=== PATIENT | male | born 1970 | race Caucasian/White ===

== ENCOUNTER 2017-01-11 12:25 | Emergency (ER) | payer MEDICAID | END 2017-01-11 14:25 | disposition home or self-care (01) | DX: M25.511 Pain in right shoulder (principal); G89.29 Other chronic pain; M54.9 Dorsalgia, unspecified; R03.0 Elevated blood-pressure reading, without diagnosis of hypertension; Z87.891 Personal history of nicotine dependence ==

== ENCOUNTER 2017-02-08 16:38 | Outpatient (CLI) | payer MEDICARE, MEDICAID ==
--- NOTE | 2017-02-08 18:08 | MRI Report ---
EXAM: RIGHT SHOULDER MRI WITHOUT CONTRAST EXAM DATE: 02/08/2017 05:17 PM. CLINICAL HISTORY: Tear of right rotator cuff, unspecified tear extent. COMPARISON: None. TECHNIQUE: Multiplanar, multisequence T1-weighted and fluid-sensitive sequences of the shoulder witho ut contrast. Other: None. FINDINGS: Acromioclavicular Region: The acromion is type II. AC joint shows moderate to severe osteoarthritis. Please see series 501 image 11. The coracoacromial and coracoclavicular ligaments are intact. No suba cromial/subdeltoid bursal fluid. Glenohumeral Region: No subluxation. No effusion or loose bodies. The articular cartilage is unremark able. The glenohumeral ligaments and joint capsule are unremarkable. Bone Marrow: No fractures are identified. Labrum: The labrum is unremarkable on this nonarthrographic study. Musculature/Rotator Cuff: Some increased T2 signal without focal tear is seen at the supraspinatus an d infraspinatus portions of the rotator cuff. Subscapularis also somewhat thickened. Teres minor is n ormal. No proximal muscular edema or fatty atrophy. Biceps Tendon: The long head of the biceps tendon and biceps cha are intact. Other: The subcutaneous tissues are unremarkable. IMPRESSION: 1. Type II unipartite undersurface osseous acromion shape. [id number] osteoarthritic changes of AC joint. Some edema on both sides of this articulation. Bone marrow shows no fractures. 2. Some tendinopathy/tendinitis seen at the supraspinatus and infraspinatus portions of the rotator c uff. Subscapularis is somewhat thickened. Teres minor is normal. No proximal muscular edema or fatty atrophy. Long head of biceps appears unremarkable. Labrum, capsular structures are normal. [facility] Referring Provider Line: [phone] SITE ID: [id number]
== END 2017-02-08 16:39 | disposition home or self-care (01) ==
LOC: DI 16:38
PROVIDERS: ATTEND Internal Medicine
DX: M19.011 Primary osteoarthritis, right shoulder (principal); M75.81 Other shoulder lesions, right shoulder

== ENCOUNTER 2017-10-20 09:53 | Outpatient (CLI) | payer MEDICARE, MEDICAID ==
[2017-10-20] MEDS ORDERED: IOPAMIDOL-300 50 ML VIAL ONE (10:19)
[2017-10-20] MEDS ORDERED: IOPAMIDOL-300 50 ML VIAL PO ONE (11:39)
--- NOTE | 2017-10-20 18:02 | CT Report ---
CT ABDOMEN WITHOUT CONTRAST: 10/20/2017 CLINICAL INDICATION: Epigastric pain. COMPARISON: 10/16/2015 TECHNIQUE: Axial CT images of the abdomen were obtained without intravenous contrast. Oral contrast was administered. In accordance with CT protocol optimization, one or more of the following dose reduction techniques were utilized for this exam: Automated exposure control, adjustment of mA and/or KV based on patient size, or use of iterative reconstructive technique. FINDINGS: Limited evaluation of the lung bases is unremarkable. The liver demonstrates a calcified granuloma in the medial left lobe. Allowing for the lack of intravenous contrast, no other focal liver abnormality is appreciated. The spleen, pancreas, kidneys and adrenal glands appear unremarkable. The gallbladder is surgically absent. No bowel dilatation, free gas, or free fluid is present. No abdominal adenopathy is seen. Osseous structures demonstrate degenerative changes. IMPRESSION: INCIDENTAL HEPATIC GRANULOMA. CHANGES OF CHOLECYSTECTOMY. TD: 10/20/2017 18:01
== END 2017-10-20 09:54 | disposition home or self-care (01) ==
LOC: DI 09:53
PROVIDERS: ATTEND Internal Medicine
DX: R10.13 Epigastric pain (principal); Z90.49 Acquired absence of other specified parts of digestive tract
CPT/HCPCS: 74150; Q9967

== ENCOUNTER 2017-12-30 20:53 | Emergency (ER) | payer MEDICAID, MEDICARE ==
[2017-12-30] MEDS ORDERED: SODIUM CHLORIDE 0.9% 1,000 ML IV ONE ×2 (21:28→22:20)
[2017-12-30 21:49] LABS: BASOPHILS # (AUTO) 0.1 10^3/uL (0.0-0.1); BASOPHILS % (AUTO) 1.3 %; EOSINOPHILS # (AUTO) 0.3 10^3/uL (0.0-0.7); EOSINOPHILS % (AUTO) 3.5 %; HGB - HEMOGLOBIN 16.7 g/dL (14.0-18.0); LYMPHOCYTES # (AUTO) 2.3 10^3/uL (1.5-3.5); LYMPHOCYTES % (AUTO) 26.9 %; MEAN CORPUSCULAR HEMOGLOBIN 27.7 pg (27.0-31.0); MEAN CORPUSCULAR HGB CONC 32.6 g/dL (32.0-36.0); MEAN PLATELET VOLUME 7.7 fL (7.4-11.4); MONOCYTES # (AUTO) 0.5 10^3/uL (0.0-1.0); MONOCYTES % (AUTO) 5.7 %; NEUTROPHILS # (AUTO) 5.4 10^3/uL (1.5-6.6); NEUTROPHILS % (AUTO) 62.6 %; PLT - PLATELET COUNT 322 10^3/uL (130-450); RED BLOOD COUNT 6.02 10^6/uL (4.70-6.10); RED CELL DISTRIBUTION WIDTH 14.6 % (12.0-15.0); WHITE BLOOD COUNT 8.7 x10^3/uL (4.8-10.8)
[2017-12-30] MEDS ORDERED: ONDANSETRON 4 MG/2 ML VIAL IVP STA (22:20)
[2017-12-30] MEDS ORDERED: LOPERAMIDE 2 MG CAPSULE PO STA (22:20)
[2017-12-30 22:32] LABS: ALBUMIN 4.6 g/dL (3.2-5.5); ALBUMIN/GLOBULIN RATIO 1.3 (1.0-2.2); BILIRUBIN,TOTAL 1.3 mg/dL (0.2-1.0); CALCIUM 9.5 mg/dL (8.5-10.3); CREATININE 0.8 mg/dL (0.6-1.2); TOTAL PROTEIN 8.2 g/dL (6.7-8.2)
[2017-12-30] MEDS ORDERED: KETOROLAC 60 MG/2 ML VIAL IVP STA (23:08)
[2017-12-30] MEDS ORDERED: METOCLOPRAMIDE 10 MG/2 ML VIAL IVP STA (23:08)
[2017-12-30] MEDS ORDERED: diphenhydrAMINE INJ 50 MG/ML VIAL IVP STA (23:08)
--- NOTE | 2017-12-30 23:55 | ED Physician Documentation ---
PD HPI NVD - Stated complaint Stated Complaint: N/V/D - Chief complaint Chief Complaint: Abd Pain - History obtained from History obtained from: Patient, Family - History of Present Illness Timing - onset: How many days ago (3) Timing - details: Gradual onset, Still present Associated symptoms: Abdominal pain Contributing factors: Bad food. No: Sick contact Similar symptoms before: Work up / diagnostics Recently seen: Not recently seen - Additonal information Additional information: Patient is a 47 year old male who is presenting to the emergency department for nausea, vomiting, diarrhea and headache. patient states that his symptoms started about three days ago with diarrhea after eating at [employer]. patient started with diarrhea which has improved, but developed vomiting over the last few days. patient states that being sick has also set off one of his migraines. Review of Systems Ten Systems: 10 systems reviewed and negative Constitutional: denies: Fever, Chills GI: reports: Nausea, Vomiting, Diarrhea Neurologic: reports: Headache PD PAST MEDICAL HISTORY - Past Medical History Cardiovascular: High cholesterol GI: GERD Psych: Depression, Anxiety, Post traumatic stress disorder Musculoskeletal: Chronic back pain - Past Surgical History Past Surgical History: Yes General: Cholecystectomy HEENT: Myringotomy (tubes), Tonsil/Adenoidectomy - Present Medications Home Medications: Ambulatory Orders Medication Instructions Recorded Confirmed DULoxetine [Cymbalta] 20 mg PO DAILY 08/23/14 08/05/16 oxyCODONE/ACET 5/325 [Percocet 5 1 - 2 each PO Q4-6H PRN #15 tablet 08/23/14 mg/325 mg] Omeprazole 20 mg PO DAILY 04/07/15 08/05/16 Cyclobenzaprine [Flexeril] 10 mg TID PRN 10/16/15 08/05/16 diazePAM [Valium] 5 mg PO TID PRN 10/16/15 08/05/16 Sucralfate 1 gm PO ACHS #120 tablet 10/31/15 08/05/16 raNITIdine [Zantac] 150 mg PO BID #60 tablet 10/31/15 08/05/16 Butalb/Acetaminophen/Caffeine 1 tab PO Q4HR PRN 07/08/16 08/05/16 [Fioricet 50-300-40 mg Capsule] Cholecalciferol [Vitamin D3] 1 tab PO DAILY 07/08/16 08/05/16 Docusate Sodium 100 mg PO BID #60 capsule 07/08/16 08/05/16 Pregabalin [Lyrica] 1 tab PO BID 07/08/16 08/05/16 QUEtiapine [SEROquel] 50 mg PO DAILY 07/08/16 08/05/16 buPROPion [Wellbutrin Sr] 1 tab PO BID 07/08/16 08/05/16 Ondansetron Odt [Zofran] 4 mg TL Q6H PRN #14 tablet 12/30/17 - Allergies Allergies/Adverse Reactions: Allergies Allergy/AdvReac Type Severity Reaction Status Date / Time codeine Allergy Severe Nausea Verified 12/30/17 21:09 meperidine HCl * AdvReac Headache Verified 12/30/17 21:09 [From Demerol] mirtazapine AdvReac Headache Verified 12/30/17 21:09 - Social History Does the pt smoke?: No Smoking Status: Never smoker Does the pt drink ETOH?: Yes Does the pt have substance abuse?: Yes - Immunizations Immunizations are current?: Yes - POLST Patient has POLST: No PD ED PE NORMAL - Vitals Vital signs reviewed: Yes - General General: Alert and oriented X 3 - HEENT HEENT: Atraumatic - Cardiac Cardiac: RRR - Respiratory Respiratory: No respiratory distress - Derm Derm: Normal color, Warm and dry - Extremities Extremities: No deformity - Neuro Neuro: Alert and oriented X 3 Eye Opening: Spontaneous PD ED PE EXPANDED - General General: Alert - HEENT HEENT: Dry mucous membranes - Abdomen Abdomen: Tender to palpation, Epigastric. No: Rebound, Guarding Results - Vitals Vitals: Vital Signs - 24 hr 12/30/17 12/30/17 21:07 23:56 Temperature 36.4 C L Heart Rate 81 87 Respiratory 16 15 Rate Blood Pressure 142/101 H 133/83 H O2 Saturation 99 99 Oxygen O2 Source Room air - Labs Labs: Laboratory Tests 12/30/17 12/30/17 21:41 21:41 WBC 8.7 RBC 6.02 Hgb 16.7 Hct 51.2 MCV 85.0 MCH 27.7 MCHC 32.6 RDW 14.6 Plt Count 322 MPV 7.7 Neut # 5.4 Lymph # 2.3 [place] # 0.5 Eos # 0.3 Baso # 0.1 Absolute Nucleated RBC 0.01 Nucleated RBC % 0.1 Sodium 138 Potassium 3.5 Chloride 108 Carbon Dioxide 20 L Anion Gap 10.0 BUN 21 H Creatinine 0.8 Estimated GFR (MDRD) 103 Glucose 93 Calcium 9.5 Total Bilirubin 1.3 H AST 31 ALT 47 Alkaline Phosphatase 81 Total Protein 8.2 Albumin 4.6 Globulin 3.6 Albumin/Globulin Ratio 1.3 Lipase 55 H PD MEDICAL DECISION MAKING - ED course Complexity details: reviewed old records, reviewed results, re-evaluated patient , considered differential, d/w patient, d/w family ED course: Patient was seen and examined at bedside. IV access was gained and labs were drawn. patient was treated with fluid bolus and zofran. patient stated that he was developing a headache and was treated with toradol, reglan and benadryl. Patient ultimately was treated with two liters of fluids. patient's diagnostics were relatively unremarkable. Patient's symptoms had improved and he had no episodes of vomiting or diarrhea while in the emergency department. patients episode of C-diff was over six years ago after antibiotic use. Patient had no active diarrhea so c-diff was very unlikely. Departure - Departure Disposition: 01 Home, Self Care Clinical Impression: Gastroenteritis Condition: Good Instructions: ED Gastroenteritis Bacterial Follow-Up: BRETT TAM MD [Primary Care Provider] - As Needed Prescriptions: Ondansetron Odt [Zofran] 4 mg TL Q6H PRN #14 tablet PRN Reason: Nausea / Vomiting Comments: Your symptoms today are being caused by gastroenteritis. It is important that you take the zofran for nausea and stay well hydrated. You should drink gatorade or other electrolyte solution. You can follow up with your doctor if your symptoms persist. You may return to the emergency department at any time for new, worsening or uncontrollable symptoms. Discharge Date/Time: 12/31/17 00:07
[2017-12-30 23:57] VITALS: BP 133/83
== END 2017-12-31 00:07 | disposition home or self-care (01) ==
LOC: ED 20:53
DX: K52.9 Noninfective gastroenteritis and colitis, unspecified (principal); E78.00 Pure hypercholesterolemia, unspecified; K21.9 Gastro-esophageal reflux disease without esophagitis
CPT/HCPCS: 36415; 80053; 83690; 85025; 96361; 96374; 96375; 99283; 99284; A9270; J1200; J2765

== ENCOUNTER 2018-01-05 09:44 | Outpatient (CLI) | payer MEDICARE ==
[2018-01-05 10:52] LABS: HB2 TOTAL 17.4 g/dL; HEMOGLOBIN A1C 0.6 g/dL; HEMOGLOBIN A1C % 5.3 % (4.6-6.2)
[2018-01-05 11:17] LABS: ALBUMIN 4.4 g/dL (3.2-5.5); ALBUMIN/GLOBULIN RATIO 1.6 (1.0-2.2); ALKALINE PHOSPHATASE 66 IU/L (42-121); ALT ALANINE AMINOTRANSFERASE 34 IU/L (10-60); AST ASPARTATE AMINOTRANSFERASE 27 IU/L (10-42); BILIRUBIN,TOTAL 0.9 mg/dL (0.2-1.0); BUN - BLOOD UREA NITROGEN 14 mg/dL (6-20); CARBON DIOXIDE - CO2 25 mmol/L (21-32); CHLORIDE 105 mmol/L (101-111); CHOL/HDL RATIO 7.5 (<5.0); CHOLESTEROL 240 mg/dL; CREATININE 0.9 mg/dL (0.6-1.2); GFR - MDRD 90 (>89); GLUCOSE 106 mg/dL (70-100); HDL CHOLESTEROL 32 mg/dL; LDL CHOLESTEROL,CALCULATED 154 mg/dL; LDL/HDL RATIO 4.8 (<3.6); SODIUM 138 mmol/L (135-145); TOTAL PROTEIN 7.2 g/dL (6.7-8.2); VLDL CHOLESTEROL 54 mg/dL
== END 2018-01-05 09:45 | disposition home or self-care (01) ==
LOC: LAB 09:44
PROVIDERS: ATTEND Internal Medicine
DX: R73.9 Hyperglycemia, unspecified (principal); I10 Essential (primary) hypertension; E78.5 Hyperlipidemia, unspecified; E55.9 Vitamin D deficiency, unspecified; E53.8 Deficiency of other specified B group vitamins
CPT/HCPCS: 36415; 80053; 80061; 83036; 83721; 84443

== ENCOUNTER 2018-05-11 09:38 | Outpatient (CLI) | payer MEDICARE | END 2018-05-11 09:39 | disposition home or self-care (01) | LOC: SC 09:38 | PROVIDERS: ATTEND Nurse Practitioner Family | DX: G47.10 Hypersomnia, unspecified (principal); G47.8 Other sleep disorders; R06.83 Snoring; R06.00 Dyspnea, unspecified; Z87.891 Personal history of nicotine dependence; R05 Cough; R06.2 Wheezing | CPT/HCPCS: 99204; G0463; 99212 ==

== ENCOUNTER 2018-05-26 20:33 | Outpatient (CLI) | payer MEDICARE | END 2018-05-26 20:34 | disposition home or self-care (01) | LOC: EDBD → SC 20:33 | PROVIDERS: ATTEND Internal Medicine Pulmonary Disease | DX: G47.33 Obstructive sleep apnea (adult) (pediatric) (principal); G47.61 Periodic limb movement disorder | CPT/HCPCS: 95810 ==

== ENCOUNTER 2018-06-27 14:15 | Outpatient (CLI) | payer MEDICARE | END 2018-06-27 14:16 | disposition home or self-care (01) | LOC: SC 14:15 | PROVIDERS: ATTEND Nurse Practitioner Family | DX: G47.33 Obstructive sleep apnea (adult) (pediatric) (principal); G47.61 Periodic limb movement disorder | CPT/HCPCS: 99214; G0463; 99212 ==

== ENCOUNTER 2018-12-31 13:51 | Emergency (ER) | payer MEDICARE ==
[2018-12-31 14:14] VITALS: BP 143/102
[2018-12-31] MEDS ORDERED: PREGABALIN 25 MG CAPSULE PO STA (14:29)
[2018-12-31] MEDS ORDERED: PREGABALIN 100 MG CAPSULE PO STA (14:29)
--- NOTE | 2018-12-31 14:31 | ED Physician Documentation ---
PD HPI MHE - Stated complaint Stated Complaint: WITHDRAWALS - Chief complaint Chief Complaint: MHE - History obtained from History obtained from: Patient, Family - History of Present Illness Primary symptom: Other (48-year-old gentleman on Lyrica long-term for fibromyalgia ran out 2 days ago because of a lapse in his Medicare part D and is feeling shooting pains all over, hot on the upper half and cold on the lower half, and anxious.) Review of Systems Constitutional: denies: Fever, Chills Cardiac: denies: Chest pain / pressure, Palpitations Respiratory: denies: Dyspnea, Cough GI: denies: Abdominal Pain PD PAST MEDICAL HISTORY - Past Medical History Cardiovascular: High cholesterol GI: GERD Psych: Depression, Anxiety, Post traumatic stress disorder Musculoskeletal: Chronic back pain - Past Surgical History Past Surgical History: Yes General: Cholecystectomy HEENT: Myringotomy (tubes), Tonsil/Adenoidectomy - Present Medications Home Medications: Ambulatory Orders Medication Instructions Recorded Confirmed oxyCODONE/ACET 5/325 [Percocet 5 1 - 2 each PO Q4-6H PRN #15 tablet 08/23/14 12/31/18 mg/325 mg] Omeprazole 20 mg PO DAILY 04/07/15 12/31/18 Cyclobenzaprine [Flexeril] 10 mg TID PRN 10/16/15 12/31/18 Sucralfate 1 gm PO ACHS #120 tablet 10/31/15 12/31/18 raNITIdine [Zantac] 150 mg PO BID #60 tablet 10/31/15 08/05/16 Butalb/Acetaminophen/Caffeine 1 tab PO Q4HR PRN 07/08/16 12/31/18 [Fioricet 50-300-40 mg Capsule] Cholecalciferol [Vitamin D3] 1 tab PO DAILY 07/08/16 12/31/18 Docusate Sodium 100 mg PO BID #60 capsule 07/08/16 12/31/18 Pregabalin [Lyrica] 1 tab PO BID 07/08/16 12/31/18 QUEtiapine [SEROquel] 50 mg PO DAILY 07/08/16 08/05/16 Ondansetron Odt [Zofran] 4 mg TL Q6H PRN #14 tablet 12/30/17 12/31/18 Lorazepam [Ativan] 1 mg PO TID PRN #7 tablet 12/31/18 - Allergies Allergies/Adverse Reactions: Allergies Allergy/AdvReac Type Severity Reaction Status Date / Time codeine Allergy Severe Nausea Verified 12/31/18 14:14 meperidine HCl * AdvReac Headache Verified 12/31/18 14:14 [From Demerol] mirtazapine AdvReac Headache Verified 12/31/18 14:14 - Social History Does the pt smoke?: No Smoking Status: Never smoker Does the pt drink ETOH?: Yes Does the pt have substance abuse?: Yes - Immunizations Immunizations are current?: Yes - POLST Patient has POLST: No PD ED PE NORMAL - Vitals Vital signs reviewed: Yes - General General: Alert and oriented X 3, Other (Slightly restless) - HEENT HEENT: PERRL, Pharynx benign - Cardiac Cardiac: RRR, No murmur - Respiratory Respiratory: No respiratory distress, Clear bilaterally - Abdomen Abdomen: Non tender - Neuro Neuro: Alert and oriented X 3, Normal speech Results - Vitals Vitals: Vital Signs - 24 hr 12/31/18 14:08 Temperature 36.2 C L Heart Rate 84 Respiratory 20 Rate Blood Pressure 143/102 H O2 Saturation 100 Oxygen O2 Source Room air PD MEDICAL DECISION MAKING - ED course ED course: 48-year-old gentleman presents with Lyrica withdrawal. He is given a dose here. He has a prescription for Lyrica and, just cannot afford it. I offered to give him a prescription for gabapentin but he has intolerable side effects with that so he is given a prescription for a few Ativan until the issue is worked out. 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 Return for new or worsening symptoms or if there is any other way we can help you.
== END 2018-12-31 14:55 | disposition home or self-care (01) ==
LOC: ED 13:51
DX: F19.230 Other psychoactive substance dependence with withdrawal, uncomplicated (principal); R52 Pain, unspecified; F41.9 Anxiety disorder, unspecified; F43.10 Post-traumatic stress disorder, unspecified; Z79.891 Long term (current) use of opiate analgesic
CPT/HCPCS: 99283; A9270

== ENCOUNTER 2019-01-02 07:39 | Inpatient (IN) | payer MEDICARE ==
--- NOTE | 2019-01-02 08:09 | ED Physician Documentation ---
PD HPI NVD - Stated complaint Stated Complaint: VOMITING - Chief complaint Chief Complaint: Abd Pain - History obtained from History obtained from: Patient - History of Present Illness Timing - onset: How many days ago (2) Timing - duration: Days (2) Timing - details: Abrupt onset, Still present Associated symptoms: Abdominal pain (Mid to upper abdomen), Loss of appetite. No: Fever, Chest pain, Hematemesis (but is bilious), Near syncope / syncope, Dysuria Contributing factors: No: Sick contact, Bad food, Travel Improved by: No: Vomiting Worsened by: Eating, Moving, Position Similar symptoms before: Diagnosis (He says it does feel similar to his gallbladder problems in the past.) Recently seen: Emergency Dept (He was seen in the emergency room 3 days ago due to being out of his Lyrica and feeling lightheaded and general aches. He was given a dose of Ativan. He is unable to get his Lyrica filled because of insurance changing. He was given a prescription for Ativan in the interim. He states later in that day after the visit he started with nausea vomiting and abdominal pain. He thought it was still related to the stopping of the Lyrica and try the Ativan without success. He is continued with abdominal pain nausea and vomiting. He states he has not had any diarrhea. He denies fever or chills.) Review of Systems Constitutional: reports: Fatigue. denies: Fever, Chills Nose: denies: Rhinorrhea / runny nose, Congestion Throat: denies: Sore throat Cardiac: denies: Chest pain / pressure, Palpitations Respiratory: denies: Cough GI: reports: Abdominal Pain, Nausea, Vomiting. denies: Constipation, Diarrhea, Hematemesis : denies: Dysuria, Frequency Musculoskeletal: denies: Neck pain, Back pain Neurologic: reports: Generalized weakness. denies: Focal weakness, Numbness, Altered mental status, Headache PD PAST MEDICAL HISTORY - Past Medical History Cardiovascular: High cholesterol Respiratory: None GI: GERD Psych: Depression, Anxiety, Post traumatic stress disorder Musculoskeletal: Fibromyalgia, Chronic back pain - Past Surgical History Past Surgical History: Yes General: Cholecystectomy HEENT: Myringotomy (tubes), Tonsil/Adenoidectomy - Present Medications Home Medications: Ambulatory Orders Medication Instructions Recorded Confirmed oxyCODONE/ACET 5/325 [Percocet 5 1 - 2 each PO Q4-6H PRN #15 tablet 08/23/14 12/31/18 mg/325 mg] Omeprazole 20 mg PO DAILY 04/07/15 12/31/18 Cyclobenzaprine [Flexeril] 10 mg TID PRN 10/16/15 12/31/18 Sucralfate 1 gm PO ACHS #120 tablet 10/31/15 12/31/18 raNITIdine [Zantac] 150 mg PO BID #60 tablet 10/31/15 08/05/16 Butalb/Acetaminophen/Caffeine 1 tab PO Q4HR PRN 07/08/16 12/31/18 [Fioricet 50-300-40 mg Capsule] Cholecalciferol [Vitamin D3] 1 tab PO DAILY 07/08/16 12/31/18 Docusate Sodium 100 mg PO BID #60 capsule 07/08/16 12/31/18 Pregabalin [Lyrica] 1 tab PO BID 07/08/16 12/31/18 QUEtiapine [SEROquel] 50 mg PO DAILY 07/08/16 08/05/16 Ondansetron Odt [Zofran] 4 mg TL Q6H PRN #14 tablet 12/30/17 12/31/18 Lorazepam [Ativan] 1 mg PO TID PRN #7 tablet 12/31/18 - Allergies Allergies/Adverse Reactions: Allergies Allergy/AdvReac Type Severity Reaction Status Date / Time codeine Allergy Severe Nausea Verified 01/02/19 07:48 ketamine AdvReac Hallucinati Verified 01/02/19 12:17 ons meperidine HCl * AdvReac Headache Verified 01/02/19 07:48 [From Demerol] mirtazapine AdvReac Headache Verified 01/02/19 07:48 - Social History Does the pt smoke?: No Smoking Status: Never smoker Does the pt drink ETOH?: Yes Does the pt have substance abuse?: Yes Substance Use and Type: Marijuana - Immunizations Immunizations are current?: Yes - POLST Patient has POLST: No PD ED PE NORMAL - Vitals Vital signs reviewed: Yes - General General: Alert and oriented X 3, Well developed/nourished, Other (Appears in considerable discomfort in the mid to upper abdomen with repetitive vomiting.) - HEENT HEENT: Pharynx benign. No: Moist mucous membranes - Neck Neck: Supple, no meningeal sign, No adenopathy - Cardiac Cardiac: RRR, No murmur - Respiratory Respiratory: Clear bilaterally - Abdomen Abdomen: Soft, No organomegaly, Other Results - Vitals Vitals: Vital Signs - 24 hr 01/02/19 01/02/19 01/02/19 07:46 09:48 11:30 Temperature 36.2 C L Heart Rate 97 78 86 Respiratory 18 16 16 Rate Blood Pressure 134/92 H 134/99 H 125/89 H O2 Saturation 99 98 96 01/02/19 01/02/19 01/02/19 11:40 11:41 12:41 Temperature Heart Rate 89 97 Respiratory 18 18 Rate Blood Pressure 135/101 H 119/96 H O2 Saturation 98 98 01/02/19 13:32 Temperature Heart Rate 83 Respiratory 16 Rate Blood Pressure 105/71 O2 Saturation 97 Oxygen O2 Source Room air - Labs Labs: Laboratory Tests 01/02/19 01/02/19 01/02/19 08:40 08:40 08:40 WBC 10.8 RBC 6.64 H Hgb 18.6 H Hct 55.4 H MCV 83.4 MCH 28.0 MCHC 33.6 RDW 14.6 Plt Count 350 MPV 7.9 Neut # (Auto) 8.0 H Lymph # (Auto) 2.0 [place] # (Auto) 0.6 Eos # (Auto) 0.1 Baso # (Auto) 0.2 H Absolute Nucleated RBC 0.02 Nucleated RBC % 0.2 Manual Slide Review Indicated RBC Morph Micro Appear 1+ ANISOCYTOSIS Sodium 138 Potassium 3.4 L Chloride 104 Carbon Dioxide 18 L Anion Gap 16.0 H BUN 20 Creatinine 0.9 Estimated GFR (MDRD) 89 Glucose 111 H Lactic Acid 1.3 Calcium 10.0 Magnesium 1.9 Total Bilirubin 1.8 H AST 62 H ALT 96 H Alkaline Phosphatase 69 Total Protein 8.3 H Albumin 4.7 Globulin 3.6 Albumin/Globulin Ratio 1.3 Lipase 53 H Urine Opiates Screen Ur Oxycodone Screen Urine Methadone Screen Ur Propoxyphene Screen Ur Barbiturates Screen Ur Tricyclics Screen Ur Phencyclidine Scrn Ur Amphetamine Screen U Methamphetamines Scrn U Benzodiazepines Scrn Urine Cocaine Screen U Cannabinoids Screen 01/02/19 10:06 WBC RBC Hgb Hct MCV MCH MCHC RDW Plt Count MPV Neut # (Auto) Lymph # (Auto) [place] # (Auto) Eos # (Auto) Baso # (Auto) Absolute Nucleated RBC Nucleated RBC % Manual Slide Review RBC Morph Micro Appear Sodium Potassium Chloride Carbon Dioxide Anion Gap BUN Creatinine Estimated GFR (MDRD) Glucose Lactic Acid Calcium Magnesium Total Bilirubin AST ALT Alkaline Phosphatase Total Protein Albumin Globulin Albumin/Globulin Ratio Lipase Urine Opiates Screen POSITIVE H Ur Oxycodone Screen NEGATIVE Urine Methadone Screen NEGATIVE Ur Propoxyphene Screen NEGATIVE Ur Barbiturates Screen NEGATIVE Ur Tricyclics Screen POSITIVE H Ur Phencyclidine Scrn NEGATIVE Ur Amphetamine Screen NEGATIVE U Methamphetamines Scrn NEGATIVE U Benzodiazepines Scrn POSITIVE H Urine Cocaine Screen NEGATIVE U Cannabinoids Screen POSITIVE H - Rads (name of study) abd/pelvic CT Radiology: Prelim report reviewed (Post cholecystectomy. There is some dilation of the common bile duct over baseline. There is question of some sludging through the common bile duct. No other acute process. No signs of ob struction.), EMP read contemporaneously, See rad report PD MEDICAL DECISION MAKING - ED course Complexity details: re-evaluated patient (He is taking repeated doses of pain medications in order to remain comfortable. Dilaudid was working temporarily but not consistent or persistent. I did try a dose of ketamine which was just at 0.2 mg/kg. This gave him a considerable side effect of anxiety and agitation and he was did not like it. It was improved with some Ativan. We remained with antiemetics and pain medicines. Due to the persistence of it, we did do a CT scan which showed a some dilation of the common bile duct. He also has some mild elevation of the liver enzymes. His alk phos is not elevated and lipase is normal. At this point I do not know whether it is gastritis or gastroparesis type process. He likely needs an MRCP for better evaluation of the bile duct. I discussed it with the hospitalist Dr. Caban who will assume care of the patient.), considered differential, d/w patient Departure - Departure Disposition: ED Place in Observation Clinical Impression: Intractable abdominal pain Nausea and vomiting Qualifiers: Vomiting type: bilious vomiting Qualified Code(s): R11.14 - Bilious vomiting Abdominal pain Qualifiers: Abdominal location: upper abdomen, unspecified Qualified Code(s): R10.10 - Upper abdominal pain, unspecified Condition: Stable Record reviewed to determine appropriate education?: Yes
[2019-01-02] MEDS ORDERED: SODIUM CHLORIDE 0.9% 1,000 ML IV ONE ×2 (08:20→13:44)
[2019-01-02] MEDS ORDERED: MORPHINE 10 MG/ML VIAL IVP STA (08:21)
[2019-01-02] MEDS ORDERED: LORazepam 2 MG/ML VIAL IVP STA ×2 (08:21→12:13)
[2019-01-02] MEDS ORDERED: ONDANSETRON 4 MG/2 ML VIAL IVP STA (08:21)
[2019-01-02 09:01] LABS: BASOPHILS # (AUTO) 0.2 10^3/uL (0.0-0.1); BASOPHILS % (AUTO) 1.7 %; EOSINOPHILS # (AUTO) 0.1 10^3/uL (0.0-0.7); HGB - HEMOGLOBIN 18.6 g/dL (14.0-18.0); LYMPHOCYTES % (AUTO) 18.1 %; MEAN CORPUSCULAR HGB CONC 33.6 g/dL (32.0-36.0); MEAN CORPUSCULAR VOLUME 83.4 fL (80.0-94.0); MEAN PLATELET VOLUME 7.9 fL (7.4-11.4); MONOCYTES # (AUTO) 0.6 10^3/uL (0.0-1.0); MONOCYTES % (AUTO) 5.2 %; PLT - PLATELET COUNT 350 10^3/uL (130-450); RED BLOOD COUNT 6.64 10^6/uL (4.70-6.10); RED CELL DISTRIBUTION WIDTH 14.6 % (12.0-15.0); WHITE BLOOD COUNT 10.8 x10^3/uL (4.8-10.8)
[2019-01-02 09:05] LABS: ALBUMIN 4.7 g/dL (3.2-5.5); ALBUMIN/GLOBULIN RATIO 1.3 (1.0-2.2); BILIRUBIN,TOTAL 1.8 mg/dL (0.2-1.0); CREATININE 0.9 mg/dL (0.6-1.2); MAGNESIUM 1.9 mg/dL (1.7-2.8); TOTAL PROTEIN 8.3 g/dL (6.7-8.2)
[2019-01-02] MEDS ORDERED: KETOROLAC 15 MG/ML VIAL IVP STA (09:23)
[2019-01-02] MEDS ORDERED: HYDROmorphone 1 MG/ML CARPUJECT IVP STA ×2 (09:23→10:32)
[2019-01-02 09:37] LABS: RBC MORPHOLOGY (MULTIPLE) 1+ ANISOCYTOSIS (NORMAL)
[2019-01-02] MEDS ORDERED: PREGABALIN 100 MG CAPSULE PO STA ×2 (09:38)
[2019-01-02] MEDS ORDERED: PREGABALIN 25 MG CAPSULE PO STA (09:50)
[2019-01-02 10:29] LABS: MUDS CUTOFF CONCENTRATIONS CUTOFF CONC BELOW:
[2019-01-02 10:40] LABS: AMPHETAMINE SCREEN,URINE NEGATIVE (NEGATIVE); BENZODIAZEPINES SCREEN, URINE POSITIVE (NEGATIVE); COCAINE SCREEN URINE NEGATIVE (NEGATIVE); METHADONE SCREEN, URINE NEGATIVE (NEGATIVE); METHAMPHETAMINES SCREEN, URINE NEGATIVE (NEGATIVE); OPIATE SCREEN, URINE POSITIVE (NEGATIVE); OXYCODONE SCREEN, URINE NEGATIVE (NEGATIVE); PROPOXYPHENE SCREEN, URINE NEGATIVE (NEGATIVE); TRICYCLIC ANTIDEPRESSANT,URINE POSITIVE (NEGATIVE)
[2019-01-02] MEDS ORDERED: IOVERSOL 320 100 ML VIAL IVP ONE ×2 (10:44→12:16)
[2019-01-02] MEDS ORDERED: KETAMINE 500 MG/10 ML VIAL IVP STA (11:50)
[2019-01-02] MEDS ORDERED: DICYCLOMINE 10 MG CAPSULE PO STA (11:51)
--- NOTE | 2019-01-02 12:16 | CT Report ---
Reason: abd pain and vomiting Procedure Date: 01/02/2019 Accession Number: [id number] / [id number] Procedure: CT - Abdomen/Pelvis W CPT Code: FULL RESULT: EXAM: CT ABDOMEN AND PELVIS EXAM DATE: 01/02/2019 11:57 AM. CLINICAL HISTORY: Abd pain and vomiting. COMPARISONS: CT of the abdomen and pelvis without IV contrast from 10/20/2017. TECHNIQUE: Routine helical CT imaging was performed through the abdomen and pelvis. IV contrast: 100 cc Optiray 320. Enteric contrast: No. Reconstructions: Coronal and sagittal. In accordance with CT protocol optimization, one or more of the following dose reduction techniques were utilized for this exam: automated exposure control, adjustment of mA and/or KV based on patient size, or use of iterative reconstructive technique. FINDINGS: Lung Bases: There is mild atelectasis in the lung bases. Otherwise unremarkable. Liver: There is diffuse low-attenuation of the liver, compatible with hepatic steatosis. A calcification is present in hepatic segment 4B, possibly sequela of previous granulomatous disease. Gallbladder/Bile Ducts: The gallbladder is surgically absent. The common bile duct which is approximately 9 mm, which is increased in caliber from the prior examination (series 5, image 26). Although within normal limits in caliber for postcholecystectomy state, there is questionable increased density within the lumen of the distal common bile duct (series 3, image 31). Spleen: Unremarkable. Pancreas: Unremarkable. Adrenal Glands: No nodules. Kidneys: No focal lesions or hydronephrosis. Peritoneal Cavity/Bowel: No evidence of bowel obstruction or inflammation. Appendix is within normal limits. Pelvic Organs: Urinary bladder is unremarkable. No pelvic adenopathy or free fluid. Vasculature: There is mild atherosclerotic calcification of the abdominal aorta. No abdominal aortic aneurysm. Bones: No suspicious osseous lesion. Other: None. IMPRESSION: 1. No evidence of acute infectious or inflammatory process in the abdomen or pelvis. 2. No evidence of bowel obstruction. 3. Hepatic steatosis. 4. Caliber of the common bile duct is within normal limits for postcholecystectomy reservoir effect. However, it is increased in caliber from the prior examination and demonstrates possible intraluminal dense material, which could represent artifact or retained stone. Consider correlation with serum bilirubin. MRCP could also be considered for further evaluation. [facility]
[2019-01-02] MEDS ORDERED: FAMOTIDINE 20 MG/2 ML VIAL IVP STA (12:39)
[2019-01-02] MEDS ORDERED: HYDROmorphone 2 MG/ML VIAL IVP STA (12:39)
[2019-01-02] MEDS ORDERED: METOCLOPRAMIDE 10 MG/2 ML VIAL IVP STA (12:39)
[2019-01-02] MEDS ORDERED: diphenhydrAMINE INJ 50 MG/ML VIAL IVP STA (12:39)
[2019-01-02] MEDS ORDERED: SODIUM CHLORIDE FLUSH 0.9% 10 ML SYRINGE IVP PRN (14:17)
--- NOTE | 2019-01-02 14:20 | HISTORY & PHYSICAL EXAMINATION ---
Chief Complaint - Chief Complaint Chief Complaint: abdominal pain, intractable N/V/D Abdominal Pain HPI - Admitted From Admitted from: ED - History Obtained From Records Reviewed: RN notes reviewed, Old records reviewed History obtained from: Patient, Family Exam limitations: Other (AMS) - History of Present Illness Pain/Problem Location Description: nausea, vomiting, diarrhea Severity at the worst: Severe Pain Quality: Dull, Cramping Context-Pain started w/: Eating, Movement, Palpation Timing: Gradual onset, Constant, Intermittent Duration: Days: (4 days) Improved with: Nothing Worsened by: Eating, Nothing Associated symptoms: Diaphoresis, Nausea, General Weakness HPI Comment/Other: Carson Tanner is a 48-year old male with a past medical history of hypertension, hyperlipidemia, angina, fibromyalgia, GERD, hiatal hernia, tooth decay, external hemorrhoids, anal fissures, insomnia, depression, anxiety, chronic pain syndrome, GI bleeding, PTSD, substance abuse, tobacco dependence, marijuana dependence, several ENT surgeries as a child, mild hearing loss, chronic vision loss, and status post hernia repair several years ago. He came to the ED today accompanied by his with a 4 day history of abdominal pain, nausea, vomiting, and diarrhea. He states that he could not tolerate any food or liquids for the past 4 days. On my exam, the patient complained of ongoing RUQ, umbilical pain that is intermittent, has "creepy crawling" to his skin, body aches, hiccups, dizziness, weakness, and has recently run out of Lyrica. The patient admits to taking repeated doses of pain medications in order to remain comfortable at home, but on a review of his home medications he takes a polypharmacy including; dicyclomine, seroquel, venlafaxine, oxycodone/APAP, fioricet, pregabalin, lorazepam, and flexeril. In the ED several modalities were attempted including, Dilaudid, ketamine, and Ativan, but the patient continued to have uncontrolled pain. Imaging showed some dilation of the common bile duct. Labs showed a WBC count of 10.8, elevated H/H at 18.6/55.4, MCV of 83.4, neut # 8.0, potassium of 3.4, glucose 111, lactic acid 1.3, bili 1.8, AST 62, ALT 96, lipase 53, with no other abnormalities. He will be admitted to observation for pain control, MRCP, treated for suspected marijuana induced hyperemesis syndrome using scheduled Reglan, antiemetics. PMH/PSH - Past Medical History Cardiovascular: positive: Hypertension, High cholesterol, Peripheral Vascular Disease, Murmur Respiratory: positive: COPD Neuro: positive: Headaches, Migraines, Peripheral neuropathy, Tremors Endocrine/Autoimmune: positive: None GI: positive: GERD, GI bleed, Hemorrhoids : positive: Renal insuffiency, Nocturia HEENT: positive: Chronic vision loss, Chronic sinusitis, Chronic hearing loss Psych: positive: Depression, Anxiety, Post traumatic stress disorder Musculoskeletal: positive: Fibromyalgia, Fatigue, Chronic back pain Derm: positive: None MRSA Hx?: No - Past Surgical History General: positive: Cholecystectomy, Colonoscopy, EGD HEENT: positive: Myringotomy (tubes), Tonsil/Adenoidectomy Social & Family Hx - Living Situation Living Arrangement: At home Living Situation: With spouse/s.o. 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 He does not work outside the home, and still drives around [place], but not for long distance trips. He admits to occasional alcohol use, no illicit drug use (except for daily marijuana), and smoked cigarettes from age [age]. He wishes to be a FULL code. - POLST Patient has POLST: No POLST Status: Full Code - Family History Family History: Mother: , CAD, Father: , Mental Illness Meds/Allgy - Home Medications Home Medications: Ambulatory Orders Medication Instructions Recorded Confirmed Omeprazole 20 mg PO BID 04/07/15 01/02/19 Cyclobenzaprine [Flexeril] 10 mg PO DAILY 10/16/15 01/02/19 Sucralfate 1 gm PO ACHS #120 tablet 10/31/15 01/02/19 raNITIdine [Zantac] 150 mg PO BID #60 tablet 10/31/15 01/02/19 Butalb/Acetaminophen/Caffeine 1 tab PO PRN PRN 07/08/16 01/02/19 [Fioricet 50-300-40 mg Capsule] Pregabalin [Lyrica] 150 mg PO BID 07/08/16 01/02/19 QUEtiapine [SEROquel] 50 mg PO QPM 07/08/16 01/02/19 Lorazepam [Ativan] 1 mg PO TID PRN #7 tablet 12/31/18 01/02/19 Dicyclomine HCl 10 mg PO BID 01/02/19 01/02/19 Venlafaxine HCl [Venlafaxine HCl 150 mg PO DAILY 01/02/19 01/02/19 ER] oxyCODONE/ACET 5/325 [Percocet 5 2 tab PO BID 01/02/19 01/02/19 mg/325 mg] - Allergies Allergies/Adverse Reactions: Allergies Allergy/AdvReac Type Severity Reaction Status Date / Time codeine Allergy Severe Nausea Verified 01/02/19 07:48 ketamine AdvReac Hallucinati Verified 01/02/19 12:17 ons meperidine HCl * AdvReac Headache Verified 01/02/19 07:48 [From Demerol] mirtazapine AdvReac Headache Verified 01/02/19 07:48 Review of Systems - Constitutional Constitutional: reports: Fatigue, Chills, Weakness, Poor appetite, Diaphoresis, Night sweats - Eyes Eyes: reports: Blurred vision, Vision loss - Ears, Nose & Throat Ears, Nose & Throat: reports: Hearing loss, Tinnitus, Postnasal drainage, Dentures, Hoarseness, Dental decay - Cardiovascular Cariovascular: reports: Lightheadedness, Decr. exercise tolerance - Respiratory Respiratory: reports: Cough, Wheezing, SOB with exertion - Gastrointestinal Gastrointestinal: reports: Abdominal pain, Abdominal distention, Change in bowel habits, Nausea, Vomiting, Bile emesis, Reflux/heartburn, Bloating, Poor appetite - Genitourinary Genitourinary: reports: Dysuria, Nocturia - Musculoskeletal Musculoskeletal: reports: Back pain, Muscle aches, Joint pain, Joint swelling - Integumentary Integumentary: reports: Lesions, Dryness - Neurological Neurological: reports: General weakness, Pre-existing deficit - Psychiatric Psychiatric: reports: Depression, Anxiety - All Other Systems All Other Systems: reports: Reviewed and negative Prior Level of Functionality: 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 Exam - Vital Signs Reviewed Vital Signs: Yes Vital Signs: Vital Signs x48h Temp Pulse Resp BP Pulse Ox 01/02/19 13:32 83 16 105/71 97 01/02/19 12:41 97 18 119/96 H 98 01/02/19 11:41 135/101 H 01/02/19 11:40 89 18 98 01/02/19 11:30 86 16 125/89 H 96 01/02/19 09:48 78 16 134/99 H 98 01/02/19 07:46 36.2 C L 97 18 134/92 H 99 - Physical Exam General Appearance: positive: Alert, Moderate distress Eyes Bilateral: positive: PERRL ENT: positive: Pharynx nml, Dry mucous membranes Neck: positive: Thyroid nml, No JVD, Trachea midline Respiratory: positive: Chest non-tender, No respiratory distress, Breath sounds nml Cardiovascular: positive: Regular rate & rhythm, No gallop, Tachycardia, Systolic murmur Peripheral Pulses: positive: 2+ Abdomen: positive: Tenderness, Guarding, Abnml bowel sounds (hypoactive) Back: positive: Nml inspection Skin: positive: Color nml, No rash, Warm, Dry Extremities: positive: Non-tender, Full ROM, Nml appearance, No pedal edema Neurologic/Psychiatric: positive: Oriented x3, CN's nml (2-12), Motor nml, Sensation nml, Mood/affect nml, Weakness Reflexes: Bicep (R): 3+, Bicep (L): 3+ Results - Lab Results Lab results reviewed: Yes Fish Bones: 01/03/19 07:40 01/03/19 07:40 Other Lab Results: Lab Results x24hrs 01/02/19 01/02/19 01/02/19 Range/Units 10:06 08:40 08:40 WBC (4.8-10.8) x10^3/uL RBC (4.70-6.10) 10^6/uL Hgb (14.0-18.0) g/dL Hct (42.0-52.0) % MCV (80.0-94.0) fL MCH (27.0-31.0) pg MCHC (32.0-36.0) g/dL RDW (12.0-15.0) % Plt Count (130-450) 10^3/uL MPV (7.4-11.4) fL Neut # (Auto) (1.5-6.6) 10^3/uL Lymph # (Auto) (1.5-3.5) 10^3/uL [facility] # (Auto) (0.0-1.0) 10^3/uL Eos # (Auto) (0.0-0.7) 10^3/uL Baso # (Auto) (0.0-0.1) 10^3/uL Absolute Nucleated RBC x10^3/uL Nucleated RBC % /100WBC Manual Slide Review RBC Morph Micro Appear (NORMAL) Sodium 138 (135-145) mmol/L Potassium 3.4 L (3.5-5.0) mmol/L Chloride 104 (101-111) mmol/L Carbon Dioxide 18 L (21-32) mmol/L Anion Gap 16.0 H (6-13) BUN 20 (6-20) mg/dL Creatinine 0.9 (0.6-1.2) mg/dL Estimated GFR (MDRD) 89 (>89) Glucose 111 H (70-100) mg/dL Lactic Acid 1.3 (0.5-2.2) mmol/L Calcium 10.0 (8.5-10.3) mg/dL Magnesium 1.9 (1.7-2.8) mg/dL Total Bilirubin 1.8 H (0.2-1.0) mg/dL AST 62 H (10-42) IU/L ALT 96 H (10-60) IU/L Alkaline Phosphatase 69 (42-121) IU/L Total Protein 8.3 H (6.7-8.2) g/dL Albumin 4.7 (3.2-5.5) g/dL Globulin 3.6 (2.1-4.2) g/dL Albumin/Globulin Ratio 1.3 (1.0-2.2) Lipase 53 H (22-51) U/L Urine Opiates Screen POSITIVE H (NEGATIVE) Ur Oxycodone Screen NEGATIVE (NEGATIVE) Urine Methadone Screen NEGATIVE (NEGATIVE) Ur Propoxyphene Screen NEGATIVE (NEGATIVE) Ur Barbiturates Screen NEGATIVE (NEGATIVE) Ur Tricyclics Screen POSITIVE H (NEGATIVE) Ur Phencyclidine Scrn NEGATIVE (NEGATIVE) Ur Amphetamine Screen NEGATIVE (NEGATIVE) U Methamphetamines Scrn NEGATIVE (NEGATIVE) U Benzodiazepines Scrn POSITIVE H (NEGATIVE) Urine Cocaine Screen NEGATIVE (NEGATIVE) U Cannabinoids Screen POSITIVE H (NEGATIVE) 01/02/19 Range/Units 08:40 WBC 10.8 (4.8-10.8) x10^3/uL RBC 6.64 H (4.70-6.10) 10^6/uL Hgb 18.6 H (14.0-18.0) g/dL Hct 55.4 H (42.0-52.0) % MCV 83.4 (80.0-94.0) fL MCH 28.0 (27.0-31.0) pg MCHC 33.6 (32.0-36.0) g/dL RDW 14.6 (12.0-15.0) % Plt Count 350 (130-450) 10^3/uL MPV 7.9 (7.4-11.4) fL Neut # (Auto) 8.0 H (1.5-6.6) 10^3/uL Lymph # (Auto) 2.0 (1.5-3.5) 10^3/uL [facility] # (Auto) 0.6 (0.0-1.0) 10^3/uL Eos # (Auto) 0.1 (0.0-0.7) 10^3/uL Baso # (Auto) 0.2 H (0.0-0.1) 10^3/uL Absolute Nucleated RBC 0.02 x10^3/uL Nucleated RBC % 0.2 /100WBC Manual Slide Review Indicated RBC Morph Micro Appear 1+ ANISOCYTOSIS (NORMAL) Sodium (135-145) mmol/L Potassium (3.5-5.0) mmol/L Chloride (101-111) mmol/L Carbon Dioxide (21-32) mmol/L Anion Gap (6-13) BUN (6-20) mg/dL Creatinine (0.6-1.2) mg/dL Estimated GFR (MDRD) (>89) Glucose (70-100) mg/dL Lactic Acid (0.5-2.2) mmol/L Calcium (8.5-10.3) mg/dL Magnesium (1.7-2.8) mg/dL Total Bilirubin (0.2-1.0) mg/dL AST (10-42) IU/L ALT (10-60) IU/L Alkaline Phosphatase (42-121) IU/L Total Protein (6.7-8.2) g/dL Albumin (3.2-5.5) g/dL Globulin (2.1-4.2) g/dL Albumin/Globulin Ratio (1.0-2.2) Lipase (22-51) U/L Urine Opiates Screen (NEGATIVE) Ur Oxycodone Screen (NEGATIVE) Urine Methadone Screen (NEGATIVE) Ur Propoxyphene Screen (NEGATIVE) Ur Barbiturates Screen (NEGATIVE) Ur Tricyclics Screen (NEGATIVE) Ur Phencyclidine Scrn (NEGATIVE) Ur Amphetamine Screen (NEGATIVE) U Methamphetamines Scrn (NEGATIVE) U Benzodiazepines Scrn (NEGATIVE) Urine Cocaine Screen (NEGATIVE) U Cannabinoids Screen (NEGATIVE) - Diagnostic Imaging Results Diagnostic Imaging Results: positive: Prelim report reviewed Impression/Plan - Problem List Problem List: Diagnoses: Intractable nausea and vomiting Abdominal pain Weakness Elevated LFTs Marijuana induced hyperemesis syndrome Polypharmacy Fatty liver Plan: MRCP, symptom control, evaluate for reduced home dosing upon discharge, and further labs to evaluate liver function, advance diet as tolerated, consider early ileus is no flatus or BM by the AM. Core Measures - Anticipated LOS I expect patient to be DC'd or transferred within 96 hours.: Yes - DVT/VTE - Prophylaxis VTE/DVT Device ordered at admit?: Yes VTE/DVT Prophylaxis med ordered at admit?: Yes - Stroke - Rehab Assessment Rehab services assessment to be ordered?: No Not Ordered - Medical Reason: Contraindicated - AMI - Statin at Admit Aspirin Prescribed on Admit: Yes
[2019-01-02] MEDS ORDERED: LORazepam 1 MG TABLET PO PRN (16:33)
[2019-01-02] MEDS: SODIUM CHLORIDE FLUSH 0.9% 10 ML SYRINGE IVP SCH (17:04)
[2019-01-02] MEDS: SODIUM CHLORIDE 0.9% 1,000 ML IV SCH (17:04)
[2019-01-02] MEDS: HYDROmorphone 1 MG/ML CARPUJECT IVP PRN ×2 (17:08→19:19)
[2019-01-02] MEDS: ONDANSETRON 4 MG/2 ML VIAL IVP PRN ×2 (17:08→21:38)
[2019-01-02] MEDS ORDERED: BUTALB/ACETAM/CAFF 50/325/40MG TABLET PO PRN (17:13)
[2019-01-02] MEDS ORDERED: GADOBUTROL 10 MMOL/10 ML VIAL ONE (17:20)
--- NOTE | 2019-01-02 21:17 | MRI Report ---
Reason: abdominal pain Procedure Date: 01/02/2019 Accession Number: [id number] / [id number] Procedure: MRI - MRCP W/O CPT Code: FULL RESULT: EXAM: MR ABDOMEN WITHOUT CONTRAST EXAM DATE: 01/02/2019 07:00 PM. CLINICAL HISTORY: Abdominal pain. COMPARISON: ABDOMEN/PELVIS W/ 01/02/2019 11:48 AM. TECHNIQUE: Multiplanar T2 weighted sequences obtained through the abdomen on an MR scanner. No intravenous contrast given. FINDINGS: Patient terminated and refused the remainder of the exam after a few sequences. Visualized lung bases are grossly clear. Liver: 1.2 cm likely cyst or hemangioma within the liver. Gallbladder/bile ducts: Common bile duct measures up to 1.2 cm. No evidence for choledocholithiasis. Gallbladder is absent. Pancreas: Visualized pancreas is unremarkable. Pancreatic duct is normal caliber. Spleen: Unremarkable Kidneys: No hydronephrosis. Bowel: No intestinal obstruction of the visualized abdominal bowel. Retroperitoneum: The retroperitoneal structures appear normal with no mass or lymphadenopathy. IMPRESSION: Limited evaluation as the patient could not complete the majority of exam including the MRCP sequences. No evidence for choledocholithiasis in the visualized biliary tree. RADIA
[2019-01-02] MEDS: METOCLOPRAMIDE 10 MG/2 ML VIAL IVP SCH (21:34)
[2019-01-02] MEDS: GI COCKTAIL 120 ML BOTTLE PO PRN (21:46)
[2019-01-02] MEDS: DICYCLOMINE 10 MG CAPSULE PO SCH (22:27)
[2019-01-02] MEDS: QUEtiapine 25 MG TABLET PO SCH (22:27)
[2019-01-02] MEDS: oxyCODONE 5 MG TABLET PO SCH (22:28)
[2019-01-02] MEDS: SUCRALFATE 1 GM/10 ML UDC PO SCH (22:28)
[2019-01-02] MEDS: PREGABALIN 100 MG CAPSULE PO SCH (22:29)
[2019-01-02] MEDS: PREGABALIN 25 MG CAPSULE PO SCH (22:29)
[2019-01-03] MEDS: METOCLOPRAMIDE 10 MG/2 ML VIAL IVP SCH ×5 (01:51→23:38)
[2019-01-03] MEDS: SODIUM CHLORIDE FLUSH 0.9% 10 ML SYRINGE IVP SCH ×3 (01:54→16:18)
[2019-01-03] MEDS: SODIUM CHLORIDE 0.9% 1,000 ML IV SCH ×4 (02:51→23:30)
[2019-01-03] MEDS: GI COCKTAIL 120 ML BOTTLE PO PRN ×3 (07:30→20:19)
[2019-01-03 07:55] LABS: BASOPHILS # (AUTO) 0.1 10^3/uL (0.0-0.1); BASOPHILS % (AUTO) 1.1 %; EOSINOPHILS # (AUTO) 0.2 10^3/uL (0.0-0.7); EOSINOPHILS % (AUTO) 2.7 %; HGB - HEMOGLOBIN 15.3 g/dL (14.0-18.0); LYMPHOCYTES % (AUTO) 23.2 %; MEAN CORPUSCULAR HGB CONC 33.5 g/dL (32.0-36.0); MEAN CORPUSCULAR VOLUME 83.6 fL (80.0-94.0); MEAN PLATELET VOLUME 7.5 fL (7.4-11.4); MONOCYTES # (AUTO) 0.6 10^3/uL (0.0-1.0); MONOCYTES % (AUTO) 6.5 %; NEUTROPHILS # (AUTO) 5.8 10^3/uL (1.5-6.6); NEUTROPHILS % (AUTO) 66.5 %; PLT - PLATELET COUNT 271 10^3/uL (130-450); RED BLOOD COUNT 5.47 10^6/uL (4.70-6.10); RED CELL DISTRIBUTION WIDTH 14.6 % (12.0-15.0); WHITE BLOOD COUNT 8.7 x10^3/uL (4.8-10.8)
[2019-01-03 08:06] LABS: INR 1.2 (0.8-1.2); PT - PROTHROMBIN TIME 13.3 secs (9.9-12.6)
[2019-01-03] MEDS: DRONABINOL 2.5 MG CAPSULE PO SCH ×2 (08:10→16:17)
[2019-01-03] MEDS: SUCRALFATE 1 GM/10 ML UDC PO SCH ×5 (08:10→23:05)
[2019-01-03 08:13] LABS: ALBUMIN/GLOBULIN RATIO 1.5 (1.0-2.2); BILIRUBIN,TOTAL 1.7 mg/dL (0.2-1.0); CALCIUM 8.6 mg/dL (8.5-10.3); CREATININE 0.9 mg/dL (0.6-1.2); MAGNESIUM 1.7 mg/dL (1.7-2.8); PHOSPHORUS 2.4 mg/dL (2.5-4.6); TOTAL PROTEIN 6.6 g/dL (6.7-8.2)
[2019-01-03 08:16] LABS: GAMMA GLUTAMYL TRANSPEPTIDASE 79 IU/L (8-55); LIPASE 82 U/L (22-51)
[2019-01-03 08:22] LABS: HB2 TOTAL 16.6 g/dL; HEMOGLOBIN A1C 0.58 g/dL; HEMOGLOBIN A1C % 5.3 % (4.6-6.2)
[2019-01-03] MEDS: VENLAFAXINE ER 75 MG CAPSULE PO SCH (08:44)
[2019-01-03] MEDS: DICYCLOMINE 10 MG CAPSULE PO SCH ×2 (08:44→20:19)
[2019-01-03] MEDS ORDERED: DEXAMETHASONE 10 MG/ML VIAL IVP ONE (08:44)
[2019-01-03] MEDS: PREGABALIN 25 MG CAPSULE PO SCH ×2 (08:44→20:46)
[2019-01-03] MEDS: CYCLOBENZAPRINE 10 MG TABLET PO SCH (08:45)
[2019-01-03] MEDS: POLYETHYLENE GLYCOL 3350 17 GM PACKET PO SCH (08:45)
[2019-01-03] MEDS: oxyCODONE 5 MG TABLET PO SCH ×2 (08:45→20:47)
[2019-01-03] MEDS: PREGABALIN 100 MG CAPSULE PO SCH ×2 (08:45→20:46)
[2019-01-03 08:53] LABS: CRP - C-REACTIVE PROTEIN < 1.0 mg/dL (0-1.0)
[2019-01-03] MEDS: LACTOBACILLUS RHAMNOSUS GG CAPSULE PO SCH (08:53)
[2019-01-03] MEDS: diphenhydrAMINE INJ 50 MG/ML VIAL IVP PRN (09:45)
[2019-01-03] MEDS: LORazepam 2 MG/ML VIAL IVP PRN ×2 (09:47→11:41)
[2019-01-03] MEDS: ONDANSETRON 4 MG/2 ML VIAL IVP PRN ×2 (09:47→19:48)
[2019-01-03] MEDS: MORPHINE 2 MG/ML SYRINGE IVP PRN ×3 (09:47→16:19)
[2019-01-03] MEDS ORDERED: ACETAMINOPHEN 1,000 MG/100 ML 100 ML IV PRN (14:42)
--- NOTE | 2019-01-03 15:49 | XRAY Report ---
Reason: abdominal pain, evaluate for ileus Procedure Date: 01/03/2019 Accession Number: [id number] / [id number] Procedure: XR - Abdomen 1 View X-Ray CPT Code: 97048 FULL RESULT: EXAM: ABDOMEN RADIOGRAPHY EXAM DATE: 01/03/2019 03:16 PM. CLINICAL HISTORY: Abdominal pain, evaluate for ileus. COMPARISON: None. TECHNIQUE: 1 view. FINDINGS: Bowel Gas Pattern: Within normal limits. No dilated loops. Other: Lung bases appear clear. Clips in the right upper quadrant from prior cholecystectomy. IMPRESSION: Normal 1-view abdomen x-ray. RADIA
--- NOTE | 2019-01-03 16:49 | PROVIDER PROGRESS NOTE ---
Subjective - Prog Note Date Prog Note Date: 01/03/19 Prog Note Time: 12:00 - Subjective Pt reports feeling: No change Subjective: Carson continues to complain of nausea and is witnessed having dry heaves during his exam. He states that he has had life long migraine headaches as well. He denies a rash, chest pain, bleeding, or a new cough. He feels dizzy when getting up to the bathroom. Current Medications - Current Medications Current Medications: Active Medications: Acetaminophen/Butalbital/Caffeine (Fioricet) 1 tab PO Q4HR PRN Cyclobenzaprine HCl (Flexeril) 10 mg PO DAILY RENARD Dexamethasone (Decadron) 10 mg IVP Q6H RENARD Dicyclomine HCl (Bentyl) 10 mg PO BID RENARD Diphenhydramine HCl (Benadryl Inj) 25 mg IVP Q6H PRN Dronabinol (Marinol) 2.5 mg PO BIDAC RENARD Acetaminophen (Ofirmev) 100 mls @ 400 mls/hr IV Q6HR PRN Sodium Chloride (Normal Saline 0.9%) 1,000 mls @ 150 mls/hr IV .Q6H40M RENARD Lactobacillus Rhamnosus (Culturelle) 1 cap PO DAILY RENARD Lorazepam (Ativan Inj (Vial)) 1 mg IVP Q2H PRN Metoclopramide HCl (Reglan Inj) 10 mg IVP Q6HR RENARD Morphine Sulfate (Morphine) 2 mg IVP Q2H PRN Multi-Ingredient Mouthwash/Gargle () 30 ml PO Q4H PRN Ondansetron HCl (Zofran Inj) 4 mg IVP Q4HR PRN Oxycodone HCl (Roxicodone) 10 mg PO BID RENARD Oxymetazoline HCl (Afrin) 2 sprays TRAVIS BID RENARD Polyethylene Glycol (Miralax) 17 gm PO DAILY RENARD Pregabalin (Lyrica) 100 mg PO BID RENARD Pregabalin (Lyrica) 50 mg PO BID RENARD Quetiapine Fumarate (Seroquel) 50 mg PO QPM RENARD Ranitidine HCl (Zantac) 150 mg PO BID RENARD Sucralfate (Carafate) 1 gm PO 0700,1100,1600,2200 RENARD Venlafaxine HCl (Effexor Er) 150 mg PO DAILY RENARD HOME meds: Omeprazole 20 mg PO BID 04/07/15 Cyclobenzaprine [Flexeril] 10 mg PO DAILY 10/16/15 Butalb/Acetaminophen/Caffeine [Fioricet 50-300-40 mg Capsule] 1 tab PO PRN PRN 07/08/16 Pregabalin [Lyrica] 150 mg PO BID 07/08/16 QUEtiapine [SEROquel] 50 mg PO QPM 07/08/16 Dicyclomine HCl 10 mg PO BID 01/02/19 Venlafaxine HCl [Venlafaxine HCl ER] 150 mg PO DAILY 01/02/19 oxyCODONE/ACET 5/325 [Percocet 5 mg/325 mg] 2 tab PO BID 01/02/19 Objective - Vital Signs/Intake & Output Reviewed Vital Signs: Yes Vital Signs: Vital Signs x48h Temp Pulse Pulse Resp BP Pulse Ox 01/03/19 14:00 36.6 C 113 H 16 145/91 H 93 01/03/19 10:56 36.7 C 107 H 14 116/89 H 97 01/03/19 10:54 36.7 C 90 18 97 Intake & Output: Intake & Output 12/31/18 01/01/19 01/02/19 01/03/19 23:59 23:59 23:59 23:59 Intake Total 2150 8.333 Output Total 100 200 Balance 2049 2017.333 - Objective General Appearance: positive: Alert, Moderate distress, Anxious Eyes Bilateral: positive: PERRL Eyes: OU Abnormal pupil (small pupils) ENT: positive: Pharynx nml, Dry mucous membranes Neck: positive: Thyroid nml, No JVD, Trachea midline Respiratory: positive: Chest non-tender, No respiratory distress, Breath sounds nml Cardiovascular: positive: Regular rate & rhythm, No gallop, Tachycardia, Systolic murmur Peripheral Pulses: 1+ Radial (R), 1+ Radial (L) Abdomen: positive: Tenderness, Guarding, Rebound, Hepatomegaly, Abnml bowel sounds Back: positive: Nml inspection Skin: positive: No rash, Warm, Dry, Other (bronze) Extremities: positive: Non-tender, Full ROM, Nml appearance Neurologic/Psychiatric: positive: Oriented x3, CN's nml (2-12), Motor nml, Sensation nml, Slurred/abnml speech, Depressed mood/affect (tearful on exam) Reflexes: Bicep (R): 4+, Bicep (L): 4+ - Lab Results Fish Bones: 01/03/19 07:40 01/03/19 07:40 Other Labs: Lab Results x24hrs 01/03/19 01/03/19 01/03/19 Range/Units 07:40 07:40 07:40 WBC (4.8-10.8) x10^3/uL RBC (4.70-6.10) 10^6/uL Hgb (14.0-18.0) g/dL Hct (42.0-52.0) % MCV (80.0-94.0) fL MCH (27.0-31.0) pg MCHC (32.0-36.0) g/dL RDW (12.0-15.0) % Plt Count (130-450) 10^3/uL MPV (7.4-11.4) fL Neut # (Auto) (1.5-6.6) 10^3/uL Lymph # (Auto) (1.5-3.5) 10^3/uL [place] # (Auto) (0.0-1.0) 10^3/uL Eos # (Auto) (0.0-0.7) 10^3/uL Baso # (Auto) (0.0-0.1) 10^3/uL Absolute Nucleated RBC x10^3/uL Nucleated RBC % /100WBC PT (9.9-12.6) secs INR (0.8-1.2) Sodium (135-145) mmol/L Potassium (3.5-5.0) mmol/L Chloride (101-111) mmol/L Carbon Dioxide (21-32) mmol/L Anion Gap (6-13) BUN (6-20) mg/dL Creatinine (0.6-1.2) mg/dL Estimated GFR (MDRD) (>89) Glucose (70-100) mg/dL Glycated Hemoglobin 5.3 (4.6-6.2) % Estim Average Glucose 105 H (70-100) Lactic Acid (0.5-2.2) mmol/L Calcium (8.5-10.3) mg/dL Phosphorus (2.5-4.6) mg/dL Magnesium (1.7-2.8) mg/dL Total Bilirubin (0.2-1.0) mg/dL GGT (8-55) IU/L AST (10-42) IU/L ALT (10-60) IU/L Alkaline Phosphatase (42-121) IU/L Troponin I (<0.49) ng/mL C-Reactive Protein (0-1.0) mg/dL B-Natriuretic Peptide 38 (5-100) pg/mL Total Protein (6.7-8.2) g/dL Albumin (3.2-5.5) g/dL Globulin (2.1-4.2) g/dL Albumin/Globulin Ratio (1.0-2.2) Lipase (22-51) U/L TSH 3.06 (0.34-5.60) uIU/mL 01/03/19 01/03/19 01/03/19 Range/Units 07:40 07:40 07:40 WBC (4.8-10.8) x10^3/uL RBC (4.70-6.10) 10^6/uL Hgb (14.0-18.0) g/dL Hct (42.0-52.0) % MCV (80.0-94.0) fL MCH (27.0-31.0) pg MCHC (32.0-36.0) g/dL RDW (12.0-15.0) % Plt Count (130-450) 10^3/uL MPV (7.4-11.4) fL Neut # (Auto) (1.5-6.6) 10^3/uL Lymph # (Auto) (1.5-3.5) 10^3/uL [place] # (Auto) (0.0-1.0) 10^3/uL Eos # (Auto) (0.0-0.7) 10^3/uL Baso # (Auto) (0.0-0.1) 10^3/uL Absolute Nucleated RBC x10^3/uL Nucleated RBC % /100WBC PT 13.3 H (9.9-12.6) secs INR 1.2 (0.8-1.2) Sodium (135-145) mmol/L Potassium (3.5-5.0) mmol/L Chloride (101-111) mmol/L Carbon Dioxide (21-32) mmol/L Anion Gap (6-13) BUN (6-20) mg/dL Creatinine (0.6-1.2) mg/dL Estimated GFR (MDRD) (>89) Glucose (70-100) mg/dL Glycated Hemoglobin (4.6-6.2) % Estim Average Glucose (70-100) Lactic Acid (0.5-2.2) mmol/L Calcium (8.5-10.3) mg/dL Phosphorus (2.5-4.6) mg/dL Magnesium (1.7-2.8) mg/dL Total Bilirubin (0.2-1.0) mg/dL GGT 79 H (8-55) IU/L AST (10-42) IU/L ALT (10-60) IU/L Alkaline Phosphatase (42-121) IU/L Troponin I < 0.04 (<0.49) ng/mL C-Reactive Protein < 1.0 (0-1.0) mg/dL B-Natriuretic Peptide (5-100) pg/mL Total Protein (6.7-8.2) g/dL Albumin (3.2-5.5) g/dL Globulin (2.1-4.2) g/dL Albumin/Globulin Ratio (1.0-2.2) Lipase 82 H (22-51) U/L TSH (0.34-5.60) uIU/mL 01/03/19 01/03/19 01/03/19 Range/Units 07:40 07:40 07:40 WBC 8.7 (4.8-10.8) x10^3/uL RBC 5.47 (4.70-6.10) 10^6/uL Hgb 15.3 (14.0-18.0) g/dL Hct 45.7 (42.0-52.0) % MCV 83.6 (80.0-94.0) fL MCH 28.0 (27.0-31.0) pg MCHC 33.5 (32.0-36.0) g/dL RDW 14.6 (12.0-15.0) % Plt Count 271 (130-450) 10^3/uL MPV 7.5 (7.4-11.4) fL Neut # (Auto) 5.8 (1.5-6.6) 10^3/uL Lymph # (Auto) 2.0 (1.5-3.5) 10^3/uL [place] # (Auto) 0.6 (0.0-1.0) 10^3/uL Eos # (Auto) 0.2 (0.0-0.7) 10^3/uL Baso # (Auto) 0.1 (0.0-0.1) 10^3/uL Absolute Nucleated RBC 0.01 x10^3/uL Nucleated RBC % 0.1 /100WBC PT (9.9-12.6) secs INR (0.8-1.2) Sodium 141 (135-145) mmol/L Potassium 3.4 L (3.5-5.0) mmol/L Chloride 105 (101-111) mmol/L Carbon Dioxide 22 (21-32) mmol/L Anion Gap 14.0 H (6-13) BUN 16 (6-20) mg/dL Creatinine 0.9 (0.6-1.2) mg/dL Estimated GFR (MDRD) 89 (>89) Glucose 94 (70-100) mg/dL Glycated Hemoglobin (4.6-6.2) % Estim Average Glucose (70-100) Lactic Acid 0.8 (0.5-2.2) mmol/L Calcium 8.6 (8.5-10.3) mg/dL Phosphorus 2.4 L (2.5-4.6) mg/dL Magnesium 1.7 (1.7-2.8) mg/dL Total Bilirubin 1.7 H (0.2-1.0) mg/dL GGT (8-55) IU/L AST 52 H (10-42) IU/L ALT 77 H (10-60) IU/L Alkaline Phosphatase 54 (42-121) IU/L Troponin I (<0.49) ng/mL C-Reactive Protein (0-1.0) mg/dL B-Natriuretic Peptide (5-100) pg/mL Total Protein 6.6 L (6.7-8.2) g/dL Albumin 4.0 (3.2-5.5) g/dL Globulin 2.6 (2.1-4.2) g/dL Albumin/Globulin Ratio 1.5 (1.0-2.2) Lipase (22-51) U/L TSH (0.34-5.60) uIU/mL ABX Reporting Has patient been on IV antibiotics over the past 48 hours?: No Assessment/Plan - Problem List (1) Cannabis hyperemesis syndrome concurrent with and due to cannabis abuse Impression: - Admits to daily marjiuana use to treat his chronic pain and anxiety Plan: Clear liquids, manage symptoms (2) Migraine headache Impression: - Patient states he has had these since the age of 11 years - Takes several agents at home fiorcet, effexer, etc. Plan: Add 3 doses of dexamethasone for tonight, IV tylenol as needed Qualifiers: Intractability: intractable (3) Abdominal pain Impression: - RUQ pain that has been unchanged - Imaging today shows no ileus, no free air Plan: Continue with bowel rest, manage pain with IV meds Qualifiers: Abdominal location: upper abdomen, unspecified Qualified Code(s): R10.10 - Upper abdominal pain, unspecified (4) Intractable abdominal pain Impression: - Started at least 4 days prior to admission - No BMs since then - Dry heaves, continued nausea Plan: Anti-emetics, control s/s, bowel rest, IV fluids (5) Dehydration Impression: - dry mucous membranes and continued symptoms today - Increased IV fluids from 100 to 150 mL per hour Plan; Continue to monitor, routine labs
[2019-01-03] MEDS: DEXAMETHASONE 10 MG/ML VIAL IVP SCH ×2 (17:32→23:03)
[2019-01-03] MEDS: OXYMETAZOLINE NASAL SPRAY NAS SCH (20:20)
[2019-01-03] MEDS: QUEtiapine 25 MG TABLET PO SCH (20:46)
[2019-01-03] MEDS: FAMOTIDINE 20 MG TABLET PO SCH (23:36)
[2019-01-04] MEDS: SODIUM CHLORIDE FLUSH 0.9% 10 ML SYRINGE IVP SCH ×3 (00:46→16:24)
[2019-01-04] MEDS: SODIUM CHLORIDE 0.9% 1,000 ML IV SCH ×3 (03:34→18:48)
[2019-01-04] MEDS: DEXAMETHASONE 10 MG/ML VIAL IVP SCH (04:35)
[2019-01-04] MEDS: MORPHINE 2 MG/ML SYRINGE IVP PRN ×2 (04:40→16:24)
[2019-01-04 04:50] LABS: BASOPHILS # (AUTO) 0.1 10^3/uL (0.0-0.1); BASOPHILS % (AUTO) 0.6 %; HGB - HEMOGLOBIN 14.4 g/dL (14.0-18.0); LYMPHOCYTES # (AUTO) 0.6 10^3/uL (1.5-3.5); LYMPHOCYTES % (AUTO) 6.4 %; MEAN CORPUSCULAR HEMOGLOBIN 28.2 pg (27.0-31.0); MEAN CORPUSCULAR HGB CONC 33.8 g/dL (32.0-36.0); MEAN CORPUSCULAR VOLUME 83.3 fL (80.0-94.0); MEAN PLATELET VOLUME 7.7 fL (7.4-11.4); MONOCYTES # (AUTO) 0.1 10^3/uL (0.0-1.0); MONOCYTES % (AUTO) 0.7 %; NEUTROPHILS # (AUTO) 8.6 10^3/uL (1.5-6.6); NEUTROPHILS % (AUTO) 92.3 %; PLT - PLATELET COUNT 276 10^3/uL (130-450); RED BLOOD COUNT 5.11 10^6/uL (4.70-6.10); RED CELL DISTRIBUTION WIDTH 14.1 % (12.0-15.0); WHITE BLOOD COUNT 9.3 x10^3/uL (4.8-10.8)
[2019-01-04 04:56] LABS: ALBUMIN/GLOBULIN RATIO 1.3 (1.0-2.2); BILIRUBIN,TOTAL 0.7 mg/dL (0.2-1.0); CALCIUM 8.9 mg/dL (8.5-10.3); CREATININE 0.7 mg/dL (0.6-1.2); MAGNESIUM 1.8 mg/dL (1.7-2.8); PHOSPHORUS 2.5 mg/dL (2.5-4.6)
[2019-01-04] MEDS: DRONABINOL 2.5 MG CAPSULE PO SCH (06:16)
[2019-01-04] MEDS: SUCRALFATE 1 GM/10 ML UDC PO SCH ×4 (06:16→23:05)
[2019-01-04] MEDS: METOCLOPRAMIDE 10 MG/2 ML VIAL IVP SCH ×2 (06:16→12:08)
[2019-01-04] MEDS: ONDANSETRON 4 MG/2 ML VIAL IVP PRN (08:32)
[2019-01-04] MEDS: VENLAFAXINE ER 75 MG CAPSULE PO SCH (10:10)
[2019-01-04] MEDS: CYCLOBENZAPRINE 10 MG TABLET PO SCH (10:12)
[2019-01-04] MEDS: DICYCLOMINE 10 MG CAPSULE PO SCH ×2 (10:12→20:15)
[2019-01-04] MEDS: FAMOTIDINE 20 MG TABLET PO SCH ×2 (10:12→20:15)
[2019-01-04] MEDS: PREGABALIN 100 MG CAPSULE PO SCH (10:13)
[2019-01-04] MEDS: PREGABALIN 25 MG CAPSULE PO SCH (10:13)
[2019-01-04] MEDS: oxyCODONE 5 MG TABLET PO SCH ×2 (10:27→20:15)
[2019-01-04] MEDS: LACTOBACILLUS RHAMNOSUS GG CAPSULE PO SCH (10:28)
[2019-01-04] MEDS: LORazepam 2 MG/ML VIAL IVP PRN (10:28)
[2019-01-04] MEDS: diphenhydrAMINE INJ 50 MG/ML VIAL IVP PRN (10:29)
[2019-01-04] MEDS: POLYETHYLENE GLYCOL 3350 17 GM PACKET PO SCH (10:30)
[2019-01-04] MEDS: OXYMETAZOLINE NASAL SPRAY NAS SCH ×2 (10:30→20:16)
--- NOTE | 2019-01-04 14:53 | PROVIDER PROGRESS NOTE ---
Subjective - Prog Note Date Prog Note Date: 01/04/19 - Subjective Pt reports feeling: No change Subjective: pt still complain of nausea and vomiting, and difficult to eat down the diet. pt also complain of diffused abdominal pain. pt denies abdominal tenderness, denies fever, chill, chest pain, cough, shortness of breath. Current Medications - Current Medications Current Medications: Active Medications Acetaminophen/Butalbital/Caffeine (Fioricet) 1 tab PO Q4HR PRN PRN Reason: MIGRAINE Cyclobenzaprine HCl (Flexeril) 10 mg PO DAILY [facility] Last Admin: 01/04/19 10:12 Dose: Not Given Dicyclomine HCl (Bentyl) 10 mg PO BID [facility] Last Admin: 01/04/19 10:12 Dose: 10 mg Diphenhydramine HCl (Benadryl Inj) 25 mg IVP Q6H PRN PRN Reason: Allergy Symptoms Last Admin: 01/04/19 10:29 Dose: 25 mg Famotidine (Pepcid) 20 mg PO BID [facility] Last Admin: 01/04/19 10:12 Dose: 20 mg Acetaminophen (Ofirmev) 100 mls @ 400 mls/hr IV Q6HR PRN PRN Reason: PAIN Last Infusion: 01/03/19 16:08 Dose: Infused Sodium Chloride (Normal Saline 0.9%) 1,000 mls @ 150 mls/hr IV .Q6H40M [facility] Last Admin: 01/04/19 11:07 Dose: 150 mls/hr Lactobacillus Rhamnosus (Culturelle) 1 cap PO DAILY [facility] Last Admin: 01/04/19 10:28 Dose: 1 cap Lorazepam (Ativan Inj (Vial)) 1 mg IVP Q2H PRN PRN Reason: Anxiety Last Admin: 01/04/19 10:28 Dose: 1 mg Metoclopramide HCl (Reglan Inj) 10 mg IVP Q6HR PRN PRN Reason: Nausea / Vomiting Morphine Sulfate (Morphine) 2 mg IVP Q2H PRN PRN Reason: PAIN Last Admin: 01/04/19 04:40 Dose: 2 mg Multi-Ingredient Mouthwash/Gargle () 30 ml PO Q4H PRN PRN Reason: Abdominal Pain Last Admin: 01/03/19 20:19 Dose: 30 ml Ondansetron HCl (Zofran Inj) 4 mg IVP Q4HR PRN PRN Reason: Nausea / Vomiting Last Admin: 01/04/19 08:32 Dose: 4 mg Oxycodone HCl (Roxicodone) 10 mg PO BID [facility] Last Admin: 01/04/19 10:27 Dose: 10 mg Oxymetazoline HCl (Afrin) 2 sprays TRAVIS BID [facility] Stop: 01/06/19 09:01 Last Admin: 01/04/19 10:30 Dose: Not Given Polyethylene Glycol (Miralax) 17 gm PO DAILY [facility] Last Admin: 01/04/19 10:30 Dose: Not Given Prochlorperazine Edisylate (Compazine Inj) 10 mg IVP Q4HR PRN PRN Reason: Nausea / Vomiting Quetiapine Fumarate (Seroquel) 50 mg PO QPM [facility] Last Admin: 01/03/19 20:46 Dose: 50 mg Ranitidine HCl (Zantac) 150 mg PO BID [facility] Last Admin: 01/04/19 10:30 Dose: Not Given Sodium Chloride (Normal Saline Flush 0.9%) 10 ml IVP PRN PRN PRN Reason: NEEDED PER PROVIDER ORDERS Sodium Chloride (Normal Saline Flush 0.9%) 10 ml IVP 0100,0900,1700 [facility] Last Admin: 01/04/19 10:29 Dose: 10 ml Sucralfate (Carafate) 1 gm PO 0700,1100,1600,2200 [facility] Last Admin: 01/04/19 11:06 Dose: 1 gm Venlafaxine HCl (Effexor Er) 150 mg PO DAILY [facility] Last Admin: 01/04/19 10:10 Dose: 150 mg Omeprazole 20 mg PO BID 04/07/15 Cyclobenzaprine [Flexeril] 10 mg PO DAILY 10/16/15 Butalb/Acetaminophen/Caffeine [Fioricet 50-300-40 mg Capsule] 1 tab PO PRN PRN 07/08/16 Pregabalin [Lyrica] 150 mg PO BID 07/08/16 QUEtiapine [SEROquel] 50 mg PO QPM 07/08/16 Dicyclomine HCl 10 mg PO BID 01/02/19 Venlafaxine HCl [Venlafaxine HCl ER] 150 mg PO DAILY 01/02/19 oxyCODONE/ACET 5/325 [Percocet 5 mg/325 mg] 2 tab PO BID 01/02/19 Objective - Vital Signs/Intake & Output Reviewed Vital Signs: Yes Vital Signs: Vital Signs x48h Temp Pulse Resp BP Pulse Ox 01/04/19 08:09 36.5 C 104 H 16 141/84 H 94 Intake & Output: Intake & Output 01/01/19 01/02/19 01/03/19 01/04/19 23:59 23:59 23:59 23:59 Intake Total 2150 3238.333 2300 Output Total 100 760 Balance 2049 2478.333 2300 - Objective General Appearance: positive: No acute distress, Alert. negative: Lethargic Eyes Bilateral: positive: Normal inspection, PERRL, No lid inflammation, Conjunctivae nml ENT: positive: ENT inspection nml, Pharynx nml, No signs of dehydration. negative: Purulent nasal drainage, Pharyngeal erythema, Oral lesions Neck: positive: Nml inspection, Thyroid nml, No JVD, Trachea midline. negative: Thyromegaly, Lymphadenopathy (R), Lymphadenopathy (L), Stiff neck, Swelling/br uising, Tracheal deviation Respiratory: positive: Chest non-tender, No respiratory distress, Breath sounds nml. negative: Wheezes, Rales, Rhonchi Cardiovascular: positive: Regular rate & rhythm, No murmur, No gallop. negative: Irregularly irregular, Extrasystoles, Tachycardia, Bradycardia, JVD present, Systolic murmur, Diastolic murmur Peripheral Pulses: 2+ Radial (R), 2+ Radial (L), 2+ Dorsalis pedis (R), 2+ Dorsalis pedis (L) Abdomen: positive: Non-tender, No organomegaly, Nml bowel sounds, No distention. negative: Tenderness, Guarding, Rebound Back: positive: Nml inspection. negative: CVA tenderness (R), CVA tenderness (L) Skin: positive: Color nml, No rash, Warm, Dry. negative: Cyanosis, Diaphoresis, Pallor, Skin rash Extremities: positive: Non-tender, Full ROM, Nml appearance. negative: Calf tenderness, Joint swelling, John's sign/cords Neurologic/Psychiatric: positive: Oriented x3, Motor nml, Sensation nml. negative: Weakness, Sensory loss, Facial droop, Slurred/abnml speech, Depressed mood/affect - Lab Results Fish Bones: 01/04/19 04:30 01/04/19 04:30 Other Labs: Lab Results x24hrs 01/04/19 01/04/19 01/04/19 Range/Units 04:30 04:30 04:30 WBC (4.8-10.8) x10^3/uL RBC (4.70-6.10) 10^6/uL Hgb (14.0-18.0) g/dL Hct (42.0-52.0) % MCV (80.0-94.0) fL MCH (27.0-31.0) pg MCHC (32.0-36.0) g/dL RDW (12.0-15.0) % Plt Count (130-450) 10^3/uL MPV (7.4-11.4) fL Neut # (Auto) (1.5-6.6) 10^3/uL Lymph # (Auto) (1.5-3.5) 10^3/uL [place] # (Auto) (0.0-1.0) 10^3/uL Eos # (Auto) (0.0-0.7) 10^3/uL Baso # (Auto) (0.0-0.1) 10^3/uL Absolute Nucleated RBC x10^3/uL Nucleated RBC % /100WBC Sodium 139 (135-145) mmol/L Potassium 3.6 (3.5-5.0) mmol/L Chloride 109 (101-111) mmol/L Carbon Dioxide 20 L (21-32) mmol/L Anion Gap 10.0 (6-13) BUN 14 (6-20) mg/dL Creatinine 0.7 (0.6-1.2) mg/dL Estimated GFR (MDRD) 119 (>89) Glucose 132 H (70-100) mg/dL Lactic Acid 0.8 (0.5-2.2) mmol/L Calcium 8.9 (8.5-10.3) mg/dL Phosphorus 2.5 (2.5-4.6) mg/dL Magnesium 1.8 (1.7-2.8) mg/dL Total Bilirubin 0.7 (0.2-1.0) mg/dL AST 43 H (10-42) IU/L ALT 70 H (10-60) IU/L Alkaline Phosphatase 58 (42-121) IU/L Total Protein 7.0 (6.7-8.2) g/dL Albumin 4.0 (3.2-5.5) g/dL Globulin 3.0 (2.1-4.2) g/dL Albumin/Globulin Ratio 1.3 (1.0-2.2) Carcinoembryonic Ag 0.9 ng/mL 01/04/19 Range/Units 04:30 WBC 9.3 (4.8-10.8) x10^3/uL RBC 5.11 (4.70-6.10) 10^6/uL Hgb 14.4 (14.0-18.0) g/dL Hct 42.6 (42.0-52.0) % MCV 83.3 (80.0-94.0) fL MCH 28.2 (27.0-31.0) pg MCHC 33.8 (32.0-36.0) g/dL RDW 14.1 (12.0-15.0) % Plt Count 276 (130-450) 10^3/uL MPV 7.7 (7.4-11.4) fL Neut # (Auto) 8.6 H (1.5-6.6) 10^3/uL Lymph # (Auto) 0.6 L (1.5-3.5) 10^3/uL [place] # (Auto) 0.1 (0.0-1.0) 10^3/uL Eos # (Auto) 0.0 (0.0-0.7) 10^3/uL Baso # (Auto) 0.1 (0.0-0.1) 10^3/uL Absolute Nucleated RBC 0.01 x10^3/uL Nucleated RBC % 0.1 /100WBC Sodium (135-145) mmol/L Potassium (3.5-5.0) mmol/L Chloride (101-111) mmol/L Carbon Dioxide (21-32) mmol/L Anion Gap (6-13) BUN (6-20) mg/dL Creatinine (0.6-1.2) mg/dL Estimated GFR (MDRD) (>89) Glucose (70-100) mg/dL Lactic Acid (0.5-2.2) mmol/L Calcium (8.5-10.3) mg/dL Phosphorus (2.5-4.6) mg/dL Magnesium (1.7-2.8) mg/dL Total Bilirubin (0.2-1.0) mg/dL AST (10-42) IU/L ALT (10-60) IU/L Alkaline Phosphatase (42-121) IU/L Total Protein (6.7-8.2) g/dL Albumin (3.2-5.5) g/dL Globulin (2.1-4.2) g/dL Albumin/Globulin Ratio (1.0-2.2) Carcinoembryonic Ag ng/mL ABX Reporting Has patient been on IV antibiotics over the past 48 hours?: No Sepsis Event Note (H) - Evaluation Current Stage of Sepsis: Ruled out Assessment/Plan - Problem List (1) Cannabis hyperemesis syndrome concurrent with and due to cannabis abuse Impression: pt still complain of nausea, vomiting and diffused abdominal pain, and can not eat down food UDS reveals positive marijuana, pt state he took high concentration of Marijuana daily and the last he took was two days before all images studies including CT of abdomen, MRCP and Xray were unremarkable pt's abdomen is soft and and has good bowel sound. there is no tenderness continue antiemesis PRN continue IVF continue clear diet, advanced as pt tolerated continue pain control (2) Migraine headache Impression: chronic for many years continue Fiorcet continue Tylenol PRN (3) Intractable Abdominal pain Impression: all images studies including CT of abdomen, MRCP and Xray were unremarkable pt's abdomen is soft and and has good bowel sound. there is no tenderness, rebound pain it seems caused by cannabis hyperemesis syndrome continue pain control continue clear diet, advanced as pt tolerated (4) Dehydration Impression: improved, continue IVF of NS continue lab monitor, vital monitor (5) anxiety and depression chronic problem continue effexor and Seroquel
[2019-01-04] MEDS ORDERED: PROCHLORPERAZINE 10 MG/2 ML VIAL IVP PRN (14:55)
[2019-01-04] MEDS ORDERED: ACETAMINOPHEN 325 MG TABLET PO PRN (15:03)
[2019-01-04] MEDS: METOCLOPRAMIDE 10 MG/2 ML VIAL IVP PRN (16:22)
[2019-01-04] MEDS: QUEtiapine 25 MG TABLET PO SCH (20:17)
[2019-01-05] MEDS: SODIUM CHLORIDE 0.9% 1,000 ML IV SCH ×3 (02:24→19:05)
[2019-01-05] MEDS: SODIUM CHLORIDE FLUSH 0.9% 10 ML SYRINGE IVP SCH ×3 (02:25→15:52)
[2019-01-05] MEDS: LORazepam 2 MG/ML VIAL IVP PRN ×4 (02:31→19:03)
[2019-01-05] MEDS: SUCRALFATE 1 GM/10 ML UDC PO SCH ×4 (06:02→21:41)
[2019-01-05 07:51] LABS: BASOPHILS % (AUTO) 0.3 %; EOSINOPHILS % (AUTO) 0.1 %; HGB - HEMOGLOBIN 14.2 g/dL (14.0-18.0); LYMPHOCYTES # (AUTO) 2.4 10^3/uL (1.5-3.5); LYMPHOCYTES % (AUTO) 20.1 %; MEAN CORPUSCULAR HEMOGLOBIN 27.9 pg (27.0-31.0); MEAN CORPUSCULAR VOLUME 84.6 fL (80.0-94.0); MEAN PLATELET VOLUME 7.5 fL (7.4-11.4); MONOCYTES # (AUTO) 0.6 10^3/uL (0.0-1.0); MONOCYTES % (AUTO) 5.3 %; NEUTROPHILS # (AUTO) 8.8 10^3/uL (1.5-6.6); NEUTROPHILS % (AUTO) 74.2 %; PLT - PLATELET COUNT 284 10^3/uL (130-450); RED CELL DISTRIBUTION WIDTH 14.8 % (12.0-15.0); WHITE BLOOD COUNT 11.9 x10^3/uL (4.8-10.8)
[2019-01-05 08:02] LABS: ALBUMIN 3.8 g/dL (3.2-5.5); ALBUMIN/GLOBULIN RATIO 1.7 (1.0-2.2); BILIRUBIN,TOTAL 0.9 mg/dL (0.2-1.0); CALCIUM 8.7 mg/dL (8.5-10.3); CREATININE 0.8 mg/dL (0.6-1.2); TOTAL PROTEIN 6.1 g/dL (6.7-8.2)
[2019-01-05] MEDS: DICYCLOMINE 10 MG CAPSULE PO SCH ×2 (10:14→21:42)
[2019-01-05] MEDS: LACTOBACILLUS RHAMNOSUS GG CAPSULE PO SCH (10:14)
[2019-01-05] MEDS: VENLAFAXINE ER 75 MG CAPSULE PO SCH (10:15)
[2019-01-05] MEDS: FAMOTIDINE 20 MG TABLET PO SCH ×2 (10:15→21:43)
[2019-01-05] MEDS: CYCLOBENZAPRINE 10 MG TABLET PO SCH (10:15)
[2019-01-05] MEDS: SIMETHICONE CHEW 80 MG TABLET PO SCH ×4 (10:15→21:43)
[2019-01-05] MEDS: oxyCODONE 5 MG TABLET PO SCH ×2 (10:16→21:42)
[2019-01-05] MEDS: POTASSIUM CHLOR 10 MEQ/100 ML 10 MEQ/100 ML BAG IV SCH ×2 (10:19→11:13)
--- NOTE | 2019-01-05 10:19 | XRAY Report ---
Reason: abdominal pain Procedure Date: 01/05/2019 Accession Number: [id number] / [id number] Procedure: XR - Abdomen 2 View X-Ray CPT Code: 30852 FULL RESULT: EXAM: ABDOMEN RADIOGRAPHY EXAM DATE: 01/05/2019 09:53 AM. CLINICAL HISTORY: Abdominal pain. COMPARISON: ABDOMEN 1 VIEW 01/03/2019 2:58 PM. TECHNIQUE: 2 views. FINDINGS: Lung Bases: Unremarkable. Bowel Gas Pattern: Within normal limits. No dilated loops or abnormal fluid levels. Free Air: None. Other: None. IMPRESSION: Normal 2-view abdomen x-ray. RADIA
[2019-01-05] MEDS: POLYETHYLENE GLYCOL 3350 17 GM PACKET PO SCH (10:24)
[2019-01-05] MEDS: OXYMETAZOLINE NASAL SPRAY NAS SCH ×2 (10:24→21:44)
--- NOTE | 2019-01-05 16:05 | PROVIDER PROGRESS NOTE ---
Subjective - Prog Note Date Prog Note Date: 01/05/19 - Subjective Pt reports feeling: Improved Subjective: pt complain stomach fullness and pain. pt also complain he still difficult to eat some and refuse to have diet. pt report his nausea and vomiting is better. pt request advance of his diet to full liquid diet now. Current Medications - Current Medications Current Medications: Active Medications Acetaminophen (Tylenol) 650 mg PO Q4HR PRN PRN Reason: Pain or Fever > 38C (100.4F) Acetaminophen/Butalbital/Caffeine (Fioricet) 1 tab PO Q4HR PRN PRN Reason: MIGRAINE Cyclobenzaprine HCl (Flexeril) 10 mg PO DAILY [facility] Last Admin: 01/05/19 10:15 Dose: 10 mg Dicyclomine HCl (Bentyl) 10 mg PO BID [facility] Last Admin: 01/05/19 10:14 Dose: 10 mg Diphenhydramine HCl (Benadryl Inj) 25 mg IVP Q6H PRN PRN Reason: Allergy Symptoms Last Admin: 01/04/19 10:29 Dose: 25 mg Famotidine (Pepcid) 20 mg PO BID [facility] Last Admin: 01/05/19 10:15 Dose: 20 mg Sodium Chloride (Normal Saline 0.9%) 1,000 mls @ 125 mls/hr IV .Q8H [facility] Last Admin: 01/05/19 10:18 Dose: 125 mls/hr Lactobacillus Rhamnosus (Culturelle) 1 cap PO DAILY [facility] Last Admin: 01/05/19 10:14 Dose: 1 cap Lorazepam (Ativan Inj (Vial)) 1 mg IVP Q2H PRN PRN Reason: Anxiety Last Admin: 01/05/19 15:52 Dose: 1 mg Metoclopramide HCl (Reglan Inj) 10 mg IVP Q6HR PRN PRN Reason: Nausea / Vomiting Last Admin: 01/04/19 16:22 Dose: 10 mg Morphine Sulfate (Morphine) 2 mg IVP Q2H PRN PRN Reason: PAIN Last Admin: 01/04/19 16:24 Dose: 2 mg Multi-Ingredient Mouthwash/Gargle () 30 ml PO Q4H PRN PRN Reason: Abdominal Pain Last Admin: 01/03/19 20:19 Dose: 30 ml Ondansetron HCl (Zofran Inj) 4 mg IVP Q4HR PRN PRN Reason: Nausea / Vomiting Last Admin: 01/04/19 08:32 Dose: 4 mg Oxycodone HCl (Roxicodone) 10 mg PO BID [facility] Last Admin: 01/05/19 10:16 Dose: 10 mg Oxymetazoline HCl (Afrin) 2 sprays TRAVIS BID [facility] Stop: 01/06/19 09:01 Last Admin: 01/05/19 10:24 Dose: Not Given Polyethylene Glycol (Miralax) 17 gm PO DAILY [facility] Last Admin: 01/05/19 10:24 Dose: Not Given Prochlorperazine Edisylate (Compazine Inj) 10 mg IVP Q4HR PRN PRN Reason: Nausea / Vomiting Quetiapine Fumarate (Seroquel) 50 mg PO QPM [facility] Last Admin: 01/04/19 20:17 Dose: 50 mg Ranitidine HCl (Zantac) 150 mg PO BID [facility] Last Admin: 01/05/19 10:16 Dose: 150 mg Simethicone (Mylicon) 80 mg PO 0900,1300,1800,2100 [facility] Last Admin: 01/05/19 12:55 Dose: 80 mg Sodium Chloride (Normal Saline Flush 0.9%) 10 ml IVP PRN PRN PRN Reason: NEEDED PER PROVIDER ORDERS Sodium Chloride (Normal Saline Flush 0.9%) 10 ml IVP 0100,0900,1700 [facility] Last Admin: 01/05/19 15:52 Dose: 10 ml Sucralfate (Carafate) 1 gm PO 0700,1100,1600,2200 [facility] Last Admin: 01/05/19 15:52 Dose: 1 gm Venlafaxine HCl (Effexor Er) 150 mg PO DAILY [facility] Last Admin: 01/05/19 10:15 Dose: 150 mg Omeprazole 20 mg PO BID 04/07/15 Cyclobenzaprine [Flexeril] 10 mg PO DAILY 10/16/15 Butalb/Acetaminophen/Caffeine [Fioricet 50-300-40 mg Capsule] 1 tab PO PRN PRN 07/08/16 Pregabalin [Lyrica] 150 mg PO BID 07/08/16 QUEtiapine [SEROquel] 50 mg PO QPM 07/08/16 Dicyclomine HCl 10 mg PO BID 01/02/19 Venlafaxine HCl [Venlafaxine HCl ER] 150 mg PO DAILY 01/02/19 oxyCODONE/ACET 5/325 [Percocet 5 mg/325 mg] 2 tab PO BID 01/02/19 Objective - Vital Signs/Intake & Output Reviewed Vital Signs: Yes Vital Signs: Vital Signs x48h Temp Pulse Resp BP Pulse Ox 01/05/19 16:00 36.8 C 86 18 135/87 H 96 01/05/19 10:00 36.9 C 89 17 144/83 H 96 Intake & Output: Intake & Output 01/02/19 01/03/19 01/04/19 01/05/19 23:59 23:59 23:59 23:59 Intake Total 2150 3238.333 3590.0 2127.5 Output Total 100 760 280 300 Balance 2050 2478.333 3310.0 1827.5 - Objective General Appearance: positive: No acute distress, Alert. negative: Lethargic Eyes Bilateral: positive: Normal inspection, PERRL, No lid inflammation, Conjunctivae nml ENT: positive: ENT inspection nml, Pharynx nml, No signs of dehydration. negative: Purulent nasal drainage, Pharyngeal erythema, Oral lesions Neck: positive: Nml inspection, Thyroid nml, No JVD, Trachea midline. negative: Thyromegaly, Lymphadenopathy (R), Lymphadenopathy (L), Stiff neck, Swelling/bruising, Tracheal deviation Respiratory: positive: Chest non-tender, No respiratory distress, Breath sounds nml. negative: Wheezes, Rales, Rhonchi Cardiovascular: positive: Regular rate & rhythm, No murmur, No gallop. negative: Irregularly irregular, Extrasystoles, Tachycardia, Bradycardia, JVD present, Systolic murmur, Diastolic murmur Peripheral Pulses: 2+ Radial (R), 2+ Radial (L), 2+ Dorsalis pedis (R), 2+ Dorsalis pedis (L) Abdomen: positive: Non-tender, No organomegaly, Abnml bowel sounds (hyperactive bowel sound). negative: Nml bowel sounds, No distention, Tenderness, Guarding, Rebound Back: positive: Nml inspection. negative: CVA tenderness (R), CVA tenderness (L) Skin: positive: Color nml, No rash, Warm, Dry. negative: Cyanosis, Diaphoresis, Pallor Extremities: positive: Non-tender, Full ROM, Nml appearance. negative: Calf tenderness, Joint swelling, John's sign/cords Neurologic/Psychiatric: positive: Oriented x3, Motor nml, Sensation nml, Mood/affect nml. negative: Weakness, Sensory loss, Facial droop, Slurred/abnml speech, Depressed mood/affect - Lab Results Fish Bones: 01/05/19 07:46 01/05/19 07:46 Other Labs: Lab Results x24hrs 01/05/19 01/05/19 Range/Units 07:46 07:46 WBC 11.9 H (4.8-10.8) x10^3/uL RBC 5.10 (4.70-6.10) 10^6/uL Hgb 14.2 (14.0-18.0) g/dL Hct 43.2 (42.0-52.0) % MCV 84.6 (80.0-94.0) fL MCH 27.9 (27.0-31.0) pg MCHC 33.0 (32.0-36.0) g/dL RDW 14.8 (12.0-15.0) % Plt Count 284 (130-450) 10^3/uL MPV 7.5 (7.4-11.4) fL Neut # (Auto) 8.8 H (1.5-6.6) 10^3/uL Lymph # (Auto) 2.4 (1.5-3.5) 10^3/uL [place] # (Auto) 0.6 (0.0-1.0) 10^3/uL Eos # (Auto) 0.0 (0.0-0.7) 10^3/uL Baso # (Auto) 0.0 (0.0-0.1) 10^3/uL Absolute Nucleated RBC 0.01 x10^3/uL Nucleated RBC % 0.1 /100WBC Sodium 142 (135-145) mmol/L Potassium 3.4 L (3.5-5.0) mmol/L Chloride 109 (101-111) mmol/L Carbon Dioxide 23 (21-32) mmol/L Anion Gap 10.0 (6-13) BUN 15 (6-20) mg/dL Creatinine 0.8 (0.6-1.2) mg/dL Estimated GFR (MDRD) 102 (>89) Glucose 98 (70-100) mg/dL Calcium 8.7 (8.5-10.3) mg/dL Total Bilirubin 0.9 (0.2-1.0) mg/dL AST 41 (10-42) IU/L ALT 58 (10-60) IU/L Alkaline Phosphatase 44 (42-121) IU/L Total Protein 6.1 L (6.7-8.2) g/dL Albumin 3.8 (3.2-5.5) g/dL Globulin 2.3 (2.1-4.2) g/dL Albumin/Globulin Ratio 1.7 (1.0-2.2) ABX Reporting Has patient been on IV antibiotics over the past 48 hours?: No Sepsis Event Note (H) - Evaluation Current Stage of Sepsis: Ruled out Assessment/Plan - Problem List (1) Cannabis hyperemesis syndrome concurrent with and due to cannabis abuse Impression: pt still refused to have diet on morning and lunch. Now he request full liquid diet. 01/05 new Xray of abdomen reveal unremarkable. simethicone seems make pt feel better, and some symptoms released advanced diet to full liquid diet per pt's request continue antiemesis PRN continue pain control pt still complain of nausea, vomiting and diffused abdominal pain, and can not eat down food UDS reveals positive marijuana, pt state he took high concentration of Marijuana daily and the last he took was two days before all images studies including CT of abdomen, MRCP and Xray were unremarkable pt's abdomen is soft and and has good bowel sound. there is no tenderness continue antiemesis PRN continue IVF continue clear diet, advanced as pt tolerated continue pain control (2) Migraine headache Impression: chronic for many years continue Fiorcet continue Tylenol PRN (3) Intractable Abdominal pain Impression: 01/05 pt report he feel little better than yesterday, complain stomach gas and full order simethicone, pt feel better. all images studies including CT of abdomen, MRCP and Xray were unremarkable pt's abdomen is soft and and has good bowel sound. there is no tenderness, rebound pain it seems caused by cannabis hyperemesis syndrome continue pain control continue clear diet, advanced as pt tolerated (4) Dehydration Impression: improved, continue IVF of NS continue lab monitor, vital monitor (5) anxiety and depression chronic problem continue effexor and Seroquel
[2019-01-05] MEDS: QUEtiapine 25 MG TABLET PO SCH (21:43)
[2019-01-06] MEDS: SODIUM CHLORIDE 0.9% 1,000 ML IV SCH ×3 (02:51→10:42)
[2019-01-06] MEDS: SODIUM CHLORIDE FLUSH 0.9% 10 ML SYRINGE IVP SCH ×3 (03:28→15:50)
[2019-01-06] MEDS: SUCRALFATE 1 GM/10 ML UDC PO SCH ×3 (06:23→15:50)
[2019-01-06 06:54] LABS: ALBUMIN/GLOBULIN RATIO 1.7 (1.0-2.2); BILIRUBIN,TOTAL 1.1 mg/dL (0.2-1.0); CREATININE 0.7 mg/dL (0.6-1.2); TOTAL PROTEIN 6.4 g/dL (6.7-8.2)
[2019-01-06 07:01] LABS: CALCIUM 8.5 mg/dL (8.5-10.3)
[2019-01-06] MEDS ORDERED: POTASSIUM CHLOR 10 MEQ/100 ML 10 MEQ/100 ML BAG IV SCH (08:00)
[2019-01-06 09:32] LABS: MEAN CORPUSCULAR HEMOGLOBIN 27.8 pg (27.0-31.0); MEAN CORPUSCULAR HGB CONC 33.1 g/dL (32.0-36.0); MEAN CORPUSCULAR VOLUME 84.1 fL (80.0-94.0); MEAN PLATELET VOLUME 7.5 fL (7.4-11.4); NEUTROPHILS # (AUTO) 7.4 10^3/uL (1.5-6.6); NEUTROPHILS % (AUTO) 74.9 %; RED BLOOD COUNT 5.76 10^6/uL (4.70-6.10); RED CELL DISTRIBUTION WIDTH 14.5 % (12.0-15.0); WHITE BLOOD COUNT 9.9 x10^3/uL (4.8-10.8)
[2019-01-06] MEDS: DICYCLOMINE 10 MG CAPSULE PO SCH (10:28)
[2019-01-06] MEDS: VENLAFAXINE ER 75 MG CAPSULE PO SCH (10:29)
[2019-01-06] MEDS: FAMOTIDINE 20 MG TABLET PO SCH (10:37)
[2019-01-06] MEDS: CYCLOBENZAPRINE 10 MG TABLET PO SCH (10:38)
[2019-01-06] MEDS: OXYMETAZOLINE NASAL SPRAY NAS SCH (10:41)
[2019-01-06] MEDS: POLYETHYLENE GLYCOL 3350 17 GM PACKET PO SCH (10:44)
[2019-01-06] MEDS: METOCLOPRAMIDE 10 MG/2 ML VIAL IVP PRN (10:49)
[2019-01-06] MEDS: LORazepam 2 MG/ML VIAL IVP PRN (11:05)
[2019-01-06] MEDS: oxyCODONE 5 MG TABLET PO SCH (11:07)
[2019-01-06] MEDS: SIMETHICONE CHEW 80 MG TABLET PO SCH ×2 (11:08→13:43)
[2019-01-06] MEDS: LACTOBACILLUS RHAMNOSUS GG CAPSULE PO SCH (11:10)
[2019-01-06] MEDS: POTASSIUM CHLOR 10 MEQ/100 ML 10 MEQ/100 ML BAG IV SCH ×2 (11:11→12:13)
[2019-01-06 15:13] VITALS: BP 143/96
--- NOTE | 2019-01-06 15:15 | DISCHARGE SUMMARY ---
Discharge Summary Discharge Date: 01/06/19 Discharging Provider: KASPER Primary Care Provider: Dr. Nicolas Condition at Discharge: Poor Discharge Disposition: 02 Transfer Acute Care Hosp Discharge [facility] Name: [facility] - DIAGNOSES Admission Diagnoses: Intractable nausea and vomiting Abdominal pain Weakness Elevated LFTs Marijuana induced hyperemesis syndrome Polypharmacy Fatty liver Discharge Diagnoses with Status of Each Condition: (1) Cannabis hyperemesis syndrome concurrent with and due to cannabis abuse (2) Migraine headache (3) Intractable Abdominal pain (4) Dehydration (5) anxiety and depression (6) dysphagia - HPI History of Present Illness: refer from Ms. Henson's HPI on 01/02/19 as the following: Carson Tanner is a 48-year old male with a past medical history of hy pertension, hyperlipidemia, angina, fibromyalgia, GERD, hiatal hernia, tooth decay, external hemorrhoids, anal fissures, insomnia, depression, anxiety, chronic pain syndrome, GI bleeding, PTSD, substance abuse, tobacco dependence, marijuana dependence, several ENT surgeries as a child, mild hearing loss, chronic vision loss, and status post hernia repair several years ago. He came to the ED today accompanied by his with a 4 day history of abdominal pain, nausea, vomiting, and diarrhea. He states that he could not tolerate any food or liquids for the past 4 days. On my exam, the patient complained of ongoing RUQ, umbilical pain that is intermittent, has "creepy crawling" to his skin, body aches, hiccups, dizziness, weakness, and has recently run out of Lyrica. The patient admits to taking repeated doses of pain medications in order to remain comfortable at home, but on a review of his home medications he takes a polypharmacy including; dicyclomine, seroquel, venlafaxine, oxycodone/APAP, fioricet, pregabalin, lorazepam, and flexeril. In the ED several modalities were attempted including, Dilaudid, ketamine, and Ativan, but the patient continued to have uncontrolled pain. Imaging showed some dilation of the common bile duct. Labs showed a WBC count of 10.8, elevated H/H at 18.6/55.4, MCV of 83.4, neut # 8.0, potassium of 3.4, glucose 111, lactic acid 1.3, bili 1.8, AST 62, ALT 96, lipase 53, with no other abnormalities. He will be admitted to observation for pain control, MRCP, treated for suspected marijuana induced hyperemesis syndrome using scheduled Reglan, antiemetics. - HOSPITAL COURSE Hospital Course: 1) Cannabis hyperemesis syndrome concurrent with and due to cannabis abuse pt still complain of N/V and diffused abdominal pain, and he can not eat any thing. Pt and his refused to have temporarily TPN. CT of abdomen, MRCP(pt did not finish the whole study, because he can not tolerate the test), Xray of abdomen all are unremarkable pt and his request high level of care, specially has GI speciality care. pt is transferred to [facility], GI and hospitalist for high level of care (2) Migraine headache better, chronic (3) Intractable Abdominal pain pt still complain of diffused whole abdominal pain. but pt state when he sleep, then his pain is running away but pain come back when he sit up. Pt had good bowel sound and soft bowel, all image studies as far are unremarkable. UDS reveals positive Cannabis (4) Dehydration resolved (5) anxiety and depression chronic, pt is prescribed Ativan plus his home meds (6) dysphagia pt complain dysphagia today, unfortunately our hospital can not have barrium swallow study in weekend and no ST at weekend. pt is transferred to [facility] for further study. - ALLERGIES Allergies/Adverse Reactions: Allergies Allergy/AdvReac Type Severity Reaction Status Date / Time codeine Allergy Severe Nausea Verified 01/02/19 07:48 ketamine AdvReac Hallucinati Verified 01/02/19 12:17 ons meperidine HCl * AdvReac Headache Verified 01/02/19 07:48 [From Demerol] mirtazapine AdvReac Headache Verified 01/02/19 07:48 - MEDICATIONS Home Medications: Ambulatory Orders Medication Instructions Recorded Confirmed Omeprazole 20 mg PO BID 04/07/15 01/02/19 Cyclobenzaprine [Flexeril] 10 mg PO DAILY 10/16/15 01/02/19 Sucralfate 1 gm PO ACHS #120 tablet 10/31/15 01/02/19 raNITIdine [Zantac] 150 mg PO BID #60 tablet 10/31/15 01/02/19 Butalb/Acetaminophen/Caffeine 1 tab PO PRN PRN 07/08/16 01/02/19 [Fioricet 50-300-40 mg Capsule] Pregabalin [Lyrica] 150 mg PO BID 07/08/16 01/02/19 QUEtiapine [SEROquel] 50 mg PO QPM 07/08/16 01/02/19 Lorazepam [Ativan] 1 mg PO TID PRN #7 tablet 12/31/18 01/02/19 Dicyclomine HCl 10 mg PO BID 01/02/19 01/02/19 Venlafaxine HCl [Venlafaxine HCl 150 mg PO DAILY 01/02/19 01/02/19 ER] oxyCODONE/ACET 5/325 [Percocet 5 2 tab PO BID 01/02/19 01/02/19 mg/325 mg] - PHYSICAL EXAM AT DISCHARGE General Appearance: positive: Alert, Mild distress. negative: Lethargic Eyes Bilateral: positive: Normal inspection, PERRL, No lid inflammation, Conjunctivae nml ENT: positive: ENT inspection nml, Pharynx nml, No signs of dehydration. negative: Purulent nasal drainage, Pharyngeal erythema, Oral lesions Neck: positive: Nml inspection, Thyroid nml, No JVD, Trachea midline. negative: Thyromegaly, Lymphadenopathy (R), Lymphadenopathy (L), Stiff neck, Swelling/bruising, Tracheal deviation Respiratory: positive: Chest non-tender, No respiratory distress, Breath sounds nml. negative: Wheezes, Rales, Rhonchi Cardiovascular: positive: Regular rate & rhythm, No murmur, No gallop. neg ative: Irregularly irregular, Extrasystoles, Tachycardia, Bradycardia, JVD present, Systolic murmur, Diastolic murmur Peripheral Pulses: positive: 2+ Abdomen: positive: Non-tender, No organomegaly, Nml bowel sounds, No distention. negative: Tenderness, Guarding, Rebound Back: positive: Nml inspection. negative: CVA tenderness (R), CVA tenderness (L) Skin: positive: Color nml, No rash, Warm, Dry. negative: Cyanosis, Diaphoresis, Pallor, Skin rash Extremities: positive: Non-tender, Full ROM, Nml appearance. negative: Calf tenderness, Joint swelling, John's sign/cords Neurologic/Psychiatric: positive: Sensation nml, Mood/affect nml. negative: Weakness, Sensory loss, Facial droop, Slurred/abnml speech, Depressed mood/affect - LABS Result Diagrams: 01/06/19 09:25 01/06/19 05:25 - SEPSIS Current Stage of Sepsis: Ruled out - FOLLOW UP Follow Up: transferred to [facility] for high level of care - TIME SPENT Time Spent in Discharge (Minutes): 60
[2019-01-06] MEDS: MORPHINE 2 MG/ML SYRINGE IVP PRN (15:45)
== END 2019-01-06 16:28 | disposition short-term general hospital (02) | DRG 897 ==
LOC: ED 07:39 → MS3 14:17 → OBSVTOIN 01-03 14:41
PROVIDERS: ADMIT Nurse Practitioner; ATTEND Nurse Practitioner Gerontology
DX: R10.11 Right upper quadrant pain (principal); R11.14 Bilious vomiting; F12.288 Cannabis dependence with other cannabis-induced disorder; R74.8 Abnormal levels of other serum enzymes; R19.7 Diarrhea, unspecified; R53.1 Weakness; G43.919 Migraine, unspecified, intractable, without status migrainosus; R10.84 Generalized abdominal pain; Y92.019 Unspecified place in single-family (private) house as the place of occurrence of the external cause; E86.0 Dehydration; F41.9 Anxiety disorder, unspecified; R45.1 Restlessness and agitation; T41.295A Adverse effect of other general anesthetics, initial encounter; Y92.238 Other place in hospital as the place of occurrence of the external cause; F32.9 Major depressive disorder, single episode, unspecified; R13.10 Dysphagia, unspecified; K76.0 Fatty (change of) liver, not elsewhere classified; M54.9 Dorsalgia, unspecified; I10 Essential (primary) hypertension; E78.5 Hyperlipidemia, unspecified; I20.9 Angina pectoris, unspecified; M79.7 Fibromyalgia; K21.9 Gastro-esophageal reflux disease without esophagitis; K83.8 Other specified diseases of biliary tract; G43.909 Migraine, unspecified, not intractable, without status migrainosus; G62.9 Polyneuropathy, unspecified; K44.9 Diaphragmatic hernia without obstruction or gangrene; F12.20 Cannabis dependence, uncomplicated; R06.02 Shortness of breath; Z90.49 Acquired absence of other specified parts of digestive tract; G47.00 Insomnia, unspecified; F43.10 Post-traumatic stress disorder, unspecified; G89.4 Chronic pain syndrome; T42.6X6A Underdosing of other antiepileptic and sedative-hypnotic drugs, initial encounter; Z91.138 Patient's unintentional underdosing of medication regimen for other reason; Z87.19 Personal history of other diseases of the digestive system; Z87.891 Personal history of nicotine dependence; Z79.899 Other long term (current) drug therapy; Z79.891 Long term (current) use of opiate analgesic
CPT/HCPCS: 36415; 74018; 74019; 74177; 74181; 80053; 82378; 82977; 83036; 83605; 83690; 83735; 83880; 84100; 84443; 84484; 85025; 85027; 85610; 86140; 96361; 96374; 96375; 96376; 99284; A9270; A9585; G0378; J0131; J1170; J1200; J2060; J2270; J2765; Q0167; Q9967; 80306

== ENCOUNTER 2019-03-10 13:17 | Emergency (ER) | payer MEDICARE, MEDICAID ==
[2019-03-10 13:31] VITALS: BP 139/95
[2019-03-10] MEDS ORDERED: LIDOCAINE 1% 2 ML VIAL SUBQ STA (13:46)
[2019-03-10] MEDS ORDERED: TETANUS/DIPHTHERIA/PERTUSSIS 0.5 ML SYRINGE IM ONE (13:47)
--- NOTE | 2019-03-10 13:47 | ED Physician Documentation ---
PD HPI UPPER EXT INJURY - Stated complaint Stated Complaint: R HAND LAC - Chief complaint Chief Complaint: Ext Problem - History obtained from History obtained from: Patient - History of Present Illness Location: Right, Hand (base of index finger laceation) Type of injury: Laceration Where injury occurred: Home Timing - onset: How many hours ago (1) Timing - duration: Hours (1) Timing - details: Abrupt onset Pain level max: 2 Pain level now: 1 Improved by: Rest Worsened by: Moving, Palpating Associated symptoms: No: Weakness, Numbness, Tingling, Swelling Contributing factors: No: Anticoagulated, Prior ortho surgery Similar symptoms before: Has not had sx before Recently seen: Not recently seen - Additonal information Additional information: Patient is left-handed. He was using a knife to clean out a screen track when it slipped cutting his right hand. Review of Systems Constitutional: denies: Fever GI: denies: Nausea, Vomiting Neurologic: denies: Focal weakness, Numbness PD PAST MEDICAL HISTORY - Past Medical History Cardiovascular: Hypertension, High cholesterol, Peripheral Vascular Disease, Murmur Respiratory: COPD Neuro: Headaches, Migraines, Peripheral neuropathy, Tremors Endocrine/Autoimmune: None GI: GERD, GI bleed, Hemorrhoids : Renal insuffiency, Nocturia HEENT: Chronic vision loss, Chronic sinusitis, Chronic hearing loss Psych: Depression, Anxiety, Post traumatic stress disorder Musculoskeletal: Fibromyalgia, Fatigue, Chronic back pain Derm: None - Past Surgical History Past Surgical History: Yes General: Cholecystectomy, Colonoscopy, EGD HEENT: Myringotomy (tubes), Tonsil/Adenoidectomy - Present Medications Home Medications: Ambulatory Orders Medication Instructions Recorded Confirmed Omeprazole 20 mg PO BID 04/07/15 01/02/19 Cyclobenzaprine [Flexeril] 10 mg PO DAILY 10/16/15 01/02/19 Sucralfate 1 gm PO ACHS #120 tablet 10/31/15 01/02/19 raNITIdine [Zantac] 150 mg PO BID #60 tablet 10/31/15 01/02/19 Butalb/Acetaminophen/Caffeine 1 tab PO PRN PRN 07/08/16 01/02/19 [Fioricet 50-300-40 mg Capsule] Pregabalin [Lyrica] 150 mg PO BID 07/08/16 01/02/19 QUEtiapine [SEROquel] 50 mg PO QPM 07/08/16 01/02/19 Lorazepam [Ativan] 1 mg PO TID PRN #7 tablet 12/31/18 01/02/19 Dicyclomine HCl 10 mg PO BID 01/02/19 01/02/19 Venlafaxine HCl [Venlafaxine HCl 150 mg PO DAILY 01/02/19 01/02/19 ER] oxyCODONE/ACET 5/325 [Percocet 5 2 tab PO BID 01/02/19 01/02/19 mg/325 mg] - Allergies Allergies/Adverse Reactions: Allergies Allergy/AdvReac Type Severity Reaction Status Date / Time codeine Allergy Severe Nausea Verified 03/10/19 13:24 ketamine AdvReac Hallucinati Verified 03/10/19 13:24 ons meperidine HCl * AdvReac Headache Verified 03/10/19 13:24 [From Demerol] mirtazapine AdvReac Headache Verified 03/10/19 13:24 - Social History Does the pt smoke?: Yes Smoking Status: Current every day smoker (daily marijuana use) Does the pt drink ETOH?: Yes Does the pt have substance abuse?: Yes - Immunizations Immunizations are current?: Yes - POLST Patient has POLST: No POLST Status: Full Code PD ED PE NORMAL - Vitals Vital signs reviewed: Yes - General General: Alert and oriented X 3, No acute distress - HEENT HEENT: Moist mucous membranes - Neck Neck: Supple, no meningeal sign - Cardiac Cardiac: RRR - Respiratory Respiratory: No respiratory distress, Clear bilaterally - Derm Derm: Warm and dry - Neuro Neuro: Alert and oriented X 3 PD ED PE EXPANDED - Extremities FABRICIO UE/Hands Visual: 1 - laceration Results - Vitals Vitals: Oxygen O2 Source Room air Procedures - Laceration (location) R hand Length in cm: 2 Wound type: Linear, Into subcut fat, Clean Neurovascular status: Sensory intact, Motor intact, Vascular intact Tendon involvement: Tendon intact. No: Tendon Injury Anesthesia: Lidocaine 2% Wound Preparation: Irrigated copiously NS Skin layer closure: Nylon, Size #-0 - enter number (4) Other: Patient tolerated well, No complications, Neurovascular intact, Dressing applied, Tetanus booster given (tdap) Complexity: Simple PD MEDICAL DECISION MAKING - ED course Complexity details: considered differential, d/w patient ED course: 48-year-old male with a laceration to the right hand. Repaired. Tolerated well. No tendon injury. Neurovascular intact. Warnings of infection and instructions on wound care given at bedside. Also counseled on how to minimize scarring. Tdap given patient counseled regarding signs and symptoms for which I believe and urgent re-evaluation would be necessary. Patient with good understanding of and agreement to plan and is comfortable going home at this time This document was made in part using voice recognition software. While efforts are made to proofread this document, sound alike and grammatical errors may occur. Departure - Departure Disposition: 01 Home, Self Care Clinical Impression: Laceration of right hand Qualifiers: Encounter type: initial encounter Foreign body presence: without foreign body Qualified Code(s): S61.411A - Laceration without foreign body of right hand, initial encounter Condition: Good Instructions: ED Laceration Hand Follow-Up: your,doctor in 10-14 days [Other] Comments: Follow-up with your doctor in 10 to 14 days for suture removal. Return if you worsen. Keep the wound clean. Return for redness, swelling or drainage from the wound. Discharge Date/Time: 03/10/19 14:45
[2019-03-10] MEDS ORDERED: BACITRACIN OINT TOP ONE (14:37)
== END 2019-03-10 14:45 | disposition home or self-care (01) ==
LOC: ED 13:17
DX: S61.411A Laceration without foreign body of right hand, initial encounter (principal); W26.0XXA Contact with knife, initial encounter; Y93.89 Activity, other specified; Y92.009 Unspecified place in unspecified non-institutional (private) residence as the place of occurrence of the external cause; Z23 Encounter for immunization; I10 Essential (primary) hypertension; F17.200 Nicotine dependence, unspecified, uncomplicated
CPT/HCPCS: 12001; 90471; 90715; 99282; 99283; A9270

== ENCOUNTER 2019-04-10 06:51 | Outpatient (CLI) | payer MEDICARE, MEDICAID | END 2019-04-10 06:52 | disposition home or self-care (01) | LOC: LAB 06:51 | PROVIDERS: ATTEND Family Medicine | DX: N52.9 Male erectile dysfunction, unspecified (principal) | CPT/HCPCS: 36415; 81599; 84402; 84403 ==

== ENCOUNTER 2019-05-06 11:04 | Emergency (ER) | payer MEDICARE, MEDICAID ==
[2019-05-06 11:34] LABS: BASOPHILS # (AUTO) 0.1 10^3/uL (0.0-0.1); BASOPHILS % (AUTO) 0.9 %; EOSINOPHILS # (AUTO) 0.4 10^3/uL (0.0-0.7); EOSINOPHILS % (AUTO) 3.8 %; HGB - HEMOGLOBIN 18.7 g/dL (14.0-18.0); LYMPHOCYTES % (AUTO) 18.2 %; MEAN CORPUSCULAR HEMOGLOBIN 28.9 pg (27.0-31.0); MEAN CORPUSCULAR HGB CONC 34.6 g/dL (32.0-36.0); MEAN CORPUSCULAR VOLUME 83.3 fL (80.0-94.0); MEAN PLATELET VOLUME 9.1 fL (7.4-11.4); MONOCYTES # (AUTO) 0.6 10^3/uL (0.0-1.0); MONOCYTES % (AUTO) 5.3 %; NEUTROPHILS # (AUTO) 7.8 10^3/uL (1.5-6.6); NEUTROPHILS % (AUTO) 71.3 %; PLT - PLATELET COUNT 431 10^3/uL (130-450); RED BLOOD COUNT 6.48 10^6/uL (4.70-6.10); RED CELL DISTRIBUTION WIDTH 14.4 % (12.0-15.0); WHITE BLOOD COUNT 10.9 x10^3/uL (4.8-10.8)
[2019-05-06 11:49] LABS: ALBUMIN 5.2 g/dL (3.2-5.5); ALBUMIN/GLOBULIN RATIO 1.6 (1.0-2.2); BILIRUBIN,TOTAL 1.7 mg/dL (0.2-1.0); CALCIUM 9.8 mg/dL (8.5-10.3); CREATININE 0.9 mg/dL (0.6-1.2); TOTAL PROTEIN 8.4 g/dL (6.7-8.2)
[2019-05-06] MEDS ORDERED: SODIUM CHLORIDE 0.9% 1,000 ML IV ONE ×3 (12:15→12:29)
[2019-05-06] MEDS ORDERED: HALOPERIDOL 5 MG/ML VIAL IVP STA (12:29)
[2019-05-06] MEDS ORDERED: diphenhydrAMINE INJ 50 MG/ML VIAL IVP STA ×2 (12:29→13:13)
[2019-05-06] MEDS ORDERED: HYDROmorphone 1 MG/ML CARPUJECT IVP STA (12:29)
[2019-05-06] MEDS ORDERED: ONDANSETRON 4 MG/2 ML VIAL IVP STA (12:29)
--- NOTE | 2019-05-06 12:32 | ED Physician Documentation ---
History of Present Illness - Stated complaint Stated Complaint: ABD PX - Chief complaint Chief Complaint: Abd Pain - History obtained from History obtained from: Patient, Family - History of Present Illness Timing: How many days ago (3) Pain level max: 8 Pain level now: 8 - Additonal information Additional information: 48-year-old male presents to the emergency department with vomiting and diarrhea for the past 3 days. Also has a headache. Worse with light and sound. Nothing makes it better. Has been unable to take his Percocet for the past 3 days. No fevers. No travel. No recent antibiotics. Has been around people with similar symptoms. He does smoke marijuana daily. Abdominal pain is diffuse and crampy. Review of Systems Ten Systems: 10 systems reviewed and negative Constitutional: denies: Fever, Chills Ears: denies: Ear pain Nose: denies: Rhinorrhea / runny nose, Congestion Throat: denies: Sore throat Cardiac: denies: Chest pain / pressure Respiratory: denies: Cough GI: reports: Abdominal Pain, Nausea, Vomiting, Diarrhea Skin: denies: Rash Musculoskeletal: denies: Neck pain, Back pain Neurologic: reports: Headache (migraines, similar to usual migraine). denies: Focal weakness, Numbness, Confused, Altered mental status PD PAST MEDICAL HISTORY - Past Medical History Cardiovascular: Hypertension, High cholesterol, Peripheral Vascular Disease, Murmur Respiratory: COPD Neuro: Headaches, Migraines, Peripheral neuropathy, Tremors Endocrine/Autoimmune: None GI: GERD, GI bleed, Hemorrhoids : Renal insuffiency, Nocturia HEENT: Chronic vision loss, Chronic sinusitis, Chronic hearing loss Psych: Depression, Anxiety, Post traumatic stress disorder Musculoskeletal: Fibromyalgia, Fatigue, Chronic back pain Derm: None - Past Surgical History Past Surgical History: Yes General: Cholecystectomy, Colonoscopy, EGD HEENT: Myringotomy (tubes), Tonsil/Adenoidectomy - Present Medications Home Medications: Ambulatory Orders Medication Instructions Recorded Confirmed Omeprazole 20 mg PO BID 04/07/15 01/02/19 Cyclobenzaprine [Flexeril] 10 mg PO DAILY 10/16/15 01/02/19 Sucralfate 1 gm PO ACHS #120 tablet 10/31/15 01/02/19 raNITIdine [Zantac] 150 mg PO BID #60 tablet 10/31/15 01/02/19 Butalb/Acetaminophen/Caffeine 1 tab PO PRN PRN 07/08/16 01/02/19 [Fioricet 50-300-40 mg Capsule] Pregabalin [Lyrica] 150 mg PO BID 07/08/16 01/02/19 QUEtiapine [SEROquel] 50 mg PO QPM 07/08/16 01/02/19 Lorazepam [Ativan] 1 mg PO TID PRN #7 tablet 12/31/18 01/02/19 Dicyclomine HCl 10 mg PO BID 01/02/19 01/02/19 Venlafaxine HCl [Venlafaxine HCl 150 mg PO DAILY 01/02/19 01/02/19 ER] oxyCODONE/ACET 5/325 [Percocet 5 2 tab PO BID 01/02/19 01/02/19 mg/325 mg] Ondansetron Odt [Zofran] 4 mg TL Q6H PRN #10 tablet 05/06/19 - Allergies Allergies/Adverse Reactions: Allergies Allergy/AdvReac Type Severity Reaction Status Date / Time codeine Allergy Severe Nausea Verified 03/10/19 13:24 ketamine AdvReac Hallucinati Verified 03/10/19 13:24 ons meperidine HCl * AdvReac Headache Verified 03/10/19 13:24 [From Demerol] mirtazapine AdvReac Headache Verified 03/10/19 13:24 - Social History Does the pt smoke?: Yes Smoking Status: Current every day smoker Does the pt drink ETOH?: Yes Does the pt have substance abuse?: Yes - Immunizations Immunizations are current?: Yes - POLST Patient has POLST: No POLST Status: Full Code PD ED PE NORMAL - Vitals Vital signs reviewed: Yes - General General: Alert and oriented X 3, Well developed/nourished, Other (Darkened room with a towel over his eyes) - HEENT HEENT: Atraumatic, PERRL, EOMI, Moist mucous membranes, Pharynx benign, Dentition benign - Neck Neck: Supple, no meningeal sign, No bony TTP - Cardiac Cardiac: RRR, Strong equal pulses - Respiratory Respiratory: No respiratory distress, Clear bilaterally - Abdomen Abdomen: Normal bowel sounds, Soft, Non distended, Other (Mild diffuse tenderness palpation without peritoneal signs) - Back Back: No CVA TTP - Derm Derm: Warm and dry - Extremities Extremities: No edema - Neuro Neuro: Alert and oriented X 3 - Psych Psych: Normal mood, Normal affect Results - Vitals Vitals: Vital Signs - 24 hr 05/06/19 05/06/19 11:14 13:18 Temperature 36.4 C L Heart Rate 55 L 98 Respiratory 18 20 Rate Blood Pressure 169/100 H 144/93 H O2 Saturation 100 98 Oxygen O2 Source Room air - Labs Labs: Laboratory Tests 05/06/19 05/06/19 11:25 11:25 WBC 10.9 H RBC 6.48 H Hgb 18.7 H Hct 54.0 H MCV 83.3 MCH 28.9 MCHC 34.6 RDW 14.4 Plt Count 431 MPV 9.1 Neut # (Auto) 7.8 H Lymph # (Auto) 2.0 [place] # (Auto) 0.6 Eos # (Auto) 0.4 Baso # (Auto) 0.1 Absolute Nucleated RBC 0.00 Nucleated RBC % 0.0 Sodium 139 Potassium 3.4 L Chloride 104 Carbon Dioxide 17 L Anion Gap 18.0 H BUN 18 Creatinine 0.9 Estimated GFR (MDRD) 89 Glucose 127 H Calcium 9.8 Total Bilirubin 1.7 H AST 58 H ALT 85 H Alkaline Phosphatase 72 Total Protein 8.4 H Albumin 5.2 Globulin 3.2 Albumin/Globulin Ratio 1.6 Lipase 44 PD MEDICAL DECISION MAKING - ED course Complexity details: reviewed results, re-evaluated patient, considered differential, d/w patient, d/w family ED course: 48-year-old male presents to the emergency department with narcotic withdrawal, likely cannabinoid induced hyperemesis and possible viral gastroenteritis. Given IV fluids as well as haloperidol, Benadryl and Dilaudid. Symptoms resolved. Tolerating p.o. without difficulty. Lab abnormalities are consistent with his vomiting and dehydration. Feels much better would like to go home at this time. Patient counseled regarding signs and symptoms for which I believe and urgent re-evaluation would be necessary. Patient with good understanding of and agreement to plan and is comfortable going home at this time This document was made in part using voice recognition software. While efforts are made to proofread this document, sound alike and grammatical errors may occur. Departure - Departure Disposition: 01 Home, Self Care Clinical Impression: Viral gastroenteritis, Cannabinoid hyperemesis syndrome, Narcotic withdrawal Condition: Good Instructions: ED Gastroenteritis Viral Follow-Up: BRETT TAM MD [Primary Care Provider] - Within 1 week Prescriptions: Ondansetron Odt [Zofran] 4 mg TL Q6H PRN #10 tablet PRN Reason: Nausea / Vomiting Comments: Drink plenty of fluids and rest. This may be related to your cannabis use. Re turn if you worsen. Go home and rest. Warm showers may help as well.
[2019-05-06 13:19] VITALS: BP 144/93
== END 2019-05-06 13:45 | disposition home or self-care (01) ==
LOC: ED 11:04
DX: A08.4 Viral intestinal infection, unspecified (principal); T40.7X1A Poisoning by cannabis (derivatives), accidental (unintentional), initial encounter; R11.2 Nausea with vomiting, unspecified; F12.188 Cannabis abuse with other cannabis-induced disorder; F11.23 Opioid dependence with withdrawal; R51 Headache; E86.0 Dehydration; I10 Essential (primary) hypertension; F17.200 Nicotine dependence, unspecified, uncomplicated; Z86.69 Personal history of other diseases of the nervous system and sense organs
CPT/HCPCS: 36415; 80053; 83690; 85025; 96361; 96374; 96375; 99284; 99285; J1170; J1200

== ENCOUNTER 2019-06-19 09:07 | Outpatient (CLI) | payer MEDICAID ==
--- NOTE | 2019-06-19 14:36 | Nuclear Medicine Report ---
Reason: CONSTIPATION DRUG INDUCED, ABD PAIN, NAUSEA W/VOMI Procedure Date: 06/19/2019 Accession Number: [id number] / [id number] Procedure: NM - Gastric Empty Small Bowel CPT Code: FULL RESULT: EXAM: GASTRIC EMPTYING STUDY EXAM DATE: 06/19/2019 02:08 PM. CLINICAL HISTORY: CONSTIPATION DRUG INDUCED, ABD PAIN, NAUSEA W/VOMI. COMPARISON: None. TECHNIQUE: A standard meal was radiolabeled with 1 mCi Tc-99m sulfur colloid according to protocol. Following the p.o. administration of this meal, the patient underwent multiple static images over the abdomen from the anterior and posterior projections, at approximately 0, 1, 2, 3, and 4 hours following the ingestion of the meal. Region of interest analysis was employed, and percent emptied/percent remaining of the meal was calculated using both the geometric mean and decay corrections. FINDINGS: Calculations demonstrate: TIME (hours) Percent remaining. Normal values for percent remaining. 1 hour: 38.2% (30-90%) 2 hours: 18.6% (0-60%) 3 hours: 16% (0-30%) 4 hours: 5.1% (0-10%) IMPRESSION: Gastric emptying is in the normal range. RADIA
== END 2019-06-19 09:08 | disposition home or self-care (01) ==
LOC: DI 09:07
PROVIDERS: ATTEND Student in an Organized Health Care Education/Training Program
DX: K59.03 Drug induced constipation (principal); R10.9 Unspecified abdominal pain; R11.2 Nausea with vomiting, unspecified
CPT/HCPCS: 78265

== ENCOUNTER 2019-11-13 17:42 | Outpatient (CLI) | payer MEDICARE, MEDICAID | END 2019-11-13 17:43 | disposition home or self-care (01) | LOC: COV 17:42 | PROVIDERS: ATTEND Family Medicine | DX: R05 Cough (principal); R50.9 Fever, unspecified | CPT/HCPCS: 81599 ==

== ENCOUNTER 2020-05-13 12:29 | Emergency (ER) | payer MEDICARE, MEDICAID ==
[2020-05-13 12:58] LABS: BASOPHILS # (AUTO) 0.1 10^3/uL (0.0-0.1); EOSINOPHILS # (AUTO) 0.1 10^3/uL (0.0-0.7); EOSINOPHILS % (AUTO) 1.2 %; HGB - HEMOGLOBIN 19.2 g/dL (14.0-18.0); LYMPHOCYTES # (AUTO) 1.9 10^3/uL (1.5-3.5); LYMPHOCYTES % (AUTO) 18.6 %; MEAN CORPUSCULAR HEMOGLOBIN 28.5 pg (27.0-31.0); MEAN CORPUSCULAR HGB CONC 33.4 g/dL (32.0-36.0); MEAN CORPUSCULAR VOLUME 85.3 fL (80.0-94.0); MEAN PLATELET VOLUME 8.8 fL (7.4-11.4); MONOCYTES # (AUTO) 0.6 10^3/uL (0.0-1.0); MONOCYTES % (AUTO) 5.5 %; NEUTROPHILS # (AUTO) 7.5 10^3/uL (1.5-6.6); NEUTROPHILS % (AUTO) 73.4 %; PLT - PLATELET COUNT 409 10^3/uL (130-450); RED BLOOD COUNT 6.73 10^6/uL (4.70-6.10); RED CELL DISTRIBUTION WIDTH 14.1 % (12.0-15.0); WHITE BLOOD COUNT 10.2 x10^3/uL (4.8-10.8)
[2020-05-13 13:13] LABS: ALBUMIN 5.2 g/dL (3.2-5.5); ALBUMIN/GLOBULIN RATIO 1.3 (1.0-2.2); BILIRUBIN,TOTAL 1.9 mg/dL (0.2-1.0); CALCIUM 10.5 mg/dL (8.5-10.3); CREATININE 1.1 mg/dL (0.6-1.2); TOTAL PROTEIN 9.1 g/dL (6.7-8.2)
--- NOTE | 2020-05-13 13:18 | ED Physician Documentation ---
PD HPI CHEST PAIN - Stated complaint Stated Complaint: CHEST/ARM TIGHTNESS - Chief complaint Chief Complaint: Cardiac - History obtained from History obtained from: Patient - Additional information Additional information: 50 yo M w/ multiple chronic medical conditions that were reviewed presents w/ chest pressure for 3 days that radiates down both arms. He reports pain in both forearms and both hands intermittently tingling. Sx constant since starting, cannot identify any alleviating or exacerbating factors. He also has generalized abdominal pain and nausea, though states this is common for him. He is reporting a left sided migraine which he does get from time to time. Headache is throbbing, associated w/ nausea, no vision changes, no light/sound sensitivity. Taking Fioricet at home for the headache, in addition to his regular chronic pain/fibromyalgia meds. He also notes that he received a flu shot on 05/09 and then slept for 3 days straight. Denies every having issues w/ flu shot in the past. He denies dyspnea, fever, chills, cough or URI sx. No diarrhea or constipation. No difficulty w urination. He is on a number of meds that were reviewed w/ him, denies any abrupt stoppage or change in meds except that he missed 2 days of Duloxetine recently and then restarted 2-3 days ago. Admits to marijuana use, denies other illicit drug use or non-prescribed med use. Denies etoh. Review of Systems Constitutional: reports: Myalgias, Fatigue, Sweats (chronic for pt). denies: Fever, Chills Cardiac: reports: Chest pain / pressure. denies: Palpitations, Pedal edema, Calf pain Respiratory: reports: Reviewed and negative GI: reports: Abdominal Pain, Nausea. denies: Abdominal Swelling, Vomiting, Constipation, Diarrhea, Hematemesis, Bloody / black stool : reports: Reviewed and negative Skin: reports: Reviewed and negative Musculoskeletal: reports: Extremity pain. denies: Neck pain, Back pain, Joint pain, Extremity swelling, Joint swelling Neurologic: reports: Reviewed and negative PD PAST MEDICAL HISTORY - Past Medical History Past Medical History: Yes Cardiovascular: Hypertension, High cholesterol, Peripheral Vascular Disease, Murmur Respiratory: COPD Neuro: Headaches, Migraines, Peripheral neuropathy, Tremors Endocrine/Autoimmune: None GI: GERD, GI bleed, Hemorrhoids : Renal insuffiency, Nocturia HEENT: Chronic vision loss, Chronic sinusitis, Chronic hearing loss Psych: Depression, Anxiety, Post traumatic stress disorder Musculoskeletal: Fibromyalgia, Fatigue, Chronic back pain Derm: None - Past Surgical History Past Surgical History: Yes General: Cholecystectomy, Colonoscopy, EGD HEENT: Myringotomy (tubes), Tonsil/Adenoidectomy - Present Medications Home Medications: Ambulatory Orders Medication Instructions Recorded Confirmed Omeprazole 20 mg PO BID 04/07/15 01/02/19 Cyclobenzaprine [Flexeril] 10 mg PO DAILY 10/16/15 01/02/19 Sucralfate 1 gm PO ACHS #120 tablet 10/31/15 01/02/19 raNITIdine [Zantac] 150 mg PO BID #60 tablet 10/31/15 01/02/19 Butalb/Acetaminophen/Caffeine 1 tab PO PRN PRN 07/08/16 01/02/19 [Fioricet 50-300-40 mg Capsule] Pregabalin [Lyrica] 150 mg PO BID 07/08/16 01/02/19 QUEtiapine [SEROquel] 50 mg PO QPM 07/08/16 01/02/19 Lorazepam [Ativan] 1 mg PO TID PRN #7 tablet 12/31/18 01/02/19 Dicyclomine HCl 10 mg PO BID 01/02/19 01/02/19 Venlafaxine HCl [Venlafaxine HCl 150 mg PO DAILY 01/02/19 01/02/19 ER] oxyCODONE/ACET 5/325 [Percocet 5 2 tab PO BID 01/02/19 01/02/19 mg/325 mg] Ondansetron Odt [Zofran] 4 mg TL Q6H PRN #10 tablet 05/06/19 LORazepam [Ativan] 0.5 mg PO DAILY #6 tablet 05/13/20 - Allergies Allergies/Adverse Reactions: Allergies Allergy/AdvReac Type Severity Reaction Status Date / Time codeine Allergy Severe Nausea Verified 05/13/20 12:39 ketamine AdvReac Hallucinati Verified 05/13/20 12:39 ons meperidine HCl * AdvReac Headache Verified 05/13/20 12:39 [From Demerol] mirtazapine AdvReac Headache Verified 05/13/20 12:39 - Social History Does the pt smoke?: Yes Smoking Status: Current every day smoker Does the pt drink ETOH?: Yes Does the pt have substance abuse?: Yes - Immunizations Immunizations are current?: Yes - POLST Patient has POLST: No POLST Status: Full Code PD ED PE NORMAL - Vitals Vital signs reviewed: Yes - General General: Alert and oriented X 3, No acute distress, Well developed/nourished - HEENT HEENT: Atraumatic, PERRL, EOMI, Moist mucous membranes, Pharynx benign - Neck Neck: Supple, no meningeal sign, Thyroid normal, No JVD - Cardiac Cardiac: No murmur, No gallop, No rub, Other (tachycardic) - Respiratory Respiratory: No respiratory distress, Clear bilaterally - Abdomen Abdomen: Normal bowel sounds, Soft, Non tender, Non distended, No organomegaly - Derm Derm: Normal color, Warm and dry, No rash - Extremities Extremities: No deformity, No tenderness to palpate, Normal ROM s pain, No edema, No calf tenderness / cord - Neuro Neuro: Alert and oriented X 3 Eye Opening: Spontaneous Motor: Obeys Commands Verbal: Oriented GCS Score: 15 - Psych Psych: Other (anxious appearing) Results - Vitals Vitals: Vital Signs - 24 hr 05/13/20 05/13/20 05/13/20 15:00 15:30 16:00 Temperature Heart Rate 110 H 106 H 109 H Respiratory 17 20 21 Rate Blood Pressure 139/104 H 156/116 H 155/115 H O2 Saturation 99 95 94 05/13/20 05/13/20 16:30 17:00 Temperature 36.7 C Heart Rate 104 H 106 H Respiratory 21 19 Rate Blood Pressure 149/106 H 150/100 H O2 Saturation 95 95 Oxygen O2 Source Room air - Labs Labs: Laboratory Tests 05/13/20 05/13/20 05/13/20 12:54 12:54 12:54 WBC 10.2 RBC 6.73 H Hgb 19.2 H Hct 57.4 H MCV 85.3 MCH 28.5 MCHC 33.4 RDW 14.1 Plt Count 409 MPV 8.8 Neut # (Auto) 7.5 H Lymph # (Auto) 1.9 [place] # (Auto) 0.6 Eos # (Auto) 0.1 Baso # (Auto) 0.1 Absolute Nucleated RBC 0.00 Nucleated RBC % 0.0 Sodium 140 Potassium 3.9 Chloride 102 Carbon Dioxide 24 Anion Gap 14.0 H BUN 18 Creatinine 1.1 Estimated GFR (MDRD) 70 L Glucose 108 H Calcium 10.5 H Total Bilirubin 1.9 H AST 74 H ALT 117 H Alkaline Phosphatase 72 Troponin I High Sens 2.8 Total Protein 9.1 H Albumin 5.2 Globulin 3.9 Albumin/Globulin Ratio 1.3 Lipase 41 Urine Opiates Screen Ur Oxycodone Screen Urine Methadone Screen Ur Propoxyphene Screen Ur Barbiturates Screen Ur Tricyclics Screen Ur Phencyclidine Scrn Ur Amphetamine Screen U Methamphetamines Scrn U Benzodiazepines Scrn Urine Cocaine Screen U Cannabinoids Screen 05/13/20 14:29 WBC RBC Hgb Hct MCV MCH MCHC RDW Plt Count MPV Neut # (Auto) Lymph # (Auto) [place]ann[place] # (Auto) Eos # (Auto) Baso # (Auto) Absolute Nucleated RBC Nucleated RBC % Sodium Potassium Chloride Carbon Dioxide Anion Gap BUN Creatinine Estimated GFR (MDRD) Glucose Calcium Total Bilirubin AST ALT Alkaline Phosphatase Troponin I High Sens Total Protein Albumin Globulin Albumin/Globulin Ratio Lipase Urine Opiates Screen NEGATIVE Ur Oxycodone Screen POSITIVE H Urine Methadone Screen NEGATIVE Ur Propoxyphene Screen NEGATIVE Ur Barbiturates Screen POSITIVE H Ur Tricyclics Screen POSITIVE H Ur Phencyclidine Scrn NEGATIVE Ur Amphetamine Screen NEGATIVE U Methamphetamines Scrn NEGATIVE U Benzodiazepines Scrn NEGATIVE Urine Cocaine Screen NEGATIVE U Cannabinoids Screen POSITIVE H PD MEDICAL DECISION MAKING - ED course Complexity details: reviewed old records, reviewed results, re-evaluated patient, considered differential, d/w patient, d/w family ED course: 50 yo M w/ multiple past medical problems presented w/ several different concerns including chest pressure, arm pain and tingling, headache, nausea, abd pain. He was tachycardic and hypertensive on arrival and somewhat anxious so there was concern for drug withdrawal or anxiety both of which patient has had in the past. He received dilaudid w/ improvement in symptoms and later received ativan with further improvement. His labs are generally reassuring though has a mild increase in LTFs and bili, he does not have a tender abdomen and I do not think additional imaging is indicated (he has had several CTs and MRCP in the past). His EKG was w/o acute ischemic changes and trop negative. I have low suspicion for ACS given the duration of time since sx started and the constellation of sx patient is having. He had noted improvement after meds and IVF and therefore we will discharge home with close follow up with his Primary Care Doctor. I reviewed pts elevated LFTs with him and he will follow up w/ PCP. I reviewed return precautions in detail w/ patient including recurrent chest pain, dyspnea, fever, increased abd pain, vomiting, or otherwise worsening sx. Departure - Departure Disposition: 01 Home, Self Care Clinical Impression: Atypical chest pain, Anxiety Condition: Good Instructions: ED Stress React, ED Chest Pain Atypical Unkn Cause Prescriptions: LORazepam [Ativan] 0.5 mg PO DAILY #6 tablet Comments: You presented with multiple different symptoms including chest pain and headache. Your chest xray and cardiac workup were reassuring. Your symptoms improved with a dose of pain medication and anxiety medication. You do have some elevation in your liver function testing which is slightly worse than your last exam. Please follow up with your primary doctor within one week for re- evaluation. IF you have worsening symptoms, new abdominal pain, vomiting, fever, or otherwise worsening symptoms, return to the ER. Discharge Date/Time: 05/13/20 17:10
[2020-05-13] MEDS ORDERED: SODIUM CHLORIDE 0.9% 1,000 ML IV STA ×2 (13:28→15:07)
--- NOTE | 2020-05-13 13:40 | XRAY Report ---
PROCEDURE: Chest 1 View X-Ray INDICATIONS: Chest pain TECHNIQUE: One view of the chest was acquired. COMPARISON: 04/07/2015 FINDINGS: Surgical changes and devices: None. Lungs and pleura: No pleural effusions or pneumothorax. Lungs are clear. Mediastinum: Mediastinal contours appear normal. Heart size is normal. Bones and chest wall: No suspicious bony lesions. Overlying soft tissues appear unremarkable. IMPRESSION: Chest without acute cardiopulmonary abnormalities. Reviewed by: Diego Art MD on 05/13/2020 1:39 PM PDT Approved by: Diego Art MD on 05/13/2020 1:39 PM PDT Station ID: [id number]
[2020-05-13] MEDS ORDERED: HYDROmorphone 2 MG/ML VIAL IVP STA (14:10)
[2020-05-13 14:34] LABS: MUDS CUTOFF CONCENTRATIONS CUTOFF CONC BELOW:
[2020-05-13 14:48] LABS: AMPHETAMINE SCREEN,URINE NEGATIVE (NEGATIVE); COCAINE SCREEN URINE NEGATIVE (NEGATIVE); METHAMPHETAMINES SCREEN, URINE NEGATIVE (NEGATIVE); OPIATE SCREEN, URINE NEGATIVE (NEGATIVE)
[2020-05-13 14:49] LABS: BENZODIAZEPINES SCREEN, URINE NEGATIVE (NEGATIVE); METHADONE SCREEN, URINE NEGATIVE (NEGATIVE); OXYCODONE SCREEN, URINE POSITIVE (NEGATIVE); PROPOXYPHENE SCREEN, URINE NEGATIVE (NEGATIVE); TRICYCLIC ANTIDEPRESSANT,URINE POSITIVE (NEGATIVE)
[2020-05-13] MEDS ORDERED: LORazepam 2 MG/ML VIAL IVP STA (15:07)
[2020-05-13 17:01] VITALS: BP 150/100
== END 2020-05-13 17:10 | disposition home or self-care (01) ==
LOC: ED 12:29
DX: R07.89 Other chest pain (principal); F41.9 Anxiety disorder, unspecified; R10.84 Generalized abdominal pain; R11.0 Nausea; R51 Headache; G89.29 Other chronic pain; I10 Essential (primary) hypertension; I73.9 Peripheral vascular disease, unspecified; G62.9 Polyneuropathy, unspecified; N28.9 Disorder of kidney and ureter, unspecified; F17.200 Nicotine dependence, unspecified, uncomplicated; R79.89 Other specified abnormal findings of blood chemistry
CPT/HCPCS: 36415; 71045; 80053; 80306; 83690; 84484; 85025; 93005; 96361; 96374; 96375; 99284; J1170; J2060

== ENCOUNTER 2021-03-16 17:45 | Emergency (ER) | payer MEDICARE, MEDICAID ==
[2021-03-16] MEDS ORDERED: HYDROmorphone 1 MG/ML CARPUJECT IVP STA ×2 (17:59→19:21)
[2021-03-16] MEDS ORDERED: ONDANSETRON 4 MG/2 ML VIAL IVP STA (17:59)
[2021-03-16] MEDS ORDERED: SODIUM CHLORIDE 0.9% 1,000 ML IV STA (17:59)
--- NOTE | 2021-03-16 18:01 | ED Physician Documentation ---
History of Present Illness - Stated complaint Stated Complaint: RUNNY NOSE,NAUSEA - Chief complaint Chief Complaint: General - History obtained from History obtained from: Patient - Additonal information Additional information: 50-year-old gentleman with history of chronic back pain and gastritis and ulcers presents with a 3-week syndrome with sweats, fatigue, shortness of breath and cough. No measured fevers. No sick contacts. He has been vaccinated against Covid. His stomach is hurting worse than usual and he has been nauseous. Review of Systems Constitutional: reports: Chills, Myalgias, Fatigue, Sweats Nose: denies: Rhinorrhea / runny nose Throat: denies: Sore throat GI: reports: Abdominal Pain, Nausea, Vomiting, Diarrhea PD PAST MEDICAL HISTORY - Past Medical History Cardiovascular: Hypertension, High cholesterol, Peripheral Vascular Disease, Murmur Respiratory: COPD Neuro: Headaches, Migraines, Peripheral neuropathy, Tremors Endocrine/Autoimmune: None GI: GERD, GI bleed, Hemorrhoids : Renal insuffiency, Nocturia HEENT: Chronic vision loss, Chronic sinusitis, Chronic hearing loss Psych: Depression, Anxiety, Post traumatic stress disorder Musculoskeletal: Fibromyalgia, Fatigue, Chronic back pain Derm: None - Past Surgical History Past Surgical History: Yes General: Cholecystectomy, Colonoscopy, EGD HEENT: Myringotomy (tubes), Tonsil/Adenoidectomy - Present Medications Home Medications: Ambulatory Orders Medication Instructions Recorded Confirmed Omeprazole 20 mg PO BID 04/07/15 03/16/21 Cyclobenzaprine [Flexeril] 10 mg PO DAILY 10/16/15 03/16/21 Sucralfate 1 gm PO ACHS #120 tablet 10/31/15 03/16/21 Butalb/Acetaminophen/Caffeine 1 tab PO PRN PRN 07/08/16 03/16/21 [Fioricet 50-300-40 mg Capsule] Pregabalin [Lyrica] 150 mg PO BID 07/08/16 01/02/19 QUEtiapine [SEROquel] 50 mg PO QPM 07/08/16 03/16/21 Lorazepam [Ativan] 1 mg PO TID PRN #7 tablet 12/31/18 01/02/19 Dicyclomine HCl 10 mg PO BID 01/02/19 03/16/21 Venlafaxine HCl [Venlafaxine HCl 150 mg PO DAILY 01/02/19 01/02/19 ER] oxyCODONE/ACET 5/325 [Percocet 5 2 tab PO TID 01/02/19 03/16/21 mg/325 mg] Ondansetron Odt [Zofran] 4 mg TL Q6H PRN #10 tablet 05/06/19 LORazepam [Ativan] 0.5 mg PO DAILY #6 tablet 05/13/20 Dicyclomine [Bentyl] 1 - 2 tab PO QID PRN #20 cap 03/16/21 Loperamide [Imodium] 2 mg PO QID PRN #10 cap 03/16/21 - Allergies Allergies/Adverse Reactions: Allergies Allergy/AdvReac Type Severity Reaction Status Date / Time codeine Allergy Severe Nausea Verified 03/16/21 17:54 ketamine AdvReac Hallucinati Verified 03/16/21 17:54 ons meperidine HCl * AdvReac Headache Verified 03/16/21 17:54 [From Demerol] mirtazapine AdvReac Headache Verified 03/16/21 17:54 - Social History Does the pt smoke?: Yes Smoking Status: Current every day smoker Does the pt drink ETOH?: Yes Does the pt have substance abuse?: Yes - Immunizations Immunizations are current?: Yes - POLST Patient has POLST: No POLST Status: Full Code PD ED PE NORMAL - Vitals Vital signs reviewed: Yes - General General: Alert and oriented X 3, No acute distress - HEENT HEENT: PERRL, EOMI, Pharynx benign - Neck Neck: Supple, no meningeal sign, No bony TTP - Cardiac Cardiac: RRR, No murmur - Respiratory Respiratory: No respiratory distress, Clear bilaterally - Abdomen Abdomen: Normal bowel sounds, Soft, Other (Modest diffuse tenderness without surgical signs) - Back Back: No CVA TTP, No spinal TTP - Derm Derm: Normal color, Warm and dry - Extremities Extremities: No edema, No calf tenderness / cord - Neuro Neuro: Alert and oriented X 3, Normal speech Results - Vitals Vitals: Vital Signs - 24 hr 03/16/21 03/16/21 17:54 18:31 Temperature 36.5 C Heart Rate 106 H 76 Respiratory 20 16 Rate Blood Pressure 143/114 H 157/100 H O2 Saturation 97 97 Oxygen O2 Source Room air - EKG (time done) 1815 Rate: Rate (enter#) (72) Rhythm: NSR [place]: Normal Intervals: Normal IA QRS: Normal Ischemia: Normal ST segments - Labs Labs: Laboratory Tests 03/16/21 03/16/21 03/16/21 18:09 18:09 18:09 WBC 9.1 RBC 6.16 H Hgb 18.2 H Hct 53.4 H MCV 86.7 MCH 29.5 MCHC 34.1 RDW 13.4 Plt Count 315 MPV 9.5 Neut # (Auto) 5.9 Lymph # (Auto) 2.4 [place] # (Auto) 0.6 Eos # (Auto) 0.1 Baso # (Auto) 0.1 Absolute Nucleated RBC 0.00 Nucleated RBC % 0.0 Sodium 142 Potassium 4.3 Chloride 104 Carbon Dioxide 23 Anion Gap 15.0 H BUN 21 H Creatinine 1.1 Estimated GFR (MDRD) 70 L Glucose 103 H Calcium 10.2 Total Bilirubin 1.9 H AST 68 H ALT 95 H Alkaline Phosphatase 71 Troponin I High Sens 4.8 Total Protein 8.7 H Albumin 5.1 Globulin 3.6 Albumin/Globulin Ratio 1.4 Lipase 43 Nasal Adenovirus (PCR) Nasal B. parapertussis DNA (PCR) Nasal Coronavir 229E PCR Nasal Coronavir HKU1 PCR Nasal Coronavir NL63 PCR Nasal Coronavir OC43 PCR Nasal Enterovir/Rhinovir PCR Nasal Influenza B PCR Nasal Influenza A PCR Nasal Parainfluen 1 PCR Nasal Parainfluen 2 PCR Nasal Parainfluen 3 PCR Nasal Parainfluen 4 PCR Nasal RSV (PCR) Nasal B.pertussis DNA PCR Nasal C.pneumoniae (PCR) Sean Human Metapneumo PCR Nasal M.pneumoniae (PCR) Nasal SARS-CoV-2 (PCR) 03/16/21 18:09 WBC RBC Hgb Hct MCV MCH MCHC RDW Plt Count MPV Neut # (Auto) Lymph # (Auto) [place] # (Auto) Eos # (Auto) Baso # (Auto) Absolute Nucleated RBC Nucleated RBC % Sodium Potassium Chloride Carbon Dioxide Anion Gap BUN Creatinine Estimated GFR (MDRD) Glucose Calcium Total Bilirubin AST ALT Alkaline Phosphatase Troponin I High Sens Total Protein Albumin Globulin Albumin/Globulin Ratio Lipase Nasal Adenovirus (PCR) NOT DETECTED Nasal B. parapertussis DNA (PCR) NOT DETECTED Nasal Coronavir 229E PCR NOT DETECTED Nasal Coronavir HKU1 PCR NOT DETECTED Nasal Coronavir NL63 PCR NOT DETECTED Nasal Coronavir OC43 PCR NOT DETECTED Nasal Enterovir/Rhinovir PCR NOT DETECTED Nasal Influenza B PCR NOT DETECTED Nasal Influenza A PCR NOT DETECTED Nasal Parainfluen 1 PCR NOT DETECTED Nasal Parainfluen 2 PCR NOT DETECTED Nasal Parainfluen 3 PCR NOT DETECTED Nasal Parainfluen 4 PCR NOT DETECTED Nasal RSV (PCR) NOT DETECTED Nasal B.pertussis DNA PCR NOT DETECTED Nasal C.pneumoniae (PCR) NOT DETECTED Sean Human Metapneumo PCR NOT DETECTED Nasal M.pneumoniae (PCR) NOT DETECTED Nasal SARS-CoV-2 (PCR) NOT DETECTED PD MEDICAL DECISION MAKING - ED course ED course: 50-year-old gentleman who has been vaccinated against Covid presents with what sounds like a viral syndrome with sweats, fatigue, cough and now for the last 3 days or so vomiting and diarrhea. He has chronic abdominal issues, note made of his liver enzymes which have been elevated for quite some time despite a negative MRCP and no clear diagnosis but they are not acutely worse. He is hemoconcentrated with a hemoglobin of 18.2 and for this he is administered some IV fluids. He was feeling better after meds here. Departure - Departure Disposition: 01 Home, Self Care Clinical Impression: Viral gastroenteritis, Dehydration Condition: Good Record reviewed to determine appropriate education?: Yes Instructions: ED Gastroenteritis Viral Prescriptions: Dicyclomine [Bentyl] 1 - 2 tab PO QID PRN #20 cap PRN Reason: Abdominal Pain Loperamide [Imodium] 2 mg PO QID PRN #10 cap PRN Reason: Diarrhea Comments: Call your doctor to arrange a follow-up appointment, make the next available appointment. In the interim, return anytime if worse or if new symptoms develop.
[2021-03-16 18:28] LABS: BASOPHILS # (AUTO) 0.1 10^3/uL (0.0-0.1); BASOPHILS % (AUTO) 0.8 %; EOSINOPHILS # (AUTO) 0.1 10^3/uL (0.0-0.7); EOSINOPHILS % (AUTO) 1.2 %; HCT - HEMATOCRIT 53.4 % (42.0-52.0); HGB - HEMOGLOBIN 18.2 g/dL (14.0-18.0); LYMPHOCYTES # (AUTO) 2.4 10^3/uL (1.5-3.5); LYMPHOCYTES % (AUTO) 26.6 %; MEAN CORPUSCULAR HEMOGLOBIN 29.5 pg (27.0-31.0); MEAN CORPUSCULAR HGB CONC 34.1 g/dL (32.0-36.0); MEAN CORPUSCULAR VOLUME 86.7 fL (80.0-94.0); MEAN PLATELET VOLUME 9.5 fL (7.4-11.4); MONOCYTES # (AUTO) 0.6 10^3/uL (0.0-1.0); MONOCYTES % (AUTO) 6.5 %; NEUTROPHILS # (AUTO) 5.9 10^3/uL (1.5-6.6); NEUTROPHILS % (AUTO) 64.7 %; PLT - PLATELET COUNT 315 10^3/uL (130-450); RED BLOOD COUNT 6.16 10^6/uL (4.70-6.10); RED CELL DISTRIBUTION WIDTH 13.4 % (12.0-15.0); WHITE BLOOD COUNT 9.1 x10^3/uL (4.8-10.8)
[2021-03-16 18:44] LABS: ALBUMIN 5.1 g/dL (3.2-5.5); ALBUMIN/GLOBULIN RATIO 1.4 (1.0-2.2); BILIRUBIN,TOTAL 1.9 mg/dL (0.2-1.0); CALCIUM 10.2 mg/dL (8.5-10.3); CREATININE 1.1 mg/dL (0.6-1.2); POTASSIUM 4.3 mmol/L (3.5-5.0); TOTAL PROTEIN 8.7 g/dL (6.7-8.2)
[2021-03-16] MEDS ORDERED: LACTATED RINGERS 1,000 ML IV STA (18:54)
--- NOTE | 2021-03-16 19:08 | XRAY Report ---
PROCEDURE: Chest 1 View X-Ray INDICATIONS: dyspnea cough TECHNIQUE: One view of the chest was acquired. COMPARISON: Chest radiographs 05/13/2020 FINDINGS: Surgical changes and devices: None. Lungs and pleura: No pleural effusions or pneumothorax. Lungs are clear. Mediastinum: Mediastinal contours appear normal. Heart size is normal. Bones and chest wall: No suspicious bony lesions. Overlying soft tissues appear unremarkable. IMPRESSION: No acute cardiopulmonary abnormality. Reviewed by: Aris Manzo MD on 03/16/2021 7:07 PM PDT Approved by: Aris Manzo MD on 03/16/2021 7:07 PM PDT Station ID: [id number]
[2021-03-16 19:40] LABS: B. PARAPERTUSSIS- RESP PCR PAN NOT DETECTED; B. PERTUSSIS- RESP PCR PANEL NOT DETECTED; C. PNEUMONIAE- RESP PCR PANEL NOT DETECTED; CORONAVIRUS 229E-RESP PCR NOT DETECTED; CORONAVIRUS HKU1-RESP PCR NOT DETECTED; CORONAVIRUS NL63-RESP PCR NOT DETECTED; CORONAVIRUS OC43-RESP PCR NOT DETECTED; HUMAN METAPNEUMOVIRUS NOT DETECTED; INFLUENZA A- RESP PCR PANEL NOT DETECTED; INFLUENZA B - RESP PCR PANEL NOT DETECTED; M. PNEUMONIAE- RESP PCR PANEL NOT DETECTED; PARAINFLUENZA VIRUS 1 NOT DETECTED; PARAINFLUENZA VIRUS 2 NOT DETECTED; PARAINFLUENZA VIRUS 3 NOT DETECTED; PARAINFLUENZA VIRUS 4 NOT DETECTED; RHINOVIRUS/ENTEROVIRUS NOT DETECTED; RSV- RESP PCR PANEL NOT DETECTED; SARS-CoV-2 -RESP PCR PANEL NOT DETECTED
[2021-03-16 21:06] VITALS: BP 143/95
== END 2021-03-16 20:55 | disposition home or self-care (01) ==
LOC: ED 17:45
DX: A08.4 Viral intestinal infection, unspecified (principal); E86.0 Dehydration; I10 Essential (primary) hypertension; F17.200 Nicotine dependence, unspecified, uncomplicated; Z20.822 Contact with and (suspected) exposure to COVID-19
CPT/HCPCS: 36415; 71045; 80053; 83690; 84484; 85025; 87631; 93005; 96361; 96374; 96375; 96376; 99284; J1170; J7120; 0202U

== ENCOUNTER 2021-12-01 17:41 | Emergency (ER) | payer MEDICARE, MEDICAID ==
[2021-12-01] MEDS ORDERED: SODIUM CHLORIDE 0.9% 1,000 ML IV STA ×3 (18:01→18:27)
[2021-12-01 18:08] LABS: BASOPHILS # (AUTO) 0.1 10^3/uL (0.0-0.1); BASOPHILS % (AUTO) 0.7 %; EOSINOPHILS # (AUTO) 0.1 10^3/uL (0.0-0.7); EOSINOPHILS % (AUTO) 1.6 %; HCT - HEMATOCRIT 52.9 % (42.0-52.0); HGB - HEMOGLOBIN 18.1 g/dL (14.0-18.0); LYMPHOCYTES # (AUTO) 2.1 10^3/uL (1.5-3.5); LYMPHOCYTES % (AUTO) 25.4 %; MEAN CORPUSCULAR HEMOGLOBIN 29.4 pg (27.0-31.0); MEAN CORPUSCULAR HGB CONC 34.2 g/dL (32.0-36.0); MEAN CORPUSCULAR VOLUME 85.9 fL (80.0-94.0); MEAN PLATELET VOLUME 9.6 fL (7.4-11.4); MONOCYTES # (AUTO) 0.5 10^3/uL (0.0-1.0); MONOCYTES % (AUTO) 6.7 %; NEUTROPHILS # (AUTO) 5.3 10^3/uL (1.5-6.6); NEUTROPHILS % (AUTO) 65.4 %; PLT - PLATELET COUNT 321 10^3/uL (130-450); RED BLOOD COUNT 6.16 10^6/uL (4.70-6.10); RED CELL DISTRIBUTION WIDTH 13.8 % (12.0-15.0); WHITE BLOOD COUNT 8.1 x10^3/uL (4.8-10.8)
[2021-12-01 18:19] LABS: ALBUMIN 4.7 g/dL (3.2-5.5); ALBUMIN/GLOBULIN RATIO 1.3 (1.0-2.2); BILIRUBIN,TOTAL 1.5 mg/dL (0.2-1.0); CALCIUM 10.1 mg/dL (8.5-10.3); POTASSIUM 3.9 mmol/L (3.5-5.0); TOTAL PROTEIN 8.4 g/dL (6.7-8.2)
[2021-12-01] MEDS ORDERED: HYDROmorphone 1 MG/ML CARPUJECT IVP STA ×2 (18:26→20:22)
[2021-12-01] MEDS ORDERED: ONDANSETRON 4 MG/2 ML VIAL IVP STA (18:26)
[2021-12-01] MEDS ORDERED: IOVERSOL 320 100 ML VIAL IVP ONE ×2 (18:59→19:20)
--- NOTE | 2021-12-01 20:00 | CT Report ---
PROCEDURE: Abdomen/Pelvis W INDICATIONS: LLQ abd pain CONTRAST: IV CONTRAST: Optiray 320 ml: 100 PO CONTRAST: *NO PO CONTRAST TECHNIQUE: After the administration of intravenous contrast, 5 mm thick sections acquired from the diaphragms to the symphysis. 5 mm thick coronal and sagittal reformats were acquired. For radiation dose reducti on, the following was used: automated exposure control, adjustment of mA and/or kV according to carlin ent size. COMPARISON: CT abdomen pelvis 01/02/2019. FINDINGS: Image quality: Excellent. ABDOMEN: Lung bases: Lung bases are clear. Heart size is normal. Solid organs: Liver and spleen are normal in size. Hepatic steatosis. Gallbladder is surgically abse nt. Biliary system is at the upper limits of normal in this postcholecystectomy patient. Pancreas e nhances normally. No adrenal nodules. Kidneys demonstrate normal size and enhancement, without hydr onephrosis. Peritoneum and bowel: Bowel loops demonstrate normal wall thickness and caliber. A few colonic diver ticuli. Normal appendix. No free fluid or air. Nodes and vessels: No retroperitoneal or mesenteric adenopathy by size criteria. Aorta and inferior vena cava are normal in size. Moderate plaque. Miscellaneous: No ventral hernias. PELVIS: Genitourinary: Bladder is decompressed. Miscellaneous: No inguinal hernias or adenopathy. Bones: No suspicious bony lesions. No vertebral body compression fractures. IMPRESSION: No acute abnormality is identified. No free fluid. Hepatic steatosis. Reviewed by: Wil Domínguez MD on 12/01/2021 7:59 PM PDT Approved by: Wil Domínguez MD on 12/01/2021 7:59 PM PDT Station ID: [id number]
[2021-12-01 20:01] VITALS: BP 143/86
[2021-12-01 20:11] LABS: GLUCOSE, URINE (UA) NEGATIVE (NEGATIVE); KETONES,URINE (UA) >=80 mg/dL (NEGATIVE); LEUKOCYTE ESTERASE, URINE NEGATIVE (NEGATIVE); NITRITE,URINE NEGATIVE (NEGATIVE); OCCULT BLOOD,URINE NEGATIVE (NEGATIVE); PROTEIN,URINE NEGATIVE (NEGATIVE); UROBILINOGEN,URINE 1 (NORMAL) E.U./dL (NORMAL)
[2021-12-01 20:17] LABS: BILIRUBIN,URINE MODERATE (NEGATIVE); CLARITY,URINE CLEAR (CLEAR); ICTOTEST,URINE POSITIVE
--- NOTE | 2021-12-01 20:24 | ED Physician Documentation ---
PD HPI ABD PAIN - Stated complaint Stated Complaint: DEHYDRATED,ABD PX - Chief complaint Chief Complaint: Abd Pain - History obtained from History obtained from: Patient - History of Present Illness Timing - onset: How many days ago (3-4) Timing - duration: Days Timing - details: Gradual onset Pain level max: 8 Pain level now: 8 Quality: Cramping, Aching, Pain Location: All over / everywhere Associated symptoms: Nausea, Vomiting, Diarrhea. No: Fever, Melena, Hematochezia, Dysuria, Hematuria, Chest pain, Dizzy - Additional information Additional information: 51-year-old male presents to the emergency department with abdominal pain, 4 days ago. Described as cramping, aching pain all over. Nothing makes it better or worse. Has had vomiting and diarrhea as well. He states that he has had these issues since he was 11 years old. There is never been a cause found. He states he feels very dehydrated. He is on chronic pain medication at home and has been unable to keep them down. No fevers. No chills. No blood in the stool. Review of Systems Constitutional: denies: Fever, Chills Respiratory: denies: Cough GI: reports: Vomiting, Diarrhea Skin: denies: Rash Musculoskeletal: denies: Neck pain, Back pain Neurologic: denies: Headache PD PAST MEDICAL HISTORY - Past Medical History Past Medical History: Yes Cardiovascular: Hypertension, High cholesterol, Peripheral Vascular Disease, Murmur Respiratory: COPD Neuro: Headaches, Migraines, Peripheral neuropathy, Tremors Endocrine/Autoimmune: None GI: GERD, GI bleed, Hemorrhoids : Renal insuffiency, Nocturia HEENT: Chronic vision loss, Chronic sinusitis, Chronic hearing loss Psych: Depression, Anxiety, Post traumatic stress disorder Musculoskeletal: Fibromyalgia, Fatigue, Chronic back pain Derm: None - Past Surgical History Past Surgical History: Yes General: Cholecystectomy, Colonoscopy, EGD HEENT: Myringotomy (tubes), Tonsil/Adenoidectomy - Present Medications Home Medications: Ambulatory Orders Medication Instructions Recorded Confirmed Omeprazole 20 mg PO DAILY 04/07/15 12/01/21 Pregabalin [Lyrica] 150 mg PO BID 07/08/16 12/01/21 Dicyclomine [Bentyl] 1 - 2 tab PO QID PRN #20 cap 03/16/21 12/01/21 Baclofen [Lioresal] 10 mg PO Q8HR PRN 12/01/21 12/01/21 Duloxetine HCl [Cymbalta] 60 mg PO BID 12/01/21 12/01/21 Propranolol HCl 20 mg PO BID 12/01/21 12/01/21 SUMAtriptan [Imitrex] 50 - 100 mg ORAL PRN PRN 12/01/21 12/01/21 oxyCODONE/ACET 5/325 [Percocet 5 1 each PO Q8HR PRN 12/01/21 12/01/21 mg/325 mg] - Allergies Allergies/Adverse Reactions: Allergies Allergy/AdvReac Type Severity Reaction Status Date / Time codeine Allergy Severe Nausea Verified 12/01/21 17:44 ketamine AdvReac Hallucinati Verified 12/01/21 17:44 ons meperidine HCl * AdvReac Headache Verified 12/01/21 17:44 [From Demerol] mirtazapine AdvReac Headache Verified 12/01/21 17:44 - Social History Does the pt smoke?: Yes Smoking Status: Current every day smoker Does the pt drink ETOH?: Yes Does the pt have substance abuse?: Yes Substance Use and Type: Marijuana - Immunizations Immunizations are current?: Yes - POLST Patient has POLST: No POLST Status: Full Code PD ED PE NORMAL - Vitals Vital signs reviewed: Yes - General General: Alert and oriented X 3, No acute distress - HEENT HEENT: PERRL, Other (dry lips) - Neck Neck: Supple, no meningeal sign - Cardiac Cardiac: RRR - Respiratory Respiratory: No respiratory distress, Clear bilaterally - Abdomen Abdomen: Normal bowel sounds, Soft, Non distended, Other (Mild diffuse tenderness to palpation without peritoneal signs.) - Derm Derm: Warm and dry - Extremities Extremities: No edema - Neuro Neuro: Alert and oriented X 3 - Psych Psych: Normal mood, Normal affect Results - Vitals Vitals: Vital Signs - 24 hr 12/01/21 12/01/21 12/01/21 17:45 18:14 20:00 Temperature 36.1 C L Heart Rate 65 68 77 Respiratory 18 16 16 Rate Blood Pressure 142/102 H 162/100 H 143/86 H O2 Saturation 100 97 99 Oxygen O2 Source Room air - Labs Labs: Laboratory Tests 12/01/21 12/01/21 12/01/21 18:02 18:02 19:15 WBC 8.1 RBC 6.16 H Hgb 18.1 H Hct 52.9 H MCV 85.9 MCH 29.4 MCHC 34.2 RDW 13.8 Plt Count 321 MPV 9.6 Neut # (Auto) 5.3 Lymph # (Auto) 2.1 [facility] # (Auto) 0.5 Eos # (Auto) 0.1 Baso # (Auto) 0.1 Absolute Nucleated RBC 0.00 Nucleated RBC % 0.0 Sodium 140 Potassium 3.9 Chloride 104 Carbon Dioxide 22 Anion Gap 14.0 H BUN 18 Creatinine 1.0 Estimated GFR (MDRD) 78 L Glucose 107 H Calcium 10.1 Total Bilirubin 1.5 H AST 46 H ALT 62 H Alkaline Phosphatase 89 Total Protein 8.4 H Albumin 4.7 Globulin 3.8 Albumin/Globulin Ratio 1.3 Lipase 53 H Urine Color DARK YELLOW Urine Clarity CLEAR Urine pH 6.0 Ur Specific [place] 1.025 Urine Protein NEGATIVE Urine Glucose (UA) NEGATIVE Urine Ketones >=80 H Urine Occult Blood NEGATIVE Urine Nitrite NEGATIVE Urine Bilirubin MODERATE H Urine Urobilinogen 1 (NORMAL) Ur Leukocyte Esterase NEGATIVE Ur Microscopic Review NOT INDICATED Urine Culture Comments NOT INDICATED - Rads (name of study) CT abdomen and pelvis Radiology: Final report received, EMP read contemporaneously, See rad report (No acute abnormality) PD MEDICAL DECISION MAKING - ED course Complexity details: reviewed results, re-evaluated patient, considered diff erential, d/w patient ED course: Patient was given pain medicine and IV fluids. Feels significantly better. Tolerating p.o. without difficulty. No acute findings on CT scan of the abdomen pelvis. He does appear hemoconcentrated this can be evidenced by his polycythemia. He is drinking fluids after medication here. He request to go home at this time. I have him follow-up with his doctor for further care. Patient is well-appearing, nontoxic. Afebrile. Patient counseled regarding signs and symptoms for which I believe and urgent re-evaluation would be necessa ry. Patient with good understanding of and agreement to plan and is comfortable going home at this time This document was made in part using voice recognition software. While efforts are made to proofread this document, sound alike and grammatical errors may occur. Departure - Departure Disposition: 01 Home, Self Care Clinical Impression: Dehydration, Polycythemia Abdominal pain Qualifiers: Abdominal location: generalized Qualified Code(s): R10.84 - Generalized abdominal pain Condition: Good Instructions: ED Dehydration, ED Abdominal Pain Unkn Cause Male Follow-Up: BRETT TAM MD [Primary Care Provider] - Within 1 week Comments: Your CT scan does not show any acute abnormalities tonight. Make sure you are drinking plenty of fluids at home. Return if you worsen. Follow-up with your doctor for further care. Discharge Date/Time: 12/01/21 20:47
== END 2021-12-01 20:47 | disposition home or self-care (01) ==
LOC: ED 17:41
DX: E86.0 Dehydration (principal); D75.1 Secondary polycythemia; I10 Essential (primary) hypertension; F17.200 Nicotine dependence, unspecified, uncomplicated
CPT/HCPCS: 36415; 74177; 80053; 81003; 83690; 85025; 96361; 96374; 96375; 99284; J1170; Q9967; 81001; 87086

== ENCOUNTER 2021-12-02 12:29 | Emergency (ER) | payer MEDICARE, MEDICAID ==
[2021-12-02 13:13] LABS: BASOPHILS % (AUTO) 0.5 %; EOSINOPHILS # (AUTO) 0.1 10^3/uL (0.0-0.7); EOSINOPHILS % (AUTO) 1.2 %; HCT - HEMATOCRIT 51.3 % (42.0-52.0); HGB - HEMOGLOBIN 17.5 g/dL (14.0-18.0); LYMPHOCYTES # (AUTO) 1.7 10^3/uL (1.5-3.5); LYMPHOCYTES % (AUTO) 23.2 %; MEAN CORPUSCULAR HEMOGLOBIN 29.6 pg (27.0-31.0); MEAN CORPUSCULAR HGB CONC 34.1 g/dL (32.0-36.0); MEAN CORPUSCULAR VOLUME 86.8 fL (80.0-94.0); MEAN PLATELET VOLUME 9.3 fL (7.4-11.4); MONOCYTES # (AUTO) 0.4 10^3/uL (0.0-1.0); MONOCYTES % (AUTO) 5.3 %; NEUTROPHILS # (AUTO) 5.1 10^3/uL (1.5-6.6); NEUTROPHILS % (AUTO) 69.7 %; PLT - PLATELET COUNT 292 10^3/uL (130-450); RED BLOOD COUNT 5.91 10^6/uL (4.70-6.10); RED CELL DISTRIBUTION WIDTH 13.9 % (12.0-15.0); WHITE BLOOD COUNT 7.4 x10^3/uL (4.8-10.8)
[2021-12-02 13:32] LABS: ALBUMIN 4.6 g/dL (3.2-5.5); ALBUMIN/GLOBULIN RATIO 1.3 (1.0-2.2); ALKALINE PHOSPHATASE 83 IU/L (42-121); ALT ALANINE AMINOTRANSFERASE 59 IU/L (10-60); AST ASPARTATE AMINOTRANSFERASE 46 IU/L (10-42); BILIRUBIN,TOTAL 1.6 mg/dL (0.2-1.0); BUN - BLOOD UREA NITROGEN 18 mg/dL (6-20); CALCIUM 9.6 mg/dL (8.5-10.3); CARBON DIOXIDE - CO2 23 mmol/L (21-32); CHLORIDE 101 mmol/L (101-111); ETOH - ETHANOL < 5.0 mg/dL; GFR - MDRD 78 (>89); GLUCOSE 104 mg/dL (70-100); LIPASE 55 U/L (22-51); MAGNESIUM 1.8 mg/dL (1.7-2.8); POTASSIUM 3.8 mmol/L (3.5-5.0); SODIUM 137 mmol/L (135-145); TOTAL PROTEIN 8.1 g/dL (6.7-8.2)
[2021-12-02] MEDS ORDERED: METOCLOPRAMIDE 10 MG/2 ML VIAL IVP STA (13:43)
[2021-12-02] MEDS ORDERED: LORazepam 2 MG/ML VIAL IVP STA (13:43)
[2021-12-02] MEDS ORDERED: SUMAtriptan 6 MG/0.5 ML VIAL SUBQ STA (13:43)
[2021-12-02] MEDS ORDERED: SODIUM CHLORIDE 0.9% 1,000 ML IV STA (13:44)
--- NOTE | 2021-12-02 13:46 | ED Physician Documentation ---
PD HPI ABD PAIN - Stated complaint Stated Complaint: ABD PX,HEADACHE,VOMITING - Chief complaint Chief Complaint: Abd Pain - History obtained from History obtained from: Patient - Additional information Additional information: 51-year-old gentleman presents by private vehicle accompanied by his . He has chronic abdominal issues related to GERD and hiatal hernia. He also has a remote history of hernia repairs and gallbladder surgery. He does use marijuana daily and alcohol occasionally. He developed lower abdominal pain a few nights ago with vomiting and diarrhea. The vomiting continues but the diarrhea stopped and then developed a migraine headache early last night. Was seen by her partner last night with testing including a CT that was unremarkable and labs showing hemoconcentration and mild elevation in liver enzymes and ketonuria. He has continued to vomit and have abdominal pain since discharge. Review of Systems Ten Systems: 10 systems reviewed and negative Constitutional: reports: Myalgias, Fatigue, Sweats Cardiac: denies: Chest pain / pressure, Palpitations Respiratory: denies: Dyspnea, Cough GI: reports: Abdominal Pain, Nausea, Vomiting, Diarrhea. denies: Constipation, Hematemesis, Bloody / black stool : denies: Dysuria, Frequency Psychiatric: reports: Anxiety PD PAST MEDICAL HISTORY - Past Medical History Past Medical History: Yes Cardiovascular: Hypertension, High cholesterol, Peripheral Vascular Disease, Murmur Respiratory: COPD Neuro: Headaches, Migraines, Peripheral neuropathy, Tremors Endocrine/Autoimmune: None GI: GERD, GI bleed, Hemorrhoids : Renal insuffiency, Nocturia HEENT: Chronic vision loss, Chronic sinusitis, Chronic hearing loss Psych: Depression, Anxiety, Post traumatic stress disorder Musculoskeletal: Fibromyalgia, Fatigue, Chronic back pain Derm: None - Past Surgical History Past Surgical History: Yes General: Cholecystectomy, Colonoscopy, EGD HEENT: Myringotomy (tubes), Tonsil/Adenoidectomy - Present Medications Home Medications: Ambulatory Orders Medication Instructions Recorded Confirmed Omeprazole 20 mg PO DAILY 04/07/15 12/02/21 Pregabalin [Lyrica] 150 mg PO BID 07/08/16 12/02/21 Dicyclomine [Bentyl] 1 - 2 tab PO QID PRN #20 cap 03/16/21 12/02/21 Baclofen [Lioresal] 10 mg PO Q8HR PRN 12/01/21 12/02/21 Duloxetine HCl [Cymbalta] 60 mg PO BID 12/01/21 12/02/21 Propranolol HCl 20 mg PO BID 12/01/21 12/02/21 SUMAtriptan [Imitrex] 50 - 100 mg ORAL PRN PRN 12/01/21 12/02/21 oxyCODONE/ACET 5/325 [Percocet 5 1 each PO Q8HR PRN 12/01/21 12/02/21 mg/325 mg] Metoclopramide [Reglan] 10 mg PO Q6H PRN #20 tablet 12/02/21 Ondansetron Odt [Zofran] 4 mg TL Q6H PRN #10 tablet 12/02/21 - Allergies Allergies/Adverse Reactions: Allergies Allergy/AdvReac Type Severity Reaction Status Date / Time codeine Allergy Severe Nausea Verified 12/02/21 12:38 ketamine AdvReac Hallucinati Verified 12/02/21 12:38 ons meperidine HCl * AdvReac Headache Verified 12/02/21 12:38 [From Demerol] mirtazapine AdvReac Headache Verified 12/02/21 12:38 - Social History Does the pt smoke?: Yes Smoking Status: Current every day smoker Does the pt drink ETOH?: Yes Does the pt have substance abuse?: Yes - Immunizations Immunizations are current?: Yes - POLST Patient has POLST: No POLST Status: Full Code PD ED PE NORMAL - Vitals Vital signs reviewed: Yes - General General: Alert and oriented X 3, No acute distress - HEENT HEENT: PERRL, EOMI - Neck Neck: Supple, no meningeal sign, No bony TTP - Cardiac Cardiac: RRR, No murmur - Respiratory Respiratory: No respiratory distress, Clear bilaterally - Abdomen Abdomen: Normal bowel sounds, Soft, Non tender - Back Back: No CVA TTP, No spinal TTP - Derm Derm: Normal color, Warm and dry - Extremities Extremities: No edema, No calf tenderness / cord - Neuro Neuro: Alert and oriented X 3, Normal speech Results - Vitals Vitals: Vital Signs - 24 hr 12/02/21 12/02/21 12:38 15:05 Temperature 36 C L 37.1 C Heart Rate 66 83 Respiratory 18 16 Rate Blood Pressure 148/104 H 128/89 H O2 Saturation 99 98 Oxygen O2 Source Room air - Labs Labs: Laboratory Tests 12/02/21 12/02/21 12/02/21 13:07 13:07 15:35 WBC 7.4 RBC 5.91 Hgb 17.5 Hct 51.3 MCV 86.8 MCH 29.6 MCHC 34.1 RDW 13.9 Plt Count 292 MPV 9.3 Neut # (Auto) 5.1 Lymph # (Auto) 1.7 [place] # (Auto) 0.4 Eos # (Auto) 0.1 Baso # (Auto) 0.0 Absolute Nucleated RBC 0.00 Nucleated RBC % 0.0 Sodium 137 Potassium 3.8 Chloride 101 Carbon Dioxide 23 Anion Gap 13.0 BUN 18 Creatinine 1.0 Estimated GFR (MDRD) 78 L Glucose 104 H Calcium 9.6 Magnesium 1.8 Total Bilirubin 1.6 H AST 46 H ALT 59 Alkaline Phosphatase 83 Total Protein 8.1 Albumin 4.6 Globulin 3.5 Albumin/Globulin Ratio 1.3 Lipase 55 H Urine Color DARK YELLOW Urine Clarity CLEAR Urine pH 6.0 Ur Specific [place] >=1.030 H Urine Protein NEGATIVE Urine Glucose (UA) NEGATIVE Urine Ketones >=80 H Urine Occult Blood NEGATIVE Urine Nitrite NEGATIVE Urine Bilirubin NEGATIVE Urine Urobilinogen 0.2 (NORMAL) Ur Leukocyte Esterase NEGATIVE Ur Microscopic Review NOT INDICATED Urine Culture Comments NOT INDICATED Urine Opiates Screen POSITIVE H Ur Oxycodone Screen NEGATIVE Urine Methadone Screen NEGATIVE Ur Propoxyphene Screen NEGATIVE Ur Barbiturates Screen NEGATIVE Ur Tricyclics Screen NEGATIVE Ur Phencyclidine Scrn NEGATIVE Ur Amphetamine Screen NEGATIVE U Methamphetamines Scrn NEGATIVE U Benzodiazepines Scrn POSITIVE H Urine Cocaine Screen NEGATIVE U Cannabinoids Screen POSITIVE H Ethyl Alcohol < 5.0 PD MEDICAL DECISION MAKING - ED course ED course: 51-year-old gentleman with chronic abdominal issues presents with potential exacerbation of same, very benign exam and labs. After the administration of Ativan, Dilaudid, and Zofran he was doing well. Since he had bounced back so quickly we observed him for a few hours and had no recurrence and vomiting and passed p.o. challenge. Departure - Departure Disposition: 01 Home, Self Care Clinical Impression: Dehydration, Vomiting Condition: Good Record reviewed to determine appropriate education?: Yes Instructions: ED Dehydration Prescriptions: Metoclopramide [Reglan] 10 mg PO Q6H PRN #20 tablet PRN Reason: nausea or headache Ondansetron Odt [Zofran] 4 mg TL Q6H PRN #10 tablet PRN Reason: Nausea / Vomiting Comments: I sent some prescriptions for a couple different types of antinausea medicines to [facility] in [place]. Return if worsening. Follow-up with your doctor, next available appointment.
[2021-12-02] MEDS ORDERED: HYDROmorphone 1 MG/ML CARPUJECT IVP STA (14:19)
[2021-12-02 15:41] LABS: MUDS CUTOFF CONCENTRATIONS CUTOFF CONC BELOW:
[2021-12-02 15:44] LABS: GLUCOSE, URINE (UA) NEGATIVE (NEGATIVE); KETONES,URINE (UA) >=80 mg/dL (NEGATIVE); LEUKOCYTE ESTERASE, URINE NEGATIVE (NEGATIVE); NITRITE,URINE NEGATIVE (NEGATIVE); OCCULT BLOOD,URINE NEGATIVE (NEGATIVE); PROTEIN,URINE NEGATIVE (NEGATIVE); UROBILINOGEN,URINE 0.2 (NORMAL) E.U./dL (NORMAL)
[2021-12-02 15:55] LABS: BILIRUBIN,URINE NEGATIVE (NEGATIVE); CLARITY,URINE CLEAR (CLEAR); ICTOTEST,URINE NEGATIVE
[2021-12-02 16:00] LABS: AMPHETAMINE SCREEN,URINE NEGATIVE (NEGATIVE); BARBITURATE SCREEN,UR NEGATIVE (NEGATIVE); BENZODIAZEPINES SCREEN, URINE POSITIVE (NEGATIVE); COCAINE SCREEN URINE NEGATIVE (NEGATIVE); METHADONE SCREEN, URINE NEGATIVE (NEGATIVE); METHAMPHETAMINES SCREEN, URINE NEGATIVE (NEGATIVE); OPIATE SCREEN, URINE POSITIVE (NEGATIVE); OXYCODONE SCREEN, URINE NEGATIVE (NEGATIVE); THC CANNABINOID SCREEN, URINE POSITIVE (NEGATIVE); TRICYCLIC ANTIDEPRESSANT,URINE NEGATIVE (NEGATIVE)
[2021-12-02 16:01] LABS: PROPOXYPHENE SCREEN, URINE NEGATIVE (NEGATIVE)
[2021-12-02 17:36] VITALS: BP 149/92
== END 2021-12-02 17:36 | disposition home or self-care (01) ==
LOC: ED 12:29
DX: E86.0 Dehydration (principal); R11.2 Nausea with vomiting, unspecified; I10 Essential (primary) hypertension; F17.200 Nicotine dependence, unspecified, uncomplicated
CPT/HCPCS: 36415; 80053; 80306; 81003; 83690; 83735; 85025; 96361; 96372; 96374; 96375; 99282; 99284; G0480; J1170; J2060; J2765; 80320; 81001; 87086

== ENCOUNTER 2022-01-20 16:30 | Emergency (ER) | payer MEDICARE, MEDICAID ==
[2022-01-20 16:47] VITALS: BP 131/93
== END 2022-01-20 17:44 | disposition left against medical advice (07) ==
LOC: ED 16:30 → SUPCPDRO 16:30 → ED 17:44
DX: Z53.21 Procedure and treatment not carried out due to patient leaving prior to being seen by health care provider (principal)

== ENCOUNTER 2022-01-21 11:02 | Emergency (ER) | payer MEDICARE, MEDICAID ==
[2022-01-21 11:40] LABS: BASOPHILS # (AUTO) 0.1 10^3/uL (0.0-0.1); BASOPHILS % (AUTO) 0.7 %; EOSINOPHILS % (AUTO) 0.3 %; HCT - HEMATOCRIT 55.8 % (42.0-52.0); HGB - HEMOGLOBIN 19.2 g/dL (14.0-18.0); LYMPHOCYTES # (AUTO) 2.7 10^3/uL (1.5-3.5); LYMPHOCYTES % (AUTO) 26.2 %; MEAN CORPUSCULAR HEMOGLOBIN 29.8 pg (27.0-31.0); MEAN CORPUSCULAR HGB CONC 34.4 g/dL (32.0-36.0); MEAN CORPUSCULAR VOLUME 86.5 fL (80.0-94.0); MEAN PLATELET VOLUME 9.7 fL (7.4-11.4); MONOCYTES # (AUTO) 0.6 10^3/uL (0.0-1.0); MONOCYTES % (AUTO) 5.9 %; NEUTROPHILS # (AUTO) 6.9 10^3/uL (1.5-6.6); NEUTROPHILS % (AUTO) 66.7 %; PLT - PLATELET COUNT 382 10^3/uL (130-450); RED BLOOD COUNT 6.45 10^6/uL (4.70-6.10); RED CELL DISTRIBUTION WIDTH 13.7 % (12.0-15.0); WHITE BLOOD COUNT 10.4 x10^3/uL (4.8-10.8)
[2022-01-21 11:54] LABS: ALBUMIN 5.2 g/dL (3.2-5.5); ALBUMIN/GLOBULIN RATIO 1.2 (1.0-2.2); BILIRUBIN,TOTAL 1.9 mg/dL (0.2-1.0); CALCIUM 10.1 mg/dL (8.5-10.3); CREATININE 1.1 mg/dL (0.6-1.2); TOTAL PROTEIN 9.7 g/dL (6.7-8.2)
[2022-01-21 11:58] LABS: CLARITY,URINE CLEAR (CLEAR); GLUCOSE, URINE (UA) NEGATIVE (NEGATIVE); KETONES,URINE (UA) 40 mg/dL (NEGATIVE); LEUKOCYTE ESTERASE, URINE NEGATIVE (NEGATIVE); NITRITE,URINE NEGATIVE (NEGATIVE); OCCULT BLOOD,URINE NEGATIVE (NEGATIVE); PROTEIN,URINE 30 mg/dL (NEGATIVE); UROBILINOGEN,URINE 0.2 (NORMAL) E.U./dL (NORMAL)
[2022-01-21 12:00] LABS: BILIRUBIN,URINE NEGATIVE (NEGATIVE); ICTOTEST,URINE NEGATIVE
[2022-01-21 12:03] LABS: BACTERIA,URINE Few /HPF (None Seen); MUCUS,URINE Moderate Strands; RBC,URINE None Seen /HPF (0-5); SQUAMOUS EPITHELIAL CELL,UR RARE Squamous (<= Few); WBC,URINE 0-3 /HPF (0-3)
[2022-01-21] MEDS: ONDANSETRON 4 MG/2 ML VIAL IVP STA (16:07)
[2022-01-21] MEDS: HYDROmorphone 1 MG/ML CARPUJECT IVP STA (16:08)
[2022-01-21] MEDS: SODIUM CHLORIDE 0.9% 1,000 ML IV STA (16:09)
--- NOTE | 2022-01-21 16:45 | ED Physician Documentation ---
PD HPI ABD PAIN - Stated complaint Stated Complaint: ABD PAIN - Chief complaint Chief Complaint: Abd Pain - History obtained from History obtained from: Patient - History of Present Illness Timing - onset: Today Timing - duration: Hours Timing - details: Abrupt onset, Still present Quality: Cramping, Sharp, Pain Location: Suprapubic Radiation: Lower back Improved by: Laying still Worsened by: Position, Palpation Associated symptoms: Diarrhea. No: Vomiting Similar symptoms before: Diagnosis (irritible bowel) Recently seen: Emergency Dept - Additional information Additional information: 51-year-old Carson Tanner has had a problem with some suprapubic abdominal pain cramping and diarrhea that happens in episodes that appear to be unrelated to anything. He has had evaluation by GI and he has had normal endoscopies both upper and lower. The patient does get dehydrated with the amount of diarrhea he develops and he is here today for abdominal pain cramping and diarrhea with dehydration. The patient does consume cannabis and he has stopped at some point for maybe 10 days. He did not have resolution of symptoms. He does get into the bathtub when this happens. Review of Systems Constitutional: denies: Fever Ears: denies: Ear pain Nose: denies: Congestion Throat: denies: Sore throat Respiratory: denies: Cough GI: reports: Abdominal Pain, Diarrhea. denies: Vomiting : denies: Dysuria, Frequency PD PAST MEDICAL HISTORY - Past Medical History Cardiovascular: Hypertension, High cholesterol, Peripheral Vascular Disease, Murmur Respiratory: COPD Neuro: Headaches, Migraines, Peripheral neuropathy, Tremors Endocrine/Autoimmune: None GI: GERD, GI bleed, Hemorrhoids : Renal insuffiency, Nocturia HEENT: Chronic vision loss, Chronic sinusitis, Chronic hearing loss Psych: Depression, Anxiety, Post traumatic stress disorder Musculoskeletal: Fibromyalgia, Fatigue, Chronic back pain Derm: None - Past Surgical History Past Surgical History: Yes General: Cholecystectomy, Colonoscopy, EGD HEENT: Myringotomy (tubes), Tonsil/Adenoidectomy - Present Medications Home Medications: Ambulatory Orders Medication Instructions Recorded Confirmed Omeprazole 20 mg PO DAILY 04/07/15 12/02/21 Pregabalin [Lyrica] 150 mg PO BID 07/08/16 12/02/21 Dicyclomine [Bentyl] 1 - 2 tab PO QID PRN #20 cap 03/16/21 12/02/21 Baclofen [Lioresal] 10 mg PO Q8HR PRN 12/01/21 12/02/21 Duloxetine HCl [Cymbalta] 60 mg PO BID 12/01/21 12/02/21 Propranolol HCl 20 mg PO BID 12/01/21 12/02/21 SUMAtriptan [Imitrex] 50 - 100 mg ORAL PRN PRN 12/01/21 12/02/21 oxyCODONE/ACET 5/325 [Percocet 5 1 each PO Q8HR PRN 12/01/21 12/02/21 mg/325 mg] Metoclopramide [Reglan] 10 mg PO Q6H PRN #20 tablet 12/02/21 Ondansetron Odt [Zofran] 4 mg TL Q6H PRN #10 tablet 12/02/21 - Allergies Allergies/Adverse Reactions: Allergies Allergy/AdvReac Type Severity Reaction Status Date / Time codeine Allergy Severe Nausea Verified 01/20/22 16:47 ketamine AdvReac Hallucinati Verified 01/20/22 16:47 ons meperidine HCl * AdvReac Headache Verified 01/20/22 16:47 [From Demerol] mirtazapine AdvReac Headache Verified 01/20/22 16:47 - Social History Does the pt smoke?: Yes Smoking Status: Current every day smoker Does the pt drink ETOH?: Yes Does the pt have substance abuse?: Yes - Immunizations Immunizations are current?: Yes - POLST Patient has POLST: No POLST Status: Full Code PD ED PE NORMAL - Vitals Vital signs reviewed: Yes - General General: Alert and oriented X 3, Well developed/nourished, Other (appears to be in pain with clinical reimbursement specialist tone and flattened affect. ) - HEENT HEENT: Atraumatic, PERRL, EOMI, Other (dry mucous membranes ) - Neck Neck: Supple, no meningeal sign, No bony TTP - Cardiac Cardiac: RRR, No murmur - Respiratory Respiratory: No respiratory distress, Clear bilaterally - Abdomen Abdomen: Normal bowel sounds, Soft, Non distended, No organomegaly, Other (mild suprapubic tenderness to palpation. ) - Back Back: No CVA TTP, No spinal TTP - Derm Derm: Normal color, Warm and dry, No rash - Extremities Extremities: No deformity, No edema - Neuro Neuro: Alert and oriented X 3, director economic 2-12 intact, No motor deficit, No sensory deficit, Normal speech Eye Opening: Spontaneous Motor: Obeys Commands Verbal: Oriented GCS Score: 15 - Psych Psych: Normal mood, Normal affect Results - Vitals Vitals: Vital Signs - 24 hr 01/21/22 01/21/22 11:25 15:33 Temperature 36.8 C 36.4 C L Heart Rate 82 88 Respiratory 16 16 Rate Blood Pressure 148/98 H 135/101 H O2 Saturation 99 97 Oxygen O2 Source Room air - Labs Labs: Laboratory Tests 01/21/22 01/21/22 01/21/22 11:37 11:37 11:39 WBC 10.4 RBC 6.45 H Hgb 19.2 H Hct 55.8 H MCV 86.5 MCH 29.8 MCHC 34.4 RDW 13.7 Plt Count 382 MPV 9.7 Neut # (Auto) 6.9 H Lymph # (Auto) 2.7 [place] # (Auto) 0.6 Eos # (Auto) 0.0 Baso # (Auto) 0.1 Absolute Nucleated RBC 0.00 Nucleated RBC % 0.0 Sodium 138 Potassium 4.0 Chloride 99 L Carbon Dioxide 26 Anion Gap 13.0 BUN 24 H Creatinine 1.1 Estimated GFR (MDRD) 70 L Glucose 102 H Calcium 10.1 Total Bilirubin 1.9 H AST 42 ALT 54 Alkaline Phosphatase 98 Total Protein 9.7 H Albumin 5.2 Globulin 4.5 H Albumin/Globulin Ratio 1.2 Lipase 54 H Urine Color DARK YELLOW Urine Clarity CLEAR Urine pH 6.0 Ur Specific [place] 1.025 Urine Protein 30 H Urine Glucose (UA) NEGATIVE Urine Ketones 40 H Urine Occult Blood NEGATIVE Urine Nitrite NEGATIVE Urine Bilirubin NEGATIVE Urine Urobilinogen 0.2 (NORMAL) Ur Leukocyte Esterase NEGATIVE Urine RBC None Seen Urine WBC 0-3 Ur Squamous Epith Cells RARE Squamous Urine Bacteria Few Urine Mucus Moderate Strands Ur Microscopic Review INDICATED Urine Culture Comments NOT INDICATED Procedures - IVC sono (time) 1545 Bedside IVC sono: IVC measures (cm) (0.78), Dehydration (est 2+ liter deficit) PD MEDICAL DECISION MAKING - ED course Complexity details: reviewed old records, reviewed results, re-evaluated patient, considered differential, d/w patient, d/w family ED course: 51-year-old male with suprapubic abdominal pain and diarrhea has had extensive work-up has follow-up with his primary and today he is treated symptomatically with intravenous saline Dilaudid and Zofran. Departure - Departure Disposition: 01 Home, Self Care Clinical Impression: Dehydration Abdominal pain Qualifiers: Abdominal location: periumbilical Qualified Code(s): R10.33 - Periumbilical pain Condition: Stable Instructions: ED Dehydration, ED Abdominal Pain Unkn Cause Male Follow-Up: BRETT TAM MD [Primary Care Provider] -
[2022-01-21 17:17] VITALS: BP 148/105
== END 2022-01-21 17:40 | disposition home or self-care (01) ==
LOC: ED 11:02
DX: E86.0 Dehydration (principal); R10.33 Periumbilical pain; F17.200 Nicotine dependence, unspecified, uncomplicated
CPT/HCPCS: 36415; 80053; 81001; 83690; 85025; 96361; 96374; 96375; 99282; 99283; J1170; 81003; 87086

== ENCOUNTER 2022-10-04 07:53 | Emergency (ER) | payer MEDICARE, MEDICAID ==
[2022-10-04] MEDS ORDERED: MOLNUPIRAVIR PREPACK PO STA (08:20)
--- NOTE | 2022-10-04 08:27 | ED Physician Documentation ---
History of Present Illness - Stated complaint Stated Complaint: COUGH/C+ - Chief complaint Chief Complaint: General - History obtained from History obtained from: Patient, Family - History of Present Illness Pain level max: 0 Pain level now: 0 - Additonal information Additional information: Patient is a 52-year-old male who presents to the emergency department after becoming sick yesterday, cough, congestion. Family recently had COVID. He tested positive for COVID. He has had a COVID vaccination in 2020. Here requesting antiviral therapy. No difficulty breathing. No hypoxia. Review of Systems Nose: reports: Rhinorrhea / runny nose, Congestion GI: denies: Vomiting, Diarrhea Skin: denies: Rash Musculoskeletal: denies: Neck pain Neurologic: denies: Headache PD PAST MEDICAL HISTORY - Past Medical History Cardiovascular: Hypertension, High cholesterol, Peripheral Vascular Disease, Murmur Respiratory: COPD Neuro: Headaches, Migraines, Peripheral neuropathy, Tremors Endocrine/Autoimmune: None GI: GERD, GI bleed, Hemorrhoids : Renal insuffiency, Nocturia HEENT: Chronic vision loss, Chronic sinusitis, Chronic hearing loss Psych: Depression, Anxiety, Post traumatic stress disorder Musculoskeletal: Fibromyalgia, Fatigue, Chronic back pain Derm: None - Past Surgical History Past Surgical History: Yes General: Cholecystectomy, Colonoscopy, EGD HEENT: Myringotomy (tubes), Tonsil/Adenoidectomy - Present Medications Home Medications: Ambulatory Orders Medication Instructions Recorded Confirmed Omeprazole 20 mg PO DAILY 04/07/15 12/02/21 Pregabalin [Lyrica] 150 mg PO BID 07/08/16 12/02/21 Dicyclomine [Bentyl] 1 - 2 tab PO QID PRN #20 cap 03/16/21 12/02/21 Baclofen [Lioresal] 10 mg PO Q8HR PRN 12/01/21 12/02/21 Duloxetine HCl [Cymbalta] 60 mg PO BID 12/01/21 12/02/21 Propranolol HCl 20 mg PO BID 12/01/21 12/02/21 SUMAtriptan [Imitrex] 50 - 100 mg ORAL PRN PRN 12/01/21 12/02/21 oxyCODONE/ACET 5/325 [Percocet 5 1 each PO Q8HR PRN 12/01/21 12/02/21 mg/325 mg] Metoclopramide [Reglan] 10 mg PO Q6H PRN #20 tablet 12/02/21 Ondansetron Odt [Zofran] 4 mg TL Q6H PRN #10 tablet 12/02/21 - Allergies Allergies/Adverse Reactions: Allergies Allergy/AdvReac Type Severity Reaction Status Date / Time codeine Allergy Severe Nausea Verified 10/04/22 08:07 ketamine AdvReac Hallucinati Verified 10/04/22 08:07 ons meperidine HCl * AdvReac Headache Verified 10/04/22 08:07 [From Demerol] mirtazapine AdvReac Headache Verified 10/04/22 08:07 - Social History Does the pt smoke?: Yes Smoking Status: Current every day smoker Does the pt drink ETOH?: Yes Does the pt have substance abuse?: Yes - Immunizations Immunizations are current?: Yes - POLST Patient has POLST: No POLST Status: Full Code PD ED PE NORMAL - Vitals Vital signs reviewed: Yes - General General: Alert and oriented X 3, No acute distress - HEENT HEENT: PERRL, Moist mucous membranes - Neck Neck: Supple, no meningeal sign - Cardiac Cardiac: RRR, Strong equal pulses - Respiratory Respiratory: No respiratory distress, Clear bilaterally - Abdomen Abdomen: Soft, Non tender, Non distended - Derm Derm: Warm and dry - Extremities Extremities: No edema - Neuro Neuro: Alert and oriented X 3 - Psych Psych: Normal mood, Normal affect Results - Vitals Vitals: Vital Signs - 24 hr 10/04/22 10/04/22 08:03 08:33 Temperature 36.0 C L Heart Rate 90 89 Respiratory 20 16 Rate Blood Pressure 127/100 H 127/78 O2 Saturation 100 99 Oxygen O2 Source Room air PD Medical Decision Making - ED course Complexity details: considered differential, d/w patient ED course: Patient is well-appearing, nontoxic. Afebrile. No hypoxia. No respiratory distress. He is requesting antiviral therapy. He is on medications that would interact with Paxlovid, therefore molnupiravir was given. Patient and family counseled regarding signs and symptoms for which I believe and urgent re- evaluation would be necessary. Patient with good understanding of and agreement to plan and is comfortable going home at this time This document was made in part using voice recognition software. While efforts are made to proofread this document, sound alike and grammatical errors may occur. Departure - Departure Disposition: 01 Home, Self Care Clinical Impression: COVID-19 Condition: Good Instructions: ED Viral Syndrome Follow-Up: BRETT TAM MD [Primary Care Provider] - As Needed Comments: Drink plenty of fluids and rest. Return if you worsen. You were prescribed molnupiravir today. Please take as directed. Discharge Date/Time: 10/04/22 08:33
[2022-10-04 08:34] VITALS: BP 127/78
== END 2022-10-04 08:33 | disposition home or self-care (01) ==
LOC: ED 07:53
DX: U07.1 COVID-19 (principal); I10 Essential (primary) hypertension; F17.200 Nicotine dependence, unspecified, uncomplicated
CPT/HCPCS: 99282; 99283; J3490

== ENCOUNTER 2022-12-20 17:00 | Emergency (ER) | payer MEDICARE, MEDICAID ==
[2022-12-20 18:11] VITALS: BP 133/93
--- NOTE | 2022-12-20 18:18 | ED Physician Documentation ---
History of Present Illness - Stated complaint Stated Complaint: LT HAND/ARM NUMBNESS - Chief complaint Chief Complaint: General - History obtained from History obtained from: Patient - Additonal information Additional information: For the last month he has had numbness in the left hand that started in the index finger. Subsequently spread to the first and third fingers and then the numbness kind of came up the arm. He has chronic neck pain. PD PAST MEDICAL HISTORY - Past Medical History Cardiovascular: Hypertension, High cholesterol, Peripheral Vascular Disease, Murmur Respiratory: COPD Neuro: Headaches, Migraines, Peripheral neuropathy, Tremors Endocrine/Autoimmune: None GI: GERD, GI bleed, Hemorrhoids : Renal insuffiency, Nocturia HEENT: Chronic vision loss, Chronic sinusitis, Chronic hearing loss Psych: Depression, Anxiety, Post traumatic stress disorder Musculoskeletal: Fibromyalgia, Fatigue, Chronic back pain Derm: None - Past Surgical History Past Surgical History: Yes General: Cholecystectomy, Colonoscopy, EGD HEENT: Myringotomy (tubes), Tonsil/Adenoidectomy - Present Medications Home Medications: Ambulatory Orders Medication Instructions Recorded Confirmed Omeprazole 20 mg PO DAILY 04/07/15 12/02/21 Pregabalin [Lyrica] 150 mg PO BID 07/08/16 12/02/21 Dicyclomine [Bentyl] 1 - 2 tab PO QID PRN #20 cap 03/16/21 12/02/21 Baclofen [Lioresal] 10 mg PO Q8HR PRN 12/01/21 12/02/21 Duloxetine HCl [Cymbalta] 60 mg PO BID 12/01/21 12/02/21 Propranolol HCl 20 mg PO BID 12/01/21 12/02/21 SUMAtriptan [Imitrex] 50 - 100 mg ORAL PRN PRN 12/01/21 12/02/21 oxyCODONE/ACET 5/325 [Percocet 5 1 each PO Q8HR PRN 12/01/21 12/02/21 mg/325 mg] Metoclopramide [Reglan] 10 mg PO Q6H PRN #20 tablet 12/02/21 Ondansetron Odt [Zofran] 4 mg TL Q6H PRN #10 tablet 12/02/21 predniSONE [Deltasone] 20 mg PO [id number] #21 tab 12/20/22 - Allergies Allergies/Adverse Reactions: Allergies Allergy/AdvReac Type Severity Reaction Status Date / Time codeine Allergy Severe Nausea Verified 12/20/22 18:15 ketamine AdvReac Hallucinati Verified 12/20/22 18:15 ons meperidine HCl * AdvReac Headache Verified 12/20/22 18:15 [From Demerol] mirtazapine AdvReac Headache Verified 12/20/22 18:15 - Social History Does the pt smoke?: Yes Smoking Status: Current every day smoker Does the pt drink ETOH?: Yes Does the pt have substance abuse?: Yes - Immunizations Immunizations are current?: Yes - POLST Patient has POLST: No POLST Status: Full Code PD ED PE NORMAL - Vitals Vital signs reviewed: Yes - General General: Alert and oriented X 3, No acute distress - HEENT HEENT: PERRL, EOMI - Derm Derm: Normal color, Warm and dry - Neuro Neuro: Alert and oriented X 3, Normal speech, Other (see mdm- txt box too small) Results - Vitals Vitals: Vital Signs - 24 hr 12/20/22 12/20/22 17:07 18:10 Temperature 36.8 C Heart Rate 85 79 Respiratory 16 16 Rate Blood Pressure 125/85 H 133/93 H O2 Saturation 98 97 Oxygen O2 Source Room air PD Medical Decision Making - ED course ED course: DONNIE neuro exam: I am not able to elicit any tenderness of the median nerve at the wrist or significantly of the ulnar nerve at the elbow. He has mild decrease sensation in a C6-C7 distribution in the left hand with tingling there. Some mild tenderness of the left side of the neck. Normal and equal bilateral supervisor/port director strength, thumb extension, interosseous strength, flexion and extension of the wrists. This is consistent with probably a cervical radiculopathy. Discussed with patient we will trial some steroids and he should talk to his doctor about MRI of the cervical spine plus or minus nerve conduction study referral. Departure - Departure Disposition: 01 Home, Self Care Clinical Impression: Arm paresthesia, left Condition: Stable Record reviewed to determine appropriate education?: Yes Instructions: ED Cervical Radiculopathy Prescriptions: predniSONE [Deltasone] 20 mg PO [id number] #21 tab Comments: As discussed, your syndrome is most consistent with a pinched nerve probably in your neck. Follow-up with your doctor for consideration of MRI of your neck plus or minus nerve conduction studies. Return for new or worsening symptoms.
== END 2022-12-20 18:31 | disposition home or self-care (01) ==
LOC: ED 17:00
DX: R20.2 Paresthesia of skin (principal); I10 Essential (primary) hypertension; E78.00 Pure hypercholesterolemia, unspecified; I73.9 Peripheral vascular disease, unspecified; J44.9 Chronic obstructive pulmonary disease, unspecified; G62.9 Polyneuropathy, unspecified; F17.200 Nicotine dependence, unspecified, uncomplicated; Z79.899 Other long term (current) drug therapy
CPT/HCPCS: 99281; 99283